=== PATIENT | female | born 1940 | race Caucasian/White ===

== ENCOUNTER 2024-10-05 06:59 | Day surgery (SDC) | payer MEDICARE, OTHER, SELFPAY ==
[2024-10-05] VITALS (14 sets, daily range): BP systolic 81–116; BP diastolic 47–83; BMI 22.1
[2024-10-05] MEDS: LOW STRENGTH ASPIRIN 324 MG PO (07:31)
[2024-10-05 08:14] LABS: Blood Urea Nitrogen 28 mg/dl (7-17); Calcium 9.7 mg/dl (8.4-10.2); Carbon Dioxide 30 mmol/L (22-30); Chloride 99 mmol/L (98-107); Estimated Creatinine Clearance 35 ml/min; Glucose 110 mg/dl (70-99); Potassium 4.2 mmol/L (3.5-5.1); Sodium 138 mmol/L (135-145); eGFR > 60.00
[2024-10-05 08:27] LABS: Hemoglobin 14.8 g/dL (12.0-16.0); Mean Corp Hgb Conc. 34.4 g/dL (33.0-37.0); Mean Corpuscular Hgb 30.5 pg (27.0-31.0); Mean Corpuscular Volume 88.5 fL (81.0-99.0); Mean Platelet Volume 10.7 fL (7.4-10.4); Platelet Count 170 10^3/uL (130-400); Red Blood Cell Count 4.86 10^6/uL (4.20-5.40); Red Cell Dist. Width 14.3 % (11.5-14.5); White Blood Cell Count 5.5 10^3/uL (4.8-10.8)
--- NOTE | 2024-10-05 10:43 | ITS.CL.CATH ---
Tool Design Checker - Catheterization
Cardiac Catheterization
Procedure Report:
LEFT HEART CATHETERIZATION
Date of Procedure: October 05, 2024
Procedures performed:
1: Coronary angiography
2: Left ventriculography
Primary Care Physician: Dr. Dayana Dotson
Primary Laboratory Scientist: Dr. Quinten Pepper
INDICATION: The patient is an 84-year-old woman with a past medical history significant for possible TIA in 2018 and known significant mitral regurgitation that has been followed and stable since 2008. She recently developed exertional dyspnea and
shortness of breath and was found on echocardiography on September 12 to be in new atrial fibrillation. Since adding Bumex 1 mg daily she has felt better with less exertional dyspnea. In light of her new symptoms and known severe mitral regurgitation
she is referred for cardiac catheterization in preparation for possible mitral valve repair.
ACCESS: The patient was prepped and draped in usual sterile fashion. A 5 Greek sheath was placed in the right radial artery using the Seldinger over the wire technique.
HEMODYNAMIC FINDINGS (mmHg):
LV(s/d,EDP): 115/12, 17
Ao(s/d,m): 115/67, 90
ANGIOGRAPHIC FINDINGS:
Single-plane Left Ventriculography in WOODS Projection: The left ventricular size size appears top normal subjectively. LV systolic function is preserved and visually estimated at 65%. 4+ mitral gravitation. Severe left atrial dilation.
Coronary Angiography:
Dominance: Right
Left Main: Normal
Left Anterior Descending: The left anterior descending artery is a large-caliber vessel that gives rise to 2 major diagonal branches. These vessels are widely patent with no focal disease and normal flow.
Left Circumflex: The left circumflex is a medium caliber nondominant system that gives rise to 1 major obtuse marginal branch which appears angiographically normal with normal flow.
Right Coronary: The right coronary artery is a large-caliber dominant vessel that gives rise to a medium caliber posterior descending artery and large branching posterior left ventricular branch system that perfuses the lateral wall. These vessels
are widely patent with no focal disease and normal flow.
Fluoroscopy Time (min): 2.5
Radiation Dose (mGy): 470
DAP (Gy.cm2): 905
Closure device: None. A TR band was applied for hemostasis at the right wrist.
Complications: None.
ASSESSMENT:
1: Normal coronary arteries.
2: Severe mitral regurgitation with preserved LV systolic function.
CONCLUSIONS and RECOMMENDATIONS:
1: Proceed with mitral valve repair evaluation as scheduled. The patient is having CT surgery consultation with Dr. Darrion Osborne next .
2: Resume medical therapy including Raphaelis neil.
Le Elliott M.D.
Copy to: Dr. Dayana Dotson
[2024-10-05] MEDS: NSS 1000 IV (10:48)
[2024-10-05] MEDS: LOPRESSOR 50 MG PO (11:05)
== END 2024-10-05 13:30 | disposition home or self-care (01) ==
LOC: CATH 06:59
PROVIDERS: ATTENDING PHYSICIAN Internal Medicine Interventional Cardiology; FAMILY PHYSICIAN Family Medicine; OTHER PHYSICIAN Internal Medicine Cardiovascular Disease
DX: I34.0 Nonrheumatic mitral (valve) insufficiency (principal); R06.09 Other forms of dyspnea; R06.02 Shortness of breath; I48.91 Unspecified atrial fibrillation; Z79.01 Long term (current) use of anticoagulants
CPT/HCPCS: 80048; 85027; 93458; C1769; C1894; Q9967

== ENCOUNTER 2024-10-20 07:05 | Day surgery (SDC) | payer MEDICARE, OTHER, SELFPAY ==
[2024-10-20 07:52] VITALS: BMI 21.8
== END 2024-10-20 11:31 | disposition home or self-care (01) ==
LOC: CATH 07:05
PROVIDERS: ATTENDING PHYSICIAN Internal Medicine Cardiovascular Disease; FAMILY PHYSICIAN Family Medicine; OTHER PHYSICIAN Internal Medicine Cardiovascular Disease
DX: I48.92 Unspecified atrial flutter (principal); I48.91 Unspecified atrial fibrillation; E78.00 Pure hypercholesterolemia, unspecified; I08.1 Rheumatic disorders of both mitral and tricuspid valves; Z86.73 Personal history of transient ischemic attack (TIA), and cerebral infarction without residual deficits; Z79.01 Long term (current) use of anticoagulants; I70.0 Atherosclerosis of aorta; I08.8 Other rheumatic multiple valve diseases
CPT/HCPCS: 93312; 93320; 93325

== ENCOUNTER 2024-11-08 04:54 | Inpatient (IN) | payer MEDICARE, OTHER, SELFPAY ==
[2024-10-20 11:58] VITALS: BMI 21.3
[2024-10-20 13:09] LABS: INR 1.31; PT 16.8 Sec (11.4-14.6)
[2024-10-20 13:10] LABS: Urine Albumin 1+ (Neg - Trace); Urine Bilirubin Negative (Negative); Urine Character Slightly Cloudy (Clear); Urine Color Yellow; Urine Glucose Negative (Negative); Urine Ketone Negative (Negative); Urine Leukocyte Negative (Negative); Urine Nitrite Negative (Negative); Urine Occult Blood 1+ (Negative); Urine Urobilinogen Negative (Neg - 1+)
[2024-10-20 13:10] LABS: APTT 34.2 Sec (23.4-35.0)
[2024-10-20 13:17] LABS: % Basophils 0.8 % (0-2); % Eosinophils 0.5 % (0-6); % Immature Granulocytes 0.2 % (0-0.5); % Lymphocytes 18.1 % (20.5-51.1); % Monocytes 8.4 % (1.7-9.3); Absolute Basophils 0.1 10^3/uL (0-0.2); Absolute Lymphocytes 1.1 10^3/uL (1.2-3.4); Absolute Monocytes 0.5 10^3/uL (0.1-0.6); Absolute Neutrophils 4.4 10^3/uL (1.4-6.5); Hematocrit 42.3 % (37.0-47.0); Hemoglobin 14.5 g/dL (12.0-16.0); Mean Corp Hgb Conc. 34.3 g/dL (33.0-37.0); Mean Corpuscular Hgb 30.4 pg (27.0-31.0); Mean Corpuscular Volume 88.7 fL (81.0-99.0); Mean Platelet Volume 10.8 fL (7.4-10.4); Nucleated Red Blood Cells % 0 %; Platelet Count 153 10^3/uL (130-400); Red Blood Cell Count 4.77 10^6/uL (4.20-5.40); Red Cell Dist. Width 13.7 % (11.5-14.5); White Blood Cell Count 6.1 10^3/uL (4.8-10.8)
[2024-10-20 13:49] LABS: ALT (SGPT) 32 U/L (0-35); AST (SGOT) 34 U/L (14-36); Albumin 4.6 g/dl (3.5-5.0); Alkaline Phosphatase 71 U/L (38-126); Blood Urea Nitrogen 26 mg/dl (7-17); Calcium 9.6 mg/dl (8.4-10.2); Carbon Dioxide 28 mmol/L (22-30); Chloride 102 mmol/L (98-107); Direct Bilirubin 0.2 mg/dl (0.0-0.4); Estimated Creatinine Clearance 35 ml/min; Glucose 96 mg/dl (70-99); Sodium 140 mmol/L (135-145); Total Bilirubin 1.3 mg/dl (0.2-1.3); Total Protein 6.6 g/dl (6.3-8.2); eGFR > 60.00
--- NOTE | 2024-10-20 13:53 | CM ---
CM following for DC planning needs.
Met w/ patient + son, Simon during PATs for planned MVR.
Pt. resides alone in a private, 1 STH w/ 2 TOBY. Pt. is recently (since 05/2024). She is functionally indep. w/ ADLs, mobility without the use of any assisted device. Son resides closeby and will assist PRN.
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
Pt. has RX plan and uses [facility] in [place].
We reviewed pre and post op routines.
Soap, shower instructions and Cardiac Surgery booklet provided.
We reviewed post op restrictions to include lifting, driving, flying.
We discussed post op MD appointments, Cardiac Rehab and visit from CT Transitional Care RN.
Plan is for CT Surgery, 10/25.
Anticipated DC plan is for home w/ CT Transitional Care RN.
CM to follow.
[2024-10-20 14:30] LABS: Urine Amorphous Seen; Urine Squamous Cell 0-2 /LPF (Few)
[2024-10-20 14:33] LABS: Urine Red Blood Cell 0-2 /HPF (0-2); Urine White Cell 0-2 /HPF (0-5)
[2024-10-20 15:14] LABS: Glycohemoglobin (HgbA1c) 5.4 % (4.0-5.6)
[2024-11-08] VITALS (15 sets, daily range): BP systolic 90–146; BP diastolic 41–108; BMI 21.4
[2024-11-08] MEDS: MAGNESIUM OXIDE 500 MG PO (05:36)
[2024-11-08] MEDS: LOPRESSOR 25 MG PO (05:36)
[2024-11-08] MEDS: PROTONIX 40 MG PO (05:36)
[2024-11-08] MEDS: BACTROBAN 2% OINTMENT 1 APPLIC NASAL ×2 (05:37→22:39)
--- NOTE | 2024-11-08 06:10 | W.CVOR.SURPR ---
CVOR Surgeon Immed Pre Op
-
I have examined this patient prior to performance of the scheduled procedure.
The patient's condition is unchanged from the time of the dictated/written History and
Physical and the patient is able to undergo the scheduled procedure.
Mv repair
TV repair
MAZE NENA E
[2024-11-08 07:11] LABS: ACT+ - POC 123 Seconds (82-134)
[2024-11-08 07:33] LABS: Urine Albumin 2+ (Neg - Trace); Urine Bilirubin Negative (Negative); Urine Character Clear (Clear); Urine Color Yellow; Urine Glucose Negative (Negative); Urine Ketone Negative (Negative); Urine Leukocyte Negative (Negative); Urine Nitrite Negative (Negative); Urine Occult Blood Negative (Negative); Urine Urobilinogen Negative (Neg - 1+)
[2024-11-08 08:25] LABS: ACT+ - POC 969 Seconds (82-134)
[2024-11-08 08:52] LABS: B.E. - POC -1.8 mmol/L; Glucose - POC 97 mg/dl (70-99); HCO3 - POC 23 mmol/L (21-28); Hematocrit - POC 32 % PCV (37-47); Hemodilution- POC No; Hemoglobin Calculated - POC 10.7; Ionized Calcium - POC 1.14 mmol/L (1.15-1.33); Lactate - POC < 0.30 mmol/L (0.36-0.75); PCO2 - POC 40 mmHg (35-48); PO2 - POC 469 mmHg (83-108); Potassium - POC 3.9 mmol/L (3.5-5.1); Sodium - POC 142 mmol/L (136-145); Specimen Type - POC Arterial; pH - POC 7.38 (7.35-7.45)
--- NOTE | 2024-11-08 08:55 | CM ---
Reviewed chart. Mrs. Antunez is in the operating room today. Prior to admission she resides alone in a one story home with two steps to enter. Prior to admission she was independent with ambulation and adls. Prior to admission she does not have
any DME in the home. She has a prescription plan nad uses [facility]. She has a son who resides nearby and is supportive. Medical work-up in progress. The discharge plan is to return home with a home visit by the Transitional Care Nurse
when medically stable.
[2024-11-08 08:57] LABS: Urine Amorphous Seen
[2024-11-08 08:58] LABS: Urine Squamous Cell 0-2 /LPF (Few); Urine Urothelial Cell 0-2 /LPF (FEW)
[2024-11-08 08:59] LABS: Urine Bacteria Moderate (Negative); Urine Red Blood Cell 0-2 /HPF (0-2); Urine White Cell 0-2 /HPF (0-5)
[2024-11-08 09:41] LABS: ACT+ - POC 723 Seconds (82-134)
[2024-11-08 09:43] LABS: B.E. - POC 2.4 mmol/L; Glucose - POC 122 mg/dl (70-99); HCO3 - POC 23 mmol/L (21-28); Hematocrit - POC 30 % PCV (37-47); Hemodilution- POC Yes; Hemoglobin Calculated - POC 10.4; Ionized Calcium - POC 0.89 mmol/L (1.15-1.33); Lactate - POC < 0.30 mmol/L (0.36-0.75); PCO2 - POC 24 mmHg (35-48); PO2 - POC 486 mmHg (83-108); Potassium - POC 5.1 mmol/L (3.5-5.1); Sodium - POC 139 mmol/L (136-145); Specimen Type - POC Arterial
[2024-11-08 09:45] LABS: ACT+ - POC > 1003 Seconds (82-134)
[2024-11-08 10:10] LABS: ACT+ - POC 555 Seconds (82-134)
[2024-11-08 10:56] LABS: B.E. - POC 2.8 mmol/L; Glucose - POC 131 mg/dl (70-99); HCO3 - POC 26 mmol/L (21-28); Hematocrit - POC 25 % PCV (37-47); Hemodilution- POC Yes; Hemoglobin Calculated - POC 8.5; Ionized Calcium - POC 1.03 mmol/L (1.15-1.33); Lactate - POC 0.34 mmol/L (0.36-0.75); O2 Saturation %Calculated-POC 99.9 % (94-98); PCO2 - POC 35 mmHg (35-48); PO2 - POC 282 mmHg (83-108); Potassium - POC 4.6 mmol/L (3.5-5.1); Sodium - POC 144 mmol/L (136-145); Specimen Type - POC Arterial; pH - POC 7.49 (7.35-7.45)
[2024-11-08 10:59] LABS: ACT+ - POC 120 Seconds (82-134)
[2024-11-08 11:17] LABS: B.E. - POC 0.4 mmol/L; Glucose - POC 128 mg/dl (70-99); HCO3 - POC 24 mmol/L (21-28); Hematocrit - POC 27 % PCV (37-47); Hemodilution- POC Yes; Hemoglobin Calculated - POC 9.3; Ionized Calcium - POC 1.26 mmol/L (1.15-1.33); Lactate - POC 0.62 mmol/L (0.36-0.75); PCO2 - POC 35 mmHg (35-48); PO2 - POC 522 mmHg (83-108); Potassium - POC 4.3 mmol/L (3.5-5.1); Sodium - POC 144 mmol/L (136-145); Specimen Type - POC Arterial; pH - POC 7.45 (7.35-7.45)
[2024-11-08 12:17] LABS: B.E. - POC -3.2 mmol/L; Glucose - POC 151 mg/dl (70-99); HCO3 - POC 22 mmol/L (21-28); Hematocrit - POC 31 % PCV (37-47); Hemodilution- POC Yes; Hemoglobin Calculated - POC 10.5; Ionized Calcium - POC 1.18 mmol/L (1.15-1.33); Lactate - POC 1.94 mmol/L (0.36-0.75); PCO2 - POC 37 mmHg (35-48); PO2 - POC 547 mmHg (83-108); Potassium - POC 3.7 mmol/L (3.5-5.1); Sodium - POC 145 mmol/L (136-145); Specimen Type - POC Arterial; pH - POC 7.38 (7.35-7.45)
[2024-11-08 12:52] LABS: Glucose - Point of Care 183 mg/dl (70-99)
[2024-11-08 13:04] LABS: B.E. - POC -1.4 mmol/L; Blood Urea Nitrogen - POC 17 mg/dl (3-120); Chloride - POC 112 mmol/L (96-111); Creatinine - POC 0.71 mg/dl (0.3-1.0); Glucose - POC 185 mg/dl (70-99); HCO3 - POC 23 mmol/L (21-28); Hematocrit - POC 30 % PCV (37-47); Hemodilution- POC Yes; Hemoglobin Calculated - POC 10.3; Ionized Calcium - POC 1.14 mmol/L (1.15-1.33); Lactate - POC 3.11 mmol/L (0.36-0.75); O2 Saturation %Calculated-POC 99.2 % (94-98); PCO2 - POC 35 mmHg (35-48); PO2 - POC 136 mmHg (83-108); Potassium - POC 3.2 mmol/L (3.5-5.1); Sodium - POC 147 mmol/L (136-145); Specimen Type - POC Arterial; pH - POC 7.42 (7.35-7.45)
[2024-11-08] MEDS: TYLENOL PO ×2 (13:06→22:12)
[2024-11-08] MEDS: NEURONTIN PO ×3 (13:06→22:12)
[2024-11-08] MEDS: VITAMIN C PO (13:06)
[2024-11-08] MEDS: ANCEF 10 IV ×2 (13:06)
[2024-11-08] MEDS: NSS 500 IV (13:06)
[2024-11-08] MEDS: PITRESSIN 100 IV (13:07)
[2024-11-08] MEDS: LR 250 ML IV (13:10)
--- NOTE | 2024-11-08 13:12 | W.PN.CT.SURG ---
CT Surgery Operative Note
-
CARDIAC SURGERY OPERATIVE REPORT
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
Postoperative Diagnosis: Same, acute mild RV and LV systolic and diastolic heart failure
Procedure(s) Performed:
1. Standard sternotomy with aortic and bicaval cannulation
2. Open surgical left atrial maze and right atrial maze [combination of RF and cryoablation]
3. Left atrial appendage exclusion [45 mm clip]
4. Radical mitral valve repair [triangular resection of P2 flail segment with primary repair, cleft closure between P2 and P3 and P1 and P2, 34 mm band annuloplasty]
5. Tricuspid valve repair [30 mm band annuloplasty]
6. Placement of temporary atrial and ventricular pacing wires
7. Transesophageal echocardiography
Date of Surgery: 11/08/2024
Comorbidities:
1. Degenerative mitral valve disease with severe insufficiency, type II pathology with some component of type I pathology
2. Functional tricuspid valve insufficiency
3. PVCs
4. TIA
5. Atrial fibrillation
6. Osteoporosis
7. Supraventricular tachycardia
8. CHF, significant volume overload
Attending Surgeon: Salbador Osborne MD, MS
Assistants: Ed Diallo PA-C (present and necessary to library assistant, retraction, suction, exposure, suture management, and wound closure under my direction)
Anesthesiology: Matthew Hernandez MD and Jorgito Petersen CRNA
Scrub and Circulating RNs: Abi Cisse RN, Octavia Bajwa RN
Rn Dermatology: Jacqueline Palacios CCP
Anesthesia: GETA
EBL: per perfusion records
Products: 1 prbcs (for hemodilution)
CPB Time: 122 minutes
Aortic Cross Clamp Time: 97 minutes
Indication(s) for Procedures: This is an 84-year-old female with severe mitral valve sufficiency with concomitant moderate to moderately severe tricuspid insufficiency that is functional in nature. She has been experiencing more shortness of breath
and fatigue in comparison to a year ago she feels worse. Really she describes more symptoms in the last month really around the time that she developed atrial fibrillation. She was offered surgical repair of both her valves as well as treatment of
her atrial fibrillation in the form of the maze and left atrial appendage exclusion..
Mitral Valve Description: Thickening of both the anterior and posterior leaflets, flail segment of the P2 scallop with multiple torn cords, asymmetrical dilation at the P2 P3 to commissure area, large cleft between P1 and P2 and P2 and P3.
Tricuspid Valve Description: Functional, dilated annulus, normal-appearing leaflets.
Findings: Left ventricular ejection fraction preoperatively was 55% with no significant regional wall motion abnormalities. She does have a history of cardiomyopathy with mildly dilated right and left ventricles. Her left atrium and right atrium
are also dilated. Following surgery EF did reduce to +45% and she had some septal inferior wall hypokinesis with dyskinesia. The lateral wall was moving appropriately. Her right ventricle did appear to be mild to mild to moderately depressed
after valve repair. Her mitral valve was repaired using a combination of resection and band annuloplasty. There was an obvious flail segment of P2 with multiple torn cords this was resected in a triangular fashion and reapproximated primarily. I
then close collapse along the P1 P2 and P2 P3 segment by 34 mm band annuloplasty was secured to place using a total of 12 nonpledgeted 2 Ethibond sutures from trigone to trigone with core knots. Dynamic inflation of the ventricle demonstrated
appropriate coaptation. The tricuspid valve was functionally dilated and a total of 9 nonpledgeted 2 Ethibond sutures were placed on the anterior septal commissure to the midportion of the septal leaflet. This secured a 30 mm band annuloplasty
into place. At the conclusion of the case off cardiopulmonary bypass there was no residual mitral valve insufficiency and no residual tricuspid valve insufficiency. The mean gradient across the mitral valve was 2 mmHg and the mean gradient across
tricuspid valve was 1 mmHg. She did have significant PACs conclusion of the case and required defibrillation x 2 likely secondary to air entrainment down the coronary. Follow-up transesophageal echocardiogram demonstrated that there was still
residual air coming out of her pulmonary veins and sitting in her left atrium. There was difficulty with floating the [place] after the case and so a cardiac index was not obtained. However PA pressures were appropriately in the 30s. She did require
1 unit of PRBCs for hemodilution. She left the OR on 6 of epi, 5 with dobutamine, 8 on Levophed
Ablation Lines:
1. Box lesion to posterior LA wall
2. NENA lesion + NENA Exclusion + Division of Ligament of Ilya
3. Coronary sinus lesion
4. Posterior mitral annular line toward P2/P3
5. Tricuspid annular line
6. RAA line
7. SVC and IVC lines
Specimen(s): none.
Prosthesis:
1. 45mm NENA Clip, [id number]
2. 34 mm Tian physio flex annuloplasty band, serial #[id number]
3. 30 mm Medtronic triad tricuspid annuloplasty band, serial number [id number]
4. EVARREST hemostatic agent upon the right atrium as it was extremely thin walled.
5. Multiple 5-0 Prolene suture
Description of Procedure: The patient was taken to the operating room. Their identity and procedure to be performed were verified and they were positioned supine on the operating table. Induction via general anesthesia with endotracheal intubation
was performed and central venous access and arterial monitoring were inserted. A preoperative transesophageal echocardiogram was performed to assess cardiac function and valvular function. The patient was then prepped and draped from chin to feet in
a sterile fashion. A preoperative time-out was performed with all members of the team present. A midline chest incision was performed along with median sternotomy. The innominate vein was isolated. Full heparinization was given (a total of 30,000
units). We created a pericardial well. The aortic cannulation site was chosen where it was soft, pliable, and free of calcium. Cannulation was performed with an arterial cannula in the ascending aorta, angled metal tip cannular in the superior vena
cava and straight bendable cannula in the inferior vena cava. The arterial cannula line had an appropriate bounce and correlating pressures. Next, a root vent/antegrade cannula was inserted into the ascending aorta. The ACT was confirmed to be over
400 and retrograde autologous priming was performed before commencing cardiopulmonary bypass. At this point the SVC was away from the right pulmonary artery and the oblique sinus was developed. The encompass clamp was then passed
underneath the SVC and IVC across the dorsal oblique sinuses, wrist. 3 successful pairs ablation were then performed with RF ablation. The pulmonary artery was away from the aorta to facilitate a clamp site. Sondergaard�s groove was
developed after creating the oblique sinus. The aortic cross-clamp was placed after decreasing the flow on the bypass and mean arterial pressure. A total of 1.2L initial dose of antegrade Del-Nido cardioplegia solution was given and planned for
re-dosing every 75 minutes as necessary. There was rapid electro-mechanical arrest of the heart at 250 cc of cardioplegia. The left ventricle was observed for distention on echocardiogram and manual palpation. Cold slush was placed into a lap on the
RV and we systemically cooled to 34 degrees centigrade. Once the heart was fully arrested was rotated medially and the left atrial appendage was clipped with a 45 mm device flush the base after dividing the ligament of Ilya.
Carbon dioxide was used to flood the field. Next, the mitral valve was accessed via the left atrium followed by valve analysis. Additional cryo lines were then performed at the coronary sinus, mitral annulus, and left atrial appendage with 2
minutes of freezing time each. The mitral valve was repaired as described above. The left atrium was then reapproximated with 3-0 Prolene after de-airing.
While the heart was still arrested, I opened the right atrium longitudinally. I then performed a cryo lesion set across the tricuspid valve annulus and used RF ablation for the right atrial appendage, SVC and IVC lines. The cathy terminalis was
also cut sharply. Annular sutures were placed starting at the mid-portion of the septal leaflet avoiding the AV node and working counter-clockwise toward the anteroseptal leaflet commisure. The tricuspid valve was repaired as described above and
the swan was manually replaced into the right ventricle. The patient was placed into a steep Trendelenburg position and de-airing maneuvers were then performed. At this point flows in the pump were lowered and the cross-clamp was removed with the
root vent turned on. The RA suture line was closed in two layers with 5-0 prolene in a running fashion while the heart was reperfusing and bleeding.
De-airing maneuvers were performed and temporary atrial and ventricular pacing wires were placed at the SVC/RA junction and base of the right ventricle, respectively. Transesophageal echocardiography revealed no evidence of systolic anterior motion
and ventricular function was normal. Once de-airing was satisfactory the left ventricular and root vents were removed. After verifying acceptable parameters, we initiated weaning from cardiopulmonary bypass. Once we were off cardiopulmonary bypass,
the venous cannulas was clamped and removed sequentially. A test dose of protamine was administered and the patient was monitored for any adverse reaction before resuming protamine. Once half of the protamine dose was delivered, pump suckers were
turned off and the systolic blood pressure was lowered for aortic decannulation. The aortic cannula was removed and purse strings were tied down. All cannulation sites were oversewn with a 4-0 prolene. The left atrial suture line was inspected and
hemostasis was confirmed. Mediastinal hemostasis was obtained. Two #24 Kevin drains were placed within the pericardium. The sternum was approximated with 4 #7 single and 3 #8 double stainless steel wires. Fascia was approximated with #1 vicryl
suture. The subcutaneous, dermis and epidermis were closed in layers in a running fashion. The skin wound was cleansed and dressed.
All instrument, sponge, and needle counts were confirmed to be correct x 2 at the end of the operation. While the draping, the patient did progress into ventricular fibrillation x 2 requiring defibrillation. Reassessment of the heart under SARAI
demonstrated there was residual air emanating from the pulmonary veins and sitting in the left atrium. The patient was placed into a steep Trendelenburg position with the right side up. The [place] was then refloated under echo guidance. Inotropic
support was initiated. The patient was transferred to the cardiac intensive care unit in critical but stable condition.
I, Dr. Salbador Osborne, was present, scrubbed for, and performed all critical elements of this procedure.
Salbador Osborne MD, MS
Cardiothoracic Surgeon
[facility]
This dictation was created using the Creator Up dictation system. Please excuse any grammatical, typographical, or 'sound alike' errors
--- NOTE | 2024-11-08 13:15 | PTCARENOTE ---
pt received from CVOR @~1230, sedated on Precedex gtt, RASS -5. core temp 93.4F, bear hugger applied. 100% AV paced on the monitor, DDI 90/16/16. PAP 30s/10s. CVP ~12, CI 1.83. Dobutamine gtt running as ordered. SBP 100-130s, Levophed gtt running as
ordered. Epinephrine gtt running as ordered. Vasopressin gtt initiated as ordered. pt mechanically ventilated, ETT #7.5, 22cm @lip. SIMV 14, TV 450, PEEP 8, FIO2 40%. POX 100%. CTx2, no air leak or crepitus noted. Zee in place, tea colored/bloody
urine. BRUSH PAINTER aware. surgical sites intact. RIJ cordis/swan maintained. R Radial Teressa flushed, zeroed, and calibrated. L femoral Teressa flushed, zeroed, and calibrated. PIV. insulin gtt running as ordered. pt in reverse Trendelenburg and tilted to R
side per Dr. Osborne, labs drawn as ordered. see worklist for VS, I&O, and assessment.
[2024-11-08 13:26] LABS: Glucose - Point of Care 183 mg/dl (70-99)
[2024-11-08 13:27] LABS: Hematocrit 31.3 % (37.0-47.0); Hemoglobin 10.9 g/dL (12.0-16.0); Platelet Count 100 10^3/uL (130-400)
[2024-11-08 13:28] LABS: B.E. -3.7 mmol/L; HCO3 20.6 mmol/L (21-28); Ionized Calcium 1.13 mMOL/L (1.15-1.33); O2 Saturation % 97.4 % (94-98); PCO2 34 mmHg (32-35); PO2 160 mmHg (83-108); Potassium 3.5 mMOL/L (3.5-5.1); Sodium 139 mMOL/L (136-145); pH 7.39 (7.35-7.45)
[2024-11-08 13:30] LABS: Mixed Venous O2 Saturation 81.5 %
[2024-11-08] MEDS: KCL 50 IV ×5 (13:36→23:32)
--- NOTE | 2024-11-08 13:45 | CON.CAR ---
Addendum entered and electronically signed by David Keating MD 11/08/24 17:02:
I saw and examined the patient.
The Pro Shop Attendant's note was reviewed and I agree with the note.
Comment: Briefly, 84-year-old woman past medical history of heart failure with preserved ejection fraction in the setting of severe mitral and tricuspid regurgitation as well as atrial fibrillation who underwent mitral valve repair/tricuspid valve
repair/left atrial appendage clip/maze earlier today.
At the time my evaluation in the CVICU she was requiring multiple inotropes and pressors (dobutamine, norepi, epi, vasopressin)
Urgent bedside echo performed which showed severe right ventricular systolic dysfunction, preserved LV function and no pericardial effusion
Plan for placement of Impella RP for mechanical support of the right ventricle
Telemetry showing sinus rhythm with frequent PACs, agree with continuing amiodarone to maintain sinus rhythm
Discussed with CT surgery team and interventional cardiology at bedside
Original Note:
Consultation
Consultation Request
Date/Time Consultation Requested: 11/08/2024
Date/Time Consultation Performed: 11/08/2024
Requesting Provider: Dr. Osborne
Performing Provider: Monet Levi PA-C for Dr. Keating
Reason for Consultation: s/p MV repair, TV repair, left atrial appendage clip and Maze
Medical History
-
History of Present Illness:
Patient is a 84-year-old female with severe symptomatic mitral valve regurgitation, moderate to severe tricuspid regurgitation, heart failure with preserved ejection fraction, paroxysmal atrial fibrillation on chronic anticoagulation with Eliquis,
history of TIA and migraine headache. Patient developed symptomatic mixed valvular disease and worsening heart failure symptoms requiring diuretic therapy. She underwent cardiac catheterization September 2024 which demonstrated no significant coronary
artery disease. She now presents for elective valve repair of mitral and tricuspid valves as well as maze and left atrial appendage clipping. Cardiology being asked to see patient postoperatively.
PMH:
Severe Mitral valve regurgitation
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
PVCs
H/o TIA
Paroxysmal Atrial fibrillation
Osteoporosis
Supraventricular tachycardia
Heart failure with preserved ejection fraction
Past Medical History
Past Medical History: Other (see HPI)
Past Surgical History: Orthopedic (Right knee arthroscopy 2019), Tonsilectomy and Other (Cataract extraction)
Social History
Tobacco: Non-Smoker
Alcohol: None
Drug: None
Personal:
Living: Alone
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
Family History
Family History: Other (Father from leukemia, mother from colon cancer, sibling has lung cancer)
Allergies / Home Medications
Allergy/AdvReac Type Severity Reaction Status Date / Time
No Known Allergies Allergy Verified 10/20/24 07:52
�Medication �Instructions �Recorded �Confirmed �Type
Lactobacillus acidophilus 10 10,000 mmu cells PO DAILY 10/05/24 11/08/24 History
billion cell capsule (Probiotic) Supplement
Magnesium Maleate 100 mg PO BID Supplement 10/05/24 11/08/24 History
[place] 3 [place] Oil 1 tab PO DAILY Supplement 10/05/24 11/08/24 History
apixaban 5 mg tablet (Eliquis) 5 mg PO BID Blood Clot 10/05/24 11/08/24 History
Prevention/Tx
ascorbic acid (vitamin C) 500 mg 500 mg PO DAILY Supplement 10/05/24 10/20/24 History
tablet (Vitamin C)
bumetanide 1 mg tablet 0.5 mg PO DAILY Fluid 10/05/24 11/08/24 History
Retention/Swelling
cholecalciferol (vitamin D3) 25 25 mcg PO DAILY Supplement 10/05/24 10/20/24 History
mcg (1,000 unit) capsule (Vitamin
D3)
coQ10 (ubiquinol) 100 mg capsule 100 mg PO DAILY Supplement 10/05/24 11/08/24 History
metoprolol tartrate 50 mg tablet 50 mg PO BID Blood Pressure 10/05/24 11/08/24 History
multivitamin with minerals-folic 1 tab PO DAILY Supplement 10/05/24 10/20/24 History
acid 0.4 mg tablet
zinc 50 mg tablet 50 mg PO DAILY Supplement 10/05/24 11/08/24 History
sumatriptan succinate 25 mg tablet 25 mg PO ONCE migraine 10/17/24 11/08/24 History
calcium 500 mg tablet 1,000 mg PO BID Supplement 10/20/24 11/08/24 History
Review of Systems
-
Unable to obtain full review of systems at this time due to: Patient Intubation
Physical Exam
Vital Signs
Temp Pulse Resp BP Pulse Ox
93.4 F L 73 14 90/62 99
11/08/24 13:00 11/08/24 13:00 11/08/24 13:00 11/08/24 11:46 11/08/24 13:11
GEN: Intubated and sedated
HEENT: supple, anicteric, mmm
LUNGS: CTA, no wheezes/rales on ventilator
CV: Reg, S1/S2, no murmur, rub or gallop
ABD: soft, BS+, NT/ND
EXT: No edema, clubbing or cyanosis
NEURO: Unable to assess as patient intubated and sedated
SKIN: No rash, warm, dry, pink
Lab Results
Pending
Impression / Plan
-
PCP: Dayana Dotson
Floor Installation Mechanic: Quinten Pepper
Impression:
Severe Mitral valve regurgitation
s/p mitral valve repair with 34 mm band annuloplasty band 11/08/2024, Dr. Osborne
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
s/p tricuspid repair with 30 mm band annuloplasty band
Paroxysmal atrial fibrillation
s/p left right and left atrial maze (combination of cryo and RF ablation) 11/08/2024, Dr. Osborne
Left atrial appendage clip 45 mm device 11/08/2024, Dr. Osborne
PVCs
H/o TIA
Paroxysmal Atrial fibrillation
Osteoporosis
Supraventricular tachycardia
Heart failure with preserved ejection fraction
Cardiac catheterization 10/05/2024: LM: Patent. LAD: Patent. Left circumflex: Patent. RCA: Patent. HEMODYNAMIC FINDINGS (mmHg): LV(s/d,EDP): 115/12, 17; Ao(s/d,m): 115/67, 90. LVG EF 65%, +4 MR
Preop SARAI 11/08/2024: Severe MR with prolapse of P2 with flail segment. Mild to moderate TR. By atrial enlargement. Post operative SARAI status post MV repair with annuloplasty band no paravalvular leak and leaflets functioning appropriately. Mean
gradient 2. Status post TR repair with 30 mm annuloplasty band with residual trace TR, mean gradient 1 mmHg. EF 45%. Status post left atrial appendage exclusion clip well-seated no flow seen into the left atrial appendage. Significant amount of
residual gas/air in left atrium. Moderate to severe RV systolic dysfunction.
Echo 09/12/2024: EF 50 to 55%. No regional wall motion abnormalities. Mild concentric LVH. Normal RV size and function. Severely dilated left atrium with volume index 57.0 mL/m2. Severe mitral regurgitation with moderate mitral annular
calcification. Moderate tricuspid regurgitation. RVSP 33.3 mmHg.
Plan:
-S/p mitral valve repair with 34 mm band, s/p TR repair with 30 mm band, left atrial appendage exclusion 45 mm device and left and right atrial maze (combination of cryo and RF ablation) on 11/08/2024
-Postprocedure SARAI EF 45% s/p MV repair no regurgitation mean gradient 2 mmhg, s/p TR repair with trace TR, mean gradient 1 mmHg. Status post left atrial appendage exclusion clip well-seated no flow seen into the left atrial appendage.
-IntraOp patient had micro air emboli with episode of V-fib requiring resuscitation. Postop SARAI showed significant amount of residual air/gas in left atrium and moderate to severe RV ventricular systolic dysfunction.
-Patient seen and evaluated immediately postoperatively. Remains intubated and sedated.
-Critically ill requiring multiple pressors
-Emergent echo performed urgently upon return to unit. Concern for ongoing RV wall dysfunction and plan for emergent Impella placement in chemical processing laborer.
-Postop EKG shows atrial fibrillation with competing junctional pacemaker at 74 bpm
-Postop chest no evidence of pneumothorax
-Preop hemoglobin 14.5, postop hemoglobin 10.9
-Will continue to follow along closely
Plan discussed with CTS, interventional cardiology, nursing. Critical care time spent 40 minutes
[facility] 11/08/2024:
Patient is a 84-year-old female with severe symptomatic mitral valve regurgitation, moderate to severe tricuspid regurgitation, heart failure with preserved ejection fraction, paroxysmal atrial fibrillation on chronic anticoagulation with Eliquis,
history of TIA and migraine headache. Patient developed symptomatic mixed valvular disease and worsening heart failure symptoms requiring diuretic therapy. She underwent cardiac catheterization September 2024 which demonstrated no significant coronary
artery disease. She now presents for elective valve repair of mitral and tricuspid valves as well as maze and left atrial appendage clipping. Cardiology being asked to see patient postoperatively.
Data Reviewed
-
EKG: Report Reviewed by me, Discussed with Physician and Discussed with Nurse
Radiology: Report Reviewed by me, Discussed with Physician and Discussed with Nurse
Medical Tests (Nuc Med, Echo etc): Report Reviewed by me, Discussed with Physician and Discussed with Nurse
Labs: Labs Reviewed by me, Discussed with Physician and Discussed with Nurse
Old Records: Reviewed
[2024-11-08] MEDS: ALBUMIN 5% 250 IV ×2 (13:49→22:31)
[2024-11-08 13:50] LABS: APTT 30.8 Sec (23.4-35.0); INR 1.48; PT 18.5 Sec (11.4-14.6)
[2024-11-08] MEDS: PACERONE PO (13:55)
[2024-11-08 14:03] LABS: ALT (SGPT) 32 U/L (0-35); AST (SGOT) 194 U/L (14-36); Albumin 2.7 g/dl (3.5-5.0); Alkaline Phosphatase 40 U/L (38-126); Blood Urea Nitrogen 19 mg/dl (7-17); Direct Bilirubin 0.6 mg/dl (0.0-0.4); Estimated Creatinine Clearance 38 ml/min; Glucose 215 mg/dl (70-99); Magnesium 2.6 mg/dl (1.6-2.3); Total Bilirubin 2.1 mg/dl (0.2-1.3); Total Protein 4.5 g/dl (6.3-8.2)
[2024-11-08 14:14] LABS: Blood Urea Nitrogen - POC 14 mg/dl (3-120); Chloride - POC 117 mmol/L (96-111); Creatinine - POC 0.55 mg/dl (0.3-1.0); Glucose - POC 192 mg/dl (70-99); HCO3 - POC 17 mmol/L (21-28); Hematocrit - POC 27 % PCV (37-47); Hemodilution- POC Yes; Hemoglobin Calculated - POC 9.1; Ionized Calcium - POC 1.05 mmol/L (1.15-1.33); Lactate - POC 4.19 mmol/L (0.36-0.75); O2 Saturation %Calculated-POC 99.4 % (94-98); PCO2 - POC 26 mmHg (35-48); PO2 - POC 151 mmHg (83-108); Potassium - POC 2.9 mmol/L (3.5-5.1); Sodium - POC 146 mmol/L (136-145); Specimen Type - POC Arterial; pH - POC 7.43 (7.35-7.45)
[2024-11-08 14:21] LABS: Glucose - Point of Care 191 mg/dl (70-99)
[2024-11-08] MEDS: CALCIUM GLUCONATE 100 IV ×2 (14:21→22:36)
--- NOTE | 2024-11-08 14:25 | PTCARENOTE ---
Albumin 5% 250ml given as ordered. lytes repleted. EKG and CXR completed.
[2024-11-08 14:45] LABS: B.E. -6.4 mmol/L; HCO3 17.7 mmol/L (21-28); O2 Saturation % 97.5 % (94-98); PCO2 30 mmHg (32-35); PO2 150 mmHg (83-108); Sodium 139 mMOL/L (136-145); pH 7.38 (7.35-7.45)
[2024-11-08] MEDS: CALCIUM CHLORIDE 10% SYRINGE 1000 MG IV (14:45)
[2024-11-08 14:46] LABS: B.E. - POC 2.9 mmol/L; Glucose - POC 136 mg/dl (70-99); HCO3 - POC 26 mmol/L (21-28); Hematocrit - POC 28 % PCV (37-47); Hemodilution- POC Yes; Hemoglobin Calculated - POC 9.6; Ionized Calcium - POC 1.01 mmol/L (1.15-1.33); Lactate - POC < 0.30 mmol/L (0.36-0.75); PCO2 - POC 34 mmHg (35-48); PO2 - POC 344 mmHg (83-108); Potassium - POC 4.6 mmol/L (3.5-5.1); Sodium - POC 143 mmol/L (136-145); Specimen Type - POC Arterial; pH - POC 7.49 (7.35-7.45)
[2024-11-08 14:48] LABS: Mixed Venous O2 Saturation 75.3 %
--- NOTE | 2024-11-08 14:50 | PTCARENOTE ---
1 unit PRBC given through blood warmer, 1g Calcium given. 100meq Bicarb given as ordered. ECHO completed w/ BOSS MINER at bedside. ABG and MVo2 sent.
[2024-11-08] MEDS: SODIUM BICARBONATE 100 MEQ IV (14:51)
[2024-11-08 15:18] LABS: Glucose - Point of Care 140 mg/dl (70-99)
[2024-11-08] MEDS: VERSED 1 MG IV (15:18)
--- NOTE | 2024-11-08 15:40 | W.PN.UPDATE ---
Update Note
Progress Note Update
Minimal progress with drips, clamped down with SVR >2000, cardiac index of 1.7. Ordered echo at bedside, RV moderately depressed, LV looks more hyperdynamic and underfilled. Lactate slowly rising accounting for increased B.E. Concerning for
progressive RV Failure. Discussed with Son, discussed with IC, plan for RP impella. Consented son for placement of RP impella, risks and benefits discussed, included but not limited to bleeding, perforation, hemolysis, infection, etc. Witnessed by
Ed Diallo PA-C.
--- NOTE | 2024-11-08 15:45 | W.PN.IRAD.PR ---
Procedure Note
-
Placement of Left IJ under Ultrasound Guidance.
Procedure Date: 11/08/24
Physician: Salbador Osborne MD
Consented: SonSimon
Details: I scrubbed per usual and gowned myself in a sterile manner. The field was prepped and drapped in a sterile fashion. 3 minutes was allowed for the Chlorhexidine to dry. The US was draped. Sterile jelly was placed over the left IJ and the IJ
was visualized as was the L common carotid. 3cc of lidocaine was infiltrated to the skin while watching the US. Next, the IJ was accessed confirming a target sign and then threading a flexible catheter over the needle into the IJ. Dark blood was
visualized coming back from the catheter. Next, the wire was threaded without resistance into the catheter. A longitudinal view of the IJ confirmed placement of intra-venous. The skin was nicked. The catheter was removed leaving the wire. The
dilator was inserted over the wire which was able to pulled and pushed without resistance. The cordis was advanced over the wire. A long catheter tubing was connected to the cordis, confirming this was not an arterial placement. The lines were
de-aired and flushed. A biopatch was placed after securing the cordis. A Cap was placed over the cordis and the whole area was covered with gauze and tegaderm.
Complications: none
Salbador Osborne MD
Cardiac Surgeon
[facility]
--- NOTE | 2024-11-08 16:08 | PTCARENOTE ---
Dr. Osborne at bedside. pt given versed 1mg IVP pre procedure, LIJ cordis placed by Dr. Osborne. pt report given to [facility] RN Angelica, pt transported by [facility] RNs to [facility] @~1530.
[2024-11-08 16:10] LABS: Glucose - Point of Care 154 mg/dl (70-99)
[2024-11-08 16:46] LABS: ACT-LR - POC 302 Seconds (116-155)
[2024-11-08 17:45] LABS: B.E. - POC -3.6 mmol/L; Blood Urea Nitrogen - POC 18 mg/dl (3-120); Chloride - POC 115 mmol/L (96-111); Creatinine - POC 0.63 mg/dl (0.3-1.0); Glucose - POC 154 mg/dl (70-99); HCO3 - POC 21 mmol/L (21-28); Hematocrit - POC 36 % PCV (37-47); Hemodilution- POC Yes; Hemoglobin Calculated - POC 12.2; Ionized Calcium - POC 1.42 mmol/L (1.15-1.33); O2 Saturation %Calculated-POC 99.5 % (94-98); PCO2 - POC 34 mmHg (35-48); PO2 - POC 161 mmHg (83-108); Potassium - POC 3.7 mmol/L (3.5-5.1); Sodium - POC 148 mmol/L (136-145); Specimen Type - POC Arterial
[2024-11-08 17:47] LABS: Glucose - Point of Care 137 mg/dl (70-99)
[2024-11-08 17:48] LABS: B.E. -6.8 mmol/L; HCO3 17.3 mmol/L (21-28); O2 Saturation % 96.8 % (94-98); PCO2 30 mmHg (32-35); PO2 171 mmHg (83-108); pH 7.37 (7.35-7.45)
[2024-11-08 17:52] LABS: Hematocrit 36.5 % (37.0-47.0); Hemoglobin 13.4 g/dL (12.0-16.0); Mean Corp Hgb Conc. 36.7 g/dL (33.0-37.0); Mean Corpuscular Hgb 31.9 pg (27.0-31.0); Mean Corpuscular Volume 86.9 fL (81.0-99.0); Mean Platelet Volume 10.1 fL (7.4-10.4); Platelet Count 70 10^3/uL (130-400); Red Cell Dist. Width 13.8 % (11.5-14.5); White Blood Cell Count 10.4 10^3/uL (4.8-10.8)
[2024-11-08 18:07] LABS: Lactic Acid 7.5 mmol/L (0.7-2.0)
[2024-11-08 18:13] LABS: AST (SGOT) 225 U/L (14-36); Albumin 3.3 g/dl (3.5-5.0); Alkaline Phosphatase 33 U/L (38-126); Blood Urea Nitrogen 19 mg/dl (7-17); Carbon Dioxide 20 mmol/L (22-30); Chloride 116 mmol/L (98-107); Estimated Creatinine Clearance 38 ml/min; Glucose 151 mg/dl (70-99); Magnesium 2.5 mg/dl (1.6-2.3); Potassium 3.9 mmol/L (3.5-5.1); Sodium 144 mmol/L (135-145); Total Bilirubin 3.1 mg/dl (0.2-1.3); eGFR > 60.00
[2024-11-08 18:14] LABS: LDH 617 U/L (120-246)
[2024-11-08 18:18] LABS: INR 1.54
[2024-11-08 18:18] LABS: Mixed Venous O2 Saturation 70.6 %
[2024-11-08 18:22] LABS: ALT (SGPT) 42 U/L (0-35)
[2024-11-08 18:24] LABS: Fibrinogen 181 MG/DL (199-459)
[2024-11-08 18:27] LABS: D-Dimer 0.67 ug/mlFEU (0.00-0.50)
--- NOTE | 2024-11-08 18:30 | PTCARENOTE ---
pt received from CCL, RIJ RP Flex Impella in place. P-4. CXR completed. upon arrival to unit, EPI gtt was noted to be turned off, remains on vaso, levo, Precedex, dobutamine and insulin gtts. labs drawn. GALDINO cordis in place, GALDINO brown placed by ADMINISTRATIVE ASSISTANT FRONT DESK
Abi. 1 amp bicarb given. ASA to be held per ADMINISTRATIVE ASSISTANT FRONT DESK. salome mckay applied for core temp 93.2F.
[2024-11-08] MEDS: ANCEF 5 IV (18:38)
[2024-11-08] MEDS: SODIUM BICARBONATE 50 MEQ IV (18:41)
[2024-11-08 19:26] LABS: Glucose - Point of Care 114 mg/dl (70-99)
--- NOTE | 2024-11-08 19:30 | PTCARENOTE ---
assumed care of patient @ 1900. recieved pt laying in bed, intubated and sedated post CVOR, responds to verbal commands, moves all extremities, pupils equal round and reactive. anxious/fidgety on waking. Junctional vs afib on tele monitor HRs
60s-120s. BP labile. Titrating pressors to keep maps >70. CVP ~ 15. RP impella present through right IJ with good PA placement signals. PAPs on impella 30s/20s, Impella secured with 3 points of contact. good pulses, no edema noted. 7.5mm tube 22 @
lip on SIMV see worklist for vent settings. B/l breath sounds clear, diminished satting 100 percent. 2 mediastinal chest tubes to wall suction with serosang drainage, no air leak, tidaling or crepitus noted. BS hypoactve. boogie present draining
clear tea colored urine. Sternal inscision with glue CDI ASSISTANT WOMEN'S SOCCER COACH. L IJ cordis with SLIC, R radial A line, L femoral A line. all central lines zeroed, flushed. see worklist for drips and titrations.
[2024-11-08 19:46] LABS: ACT-LR - POC 268 Seconds (116-155)
--- NOTE | 2024-11-08 19:59 | ITS.CL.PN ---
[facility] - Procedure Note
Procedure
Procedure Note:
CARDIAC CATHETERIZATION REPORT
Date of Procedure: 11/08/2024
Referring: Dr. Salbador Osborne MD
Indication: Post cardiotomy RV failure
PROCEDURE: RP Impella placement
ACCESS: 11F right internal jugular vein (closure: left in place, mattress suture to secure sheath)
RP Impella Placement
Via an existing right internal jugular vein Paoli-Bayron catheter, an 0.025 wire was was placed in the distal right PA and exchanged via a 6 Malagasy Paoli-Bayron for an Amplatz extra-stiff wire. The existing sheath was removed and the access site reprepped
with prep sticks. After serial dilation the RP Impella introducer sheath was placed. Via the 6 Malagasy Paoli the Amplatz wire was exchanged for the Impella 0.027 wire in the distal right pulmonary artery. Over the wire, the Impella was placed and the
wire removed. Therapy was initiated. The introducer sheath was removed and purse string suture used to secure the inline [address]
RADIATION: dose 32 mGy; DAP 4.2 Gy*cm2; fluoroscopy time 10.7 min
CONCLUSION: Successful placement of an Impella RP flex via the right internal jugular vein
Signed: Errol Camejo MD, PhD
--- NOTE | 2024-11-08 21:00 | PTCARENOTE ---
CPAP trial initiated. Pt awake and following commands. CTPA notified of UO of 5. BP stable by A line and cuff.
[2024-11-08 21:07] LABS: Mixed Venous O2 Saturation 58.2 %
[2024-11-08 21:11] LABS: Hematocrit 35.7 % (37.0-47.0); Platelet Count 64 10^3/uL (130-400)
[2024-11-08 21:15] LABS: ACT-LR - POC 205 Seconds (116-155)
[2024-11-08 21:20] LABS: INR 1.42; LDH 709 U/L (120-246); Lactic Acid 3.7 mmol/L (0.7-2.0); PT 17.9 Sec (11.4-14.6)
[2024-11-08 21:21] LABS: Fibrinogen 191 MG/DL (199-459)
[2024-11-08 21:23] LABS: APTT 141.9 Sec (23.4-35.0)
[2024-11-08 21:49] LABS: HCO3 16.4 mmol/L (21-28); Ionized Calcium 1.06 mMOL/L (1.15-1.33); O2 Saturation % 97.6 % (94-98); PCO2 23 mmHg (32-35); PO2 151 mmHg (83-108); Potassium 3.3 mMOL/L (3.5-5.1); pH 7.46 (7.35-7.45)
[2024-11-08 22:01] LABS: Glucose - Point of Care 65 mg/dl (70-99)
[2024-11-08 22:03] LABS: ACT-LR - POC 213 Seconds (116-155)
[2024-11-08] MEDS: DEXTROSE 50% SYRINGE 12.5 GRAMS IV (22:03)
[2024-11-08] MEDS: OSCAL CAL 500 PO (22:11)
[2024-11-08] MEDS: SENOKOT-S PO (22:12)
[2024-11-08 22:26] LABS: Glucose - Point of Care 253 mg/dl (70-99)
[2024-11-08 22:35] LABS: O2 Saturation % 99.8 % (94-98); PCO2 42 mmHg (32-35); PO2 192 mmHg (83-108)
--- NOTE | 2024-11-08 23:00 | RESPNOTE ---
PT was extubated at this time and placed on a 6L n/c and tolerated well. I/S performed with a total of 1,000 x 4, vent was pulled and cleaned.
[2024-11-08 23:06] LABS: Glucose - Point of Care 144 mg/dl (70-99)
[2024-11-08 23:14] LABS: ACT-LR - POC 184 Seconds (116-155)
--- NOTE | 2024-11-08 23:18 | PTCARENOTE ---
cpap 2149 - ctpa says gas good- extubated 2300 to 6L NC. able to state name and
[2024-11-08] MEDS: ZOFRAN 4 MG IV (23:36)
[2024-11-09] VITALS (26 sets, daily range): BP systolic 96–150; BP diastolic 44–128; BMI 23.2
[2024-11-09] MEDS: OFIRMEV 100 IV (00:12)
[2024-11-09 00:19] LABS: Glucose - Point of Care 131 mg/dl (70-99)
[2024-11-09 00:28] LABS: Lactic Acid 2.6 mmol/L (0.7-2.0)
[2024-11-09 00:37] LABS: LDH 557 U/L (120-246)
[2024-11-09] MEDS: HEPARIN 25000 UNITS/250 ML IV (00:41)
--- NOTE | 2024-11-09 00:46 | PTCARENOTE ---
heparin started at 500 units/hr
[2024-11-09 01:06] LABS: Glucose - Point of Care 100 mg/dl (70-99)
[2024-11-09 02:07] LABS: Glucose - Point of Care 110 mg/dl (70-99)
[2024-11-09] MEDS: ANCEF 5 IV ×2 (03:00→10:07)
[2024-11-09 03:08] LABS: Glucose - Point of Care 121 mg/dl (70-99)
[2024-11-09] MEDS: PACERONE PO (03:12)
[2024-11-09] MEDS: ALBUMIN 5% 250 IV (03:39)
[2024-11-09] MEDS: ROXICODONE 2.5 MG PO ×2 (04:13→16:59)
--- NOTE | 2024-11-09 05:00 | PTCARENOTE ---
labs drawn and sent, EKG done. Pt tolerating sips of water. Impella function good. BP more stable now maps between 70-80. 2.5 of doron given for pain. pt resting comfortably with call florence within reach .
[2024-11-09 05:02] LABS: Glucose - Point of Care 107 mg/dl (70-99)
[2024-11-09 05:09] LABS: HCO3 25.1 mmol/L (21-28); Ionized Calcium 1.32 mMOL/L (1.15-1.33); O2 Saturation % 97.5 % (94-98); PCO2 37 mmHg (32-35); PO2 159 mmHg (83-108); Potassium 5.1 mMOL/L (3.5-5.1); pH 7.44 (7.35-7.45)
[2024-11-09 05:10] LABS: O2 Therapy 6L
[2024-11-09 05:13] LABS: Mixed Venous O2 Saturation 69.9 %
[2024-11-09 05:25] LABS: Hematocrit 28.8 % (37.0-47.0); Hemoglobin 10.5 g/dL (12.0-16.0); Mean Corp Hgb Conc. 36.5 g/dL (33.0-37.0); Mean Corpuscular Hgb 31.5 pg (27.0-31.0); Mean Corpuscular Volume 86.5 fL (81.0-99.0); Mean Platelet Volume 9.8 fL (7.4-10.4); Platelet Count 56 10^3/uL (130-400); Red Blood Cell Count 3.33 10^6/uL (4.20-5.40); White Blood Cell Count 13.3 10^3/uL (4.8-10.8)
[2024-11-09 05:29] LABS: Fibrinogen 202 MG/DL (199-459)
[2024-11-09 05:31] LABS: D-Dimer 0.98 ug/mlFEU (0.00-0.50)
[2024-11-09 05:37] LABS: Lactic Acid 1.8 mmol/L (0.7-2.0)
[2024-11-09 06:19] LABS: LDH 476 U/L (120-246)
[2024-11-09 06:29] LABS: ALT (SGPT) 23 U/L (0-35); AST (SGOT) 117 U/L (14-36); Albumin 2.9 g/dl (3.5-5.0); Alkaline Phosphatase 27 U/L (38-126); Blood Urea Nitrogen 19 mg/dl (7-17); Calcium 8.7 mg/dl (8.4-10.2); Carbon Dioxide 23 mmol/L (22-30); Chloride 119 mmol/L (98-107); Estimated Creatinine Clearance 43 ml/min; Glucose 99 mg/dl (70-99); Magnesium 2.1 mg/dl (1.6-2.3); Potassium 4.6 mmol/L (3.5-5.1); Sodium 146 mmol/L (135-145); Total Bilirubin 3.3 mg/dl (0.2-1.3); Total Protein 4.3 g/dl (6.3-8.2); eGFR > 60.00
--- NOTE | 2024-11-09 06:38 | W.PN.CT ---
Today's Communication / Plan
-
-pod #1
-extubated uneventfully @ 11 pm. No significant issues overnight. Neuro and hemodynamically stable
-Impella @ P4 overnight
-mVO2 69.9. Drips: Dobut 5, Heparin decreased to 400 units/hr at 5:40 am (ptt was 121), Levo 0.5 on and off, Insulin
-CT output: 2 meds: 200/380
-gave 1 unit platelets this am for platelets 56K (no overt bleeding, some hemolysis). Tbili elevated 3.3, LDH 476
-holding BB while on Dobut
-Cr stable 0.7 - follow
-follow platelets and H&H
-encourage IS
Assessment / Plan
-
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
maze [combination of RF and cryoablation]; Left atrial appendage exclusion [45 mm clip] on 11/08/[address] Osborne, pod #1
- s/p Successful placement of an Impella RP flex via the right internal jugular vein on 11/08/[address] Camejo
- Intraop SARAI: LVEF preop was 55% with no significant regional wma. She does have a history of cardiomyopathy with mildly dilated right and left ventricles. Her left atrium and right atrium are also dilated. Following surgery EF did reduce to
+45% and she had some septal inferior wall hypokinesis with dyskinesia. The lateral wall was moving appropriately. Her right ventricle did appear to be mild to mild to moderately depressed after valve repair. At the conclusion of the case off
cardiopulmonary bypass there was no residual mitral valve insufficiency and no residual tricuspid valve insufficiency. The mean gradient across the mitral valve was 2 mmHg and the mean gradient across tricuspid valve was 1 mmHg. She did have
significant PACs conclusion of the case and required defibrillation x 2 likely secondary to air entrainment down the coronary. Follow-up transesophageal echocardiogram demonstrated that there was still residual air coming out of her pulmonary veins
and sitting in her left atrium.
- Degenerative mitral valve disease with severe insufficiency, type II pathology with some component of type I pathology
- Functional tricuspid valve insufficiency
- PVCs
- TIA
- Atrial fibrillation
- Osteoporosis
- Supraventricular tachycardia
- CHF, significant volume overload
- Acute postop blood loss anemia - s/p 1 pRBC on 11/08
- Acute postop thrombocytopenia - s/p 1 unit platelet on 11/09
- Acute postop hypovolemia with subsequent hypervolemia
- Acute postop atelectasis
Discussed patient care with: Nursing and Care Team
Subjective
-
Date of Service: November 09, 2024
Objective Data
-
Lab Results
11/09/24 04:59
11/09/24 04:59
PT 17.9 Sec (11.4-14.6) H 11/08/24 20:59
INR 1.42 11/08/24 20:59
APTT 121.0 Sec (23.4-35.0) H 11/09/24 04:59
Vital Signs
Vital Signs
Temp Pulse Resp BP Pulse Ox
98.3 F 93 21 99/71 98
11/09/24 06:00 11/09/24 06:10 11/09/24 06:10 11/09/24 06:00 11/09/24 06:10
CT Intake/Output/Weight
11/08/24 11/08/24 11/09/24
06:59 18:59 06:59
Intake Total 1254.3 / 1824.1 569.8 / 1824.1
Output Total 360 / 895 535 / 895
Balance 894.3 / 929.1 34.8 / 929.1
SaO2: 98
Physical Exam
-
General: Awake and AOx3
Cardiovascular: Irregular rate & rhythm, No Murmurs and Rub
Respiratory: Decreased Breath Sounds
Sternum: Stable
Incision: Clean, Dry and Intact
Extremities: No Edema
Abdomen: soft, nontender, nondistended, + decreased bowel sounds
Data Reviewed
-
Lab Results: Results Reviewed
Medications: Active Meds Reviewed
Chest X-Ray: Report Reviewed and Image Reviewed
ECG: Report Reviewed and Image Reviewed
--- NOTE | 2024-11-09 06:50 | CON.INTV ---
Consultation
Consultation Request
Date/Time Consultation Requested: 11/08/2024
Date/Time Consultation Performed: 11/09/2024
Requesting Provider: Salbador Osborne
Performing Provider: Mark Peralta
Reason for Consultation: Post MV and RV repair
Medical History
-
Chief Complaint: Shortness of breath
History of Present Illness:
Patient is a very pleasant 84-year-old female with known history of severe mitral regurgitation and tricuspid regurgitation with resultant heart failure with preserved ejection fraction and worsening dyspnea. She had a coronary angiogram performed
in September 2024 which was negative for any significant coronary artery disease. Patient subsequently was seen by CT surgery and was admitted for an elective mitral valve and tricuspid valve repair. She had the above procedure performed on 11/08/2024
along with right and left atrial maze procedure. At the separation from heart-lung machine, paradoxical septal wall motion was noted with brief episode of V-fib necessitating resuscitation suspected due to micro air emboli. SARAI showed significant
amount of residual air/gas in the left atrium along with moderate to severe right ventricular systolic dysfunction. Patient subsequently was brought to CVICU. She developed rising lactate level and cardiogenic shock and a 2D echo cardiogram showed
significantly worse RV function. Patient was taken to [facility] and had RP Impella placed for right ventricular support. Subsequently lactate has improved. Patient has been successfully extubated since and is doing well. Air Conditioning Unit Assembler consultation
was requested for further input.
PMH:
Severe Mitral valve regurgitation
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
PVCs
H/o TIA
Paroxysmal Atrial fibrillation
Osteoporosis
Supraventricular tachycardia
Heart failure with preserved ejection fraction
Past Medical History
Past Medical History: Other (see HPI)
Past Surgical History: Orthopedic (Right knee arthroscopy 2019), Tonsilectomy and Other (Cataract extraction)
Social History
Tobacco: Non-Smoker
Alcohol: None
Drug: None
Personal:
Living: Alone
Employment: Retired ([employer])
Family History
Family History: Other (Father from leukemia, mother from colon cancer, sibling has lung cancer)
Allergies / Home Medications
Allergies / Home Medications
Allergies
Allergy/AdvReac Type Severity Reaction Status Date / Time
No Known Allergies Allergy Verified 10/20/24 07:52
Home Medications
�Medication �Instructions �Recorded �Confirmed �Last Taken �Type
Lactobacillus acidophilus 10 10,000 mmu cells PO DAILY 10/05/24 11/08/24 10/31/24 History
billion cell capsule (Probiotic) Supplement 08
Magnesium Maleate 100 mg PO BID Supplement 10/05/24 11/08/24 11/07/24 08:00 History
[place] 3 [employer] Oil 1 tab PO DAILY Supplement 10/05/24 11/08/24 10/31/24 History
0800
apixaban 5 mg tablet (Eliquis) 5 mg PO BID Blood Clot 10/05/24 11/08/24 11/04/24 20:00 History
Prevention/Tx
ascorbic acid (vitamin C) 500 mg 500 mg PO DAILY Supplement 10/05/24 10/20/24 10/31/24 08:00 History
tablet (Vitamin C)
bumetanide 1 mg tablet 0.5 mg PO DAILY Fluid 10/05/24 11/08/24 11/06/24 08:30 History
Retention/Swelling
cholecalciferol (vitamin D3) 25 25 mcg PO DAILY Supplement 10/05/24 10/20/24 10/31/24 17:00 History
mcg (1,000 unit) capsule (Vitamin
D3)
coQ10 (ubiquinol) 100 mg capsule 100 mg PO DAILY Supplement 10/05/24 11/08/24 10/31/24 History
0800
metoprolol tartrate 50 mg tablet 50 mg PO BID Blood Pressure 10/05/24 11/08/24 11/07/24 17:00 History
multivitamin with minerals-folic 1 tab PO DAILY Supplement 10/05/24 10/20/24 10/31/24 08:00 History
acid 0.4 mg tablet
zinc 50 mg tablet 50 mg PO DAILY Supplement 10/05/24 11/08/24 10/31/24 17:00 History
sumatriptan succinate 25 mg tablet 25 mg PO ONCE migraine 10/17/24 11/08/24 10/09/24 History
calcium 500 mg tablet 1,000 mg PO BID Supplement 10/20/24 11/08/24 10/31/24 08:00 History
Review of Systems
-
Hematologic/Lymphatic: Other (All 14 systems reviewed and negative except as stated above in the history of present illness.)
Vitals / Labs / Diagnostic Testing
Vital Signs
Temp Pulse Resp BP Pulse Ox
98.3 F 93 21 99/71 98
11/09/24 06:00 11/09/24 06:10 11/09/24 06:10 11/09/24 06:00 11/09/24 06:39
Lab Data
11/09/24 04:59
11/09/24 04:59
Laboratory Results
11/08/24 11/08/24 11/08/24
12:50 14:39 17:37
PT 18.5 H 19.0 H
INR 1.48 1.54
APTT 30.8
pH 7.39 7.38 7.37
pCO2 34 30 L 30 L
pO2 160 H 150 H 171 H
HCO3 20.6 L 17.7 L 17.3 L
O2 Delivery Level
11/08/24 11/08/24 11/08/24
20:59 21:41 22:28
PT 17.9 H
INR 1.42
APTT 141.9 H
pH 7.46 H 7.40
pCO2 23 L 42 H
pO2 151 H 192 H
HCO3 16.4 L 26.0
O2 Delivery Level
11/09/24 11/09/24
00:00 04:59
PT
INR
APTT 49.0 H 121.0 H
pH 7.44
pCO2 37 H
pO2 159 H
HCO3 25.1
O2 Delivery Level 6l
Diagnostic Testing:
Physical Exam
-
HEENT: Normocephalic
Cardiovascular: S1/S2
Respiratory: Clear and Non-Labored Respirations
GI: Soft and Non Distended
Neurology: Awake, Alert and Oriented
Skin: Warm
General: Comfortable
Assessment
-
S/p left and right atrial maze procedure, left atrial appendage exclusion, radical mitral valve repair, tricuspid valve repair POD #1
11/08/2024, Acute RV dysfunction, S/p RP Impella (pRVAD), Day #1
Titrate off pressors per protocol, Impella @ 2L, Dobutamine @5
ECHO reviewed, 11/08, severely reduced RV systolic function. Normal LVEF
Management of chest tubes per primary service
Extubated, currently on O2 at 2L, saturating 99%. Work of breathing normal
ABG(s) reviewed 7.44, 37, 159
CXR with no obvious opacities/infiltrates
No prior history of pulmonary disease
Can add nebulizers if needed
Aspiration precautions
Encouraged incentive spirometry, OOB/ambulation/early mobility
Advance diet as tolerated following extubation
GI prophylaxis: Pantoprazole
Monitor critical I/O's
Zee/chest tube output
Hb down to 19.5, Platelet count 56K from 100K yesterday. Fibrinogen normal @202.
LDH 709 > 557 > 476 most recently
Trend CBC for now
has been on Heparin infusion with Impella in place
Insulin protocol initiated and ongoing
Transition to SQ/off as indicated per team
#1. Severe symptomatic Mitral valve regurgitation, moderate to severe TR. s/p MV and TV repair (11/08/2024)
#2. RV dysfunction and cardiogenic shock. s/p RP Impella placed (11/08/2024), Dobutamine
#3. HFpEF, due to MR and TR. CXR without pulmonary edema today
#4. Paroxysmal A Fib. on Heparin currently.
#5. H/o TIA. On Heparin
#6. Thrombocytopenia. Fibrinogen normal, D-dimer elevated. LDH has been trending down. Has been on heparin with RP Impella in place. Defer management to cardiology service.
Critical Care time 65 mins -- The patient is admitted for acute critical illness for the treatment of vital organ failure and/or prevention of further life-threatening conditions. Total care includes time spent in review of history, physical exam,
medications, hemodynamic/ventilator parameters, laboratory data, imaging and discussion with house staff, pharmacy, respiratory therapy, nitroglycerin supervisor, and nursing.
Data:
ECHO 10/2024: Normal left ventricular size, wall thickness and systolic function. No regional
wall motion abnormalities are seen. LV ejection fraction is 50-55% by visual
assessment.
Severely reduced right ventricular systolic function. Right ventricle is top
normal in size.
Mitral valve repair with peak/mean gradients across the mitral valve of 6/3
mmHg, respectively. No mitral regurgitation is seen.
Tricuspid valve repair with a mean gradient of 1 mmHg. Trace tricuspid
regurgitation.
Normal pericardium without effusion.
Compared to transesophageal echo dated 10/20/2024: mitral and tricuspid valves
have been repaired; right ventricular systolic function is severely reduced and
was previously normal.
CT Chest/Abd/Pelvis: 10/2024: 1. No aortic aneurysm or dissection.
2. Mild coronary artery calcifications. Minimal atherosclerotic calcifications.
3. Trace right pleural effusion.
Cardiac Cath 09/2024: 1: Normal coronary arteries.
2: Severe mitral regurgitation with preserved LV systolic function.
[2024-11-09 07:19] LABS: Glucose - Point of Care 100 mg/dl (70-99)
--- NOTE | 2024-11-09 07:30 | PTCARENOTE ---
Assumed care of patient from director case management RN. AAO x 3 , tearful and anxious but appropriate. Afib with junctional rhythm on monitor. Lt femoral arterial and Rt radial Arterial lines transducing. RT RP Impella at P4. AV wires intact and insulated
at present. 2 L NC 99%. Chest tubes x 2 to - 20 cm suction. No air leak or crepitus noted. Abdomen soft and non tender. Zee draining clear lino urine. Surgical sites well approximated. Pulses palpable. Plan for day discussed.
[2024-11-09] MEDS: BUMEX 0.5 MG IV (08:25)
[2024-11-09] MEDS: LIDOCAINE 4% PATCH 1 PATCH TOPICAL (08:26)
[2024-11-09] MEDS: OSCAL CAL 500 PO (08:26)
[2024-11-09] MEDS: TYLENOL 1000 MG PO ×3 (08:26→21:58)
[2024-11-09] MEDS: SENOKOT-S 1 TABLET PO ×2 (08:26→20:17)
[2024-11-09] MEDS: LOW STRENGTH ASPIRIN PO (08:26)
[2024-11-09] MEDS: MAGNESIUM OXIDE PO (08:26)
[2024-11-09] MEDS: PROTONIX 40 MG PO (08:26)
[2024-11-09] MEDS: NEURONTIN 100 MG PO ×3 (08:26→21:59)
[2024-11-09] MEDS: VITAMIN D3 (cholecalciferol) PO (08:27)
[2024-11-09] MEDS: LOPRESSOR PO (08:27)
[2024-11-09] MEDS: THERAGRAN PO (08:27)
[2024-11-09] MEDS: VITAMIN C PO (08:27)
[2024-11-09] MEDS: ZINC PO (08:27)
[2024-11-09] MEDS: BACTROBAN 2% OINTMENT 1 APPLIC NASAL ×2 (08:27→21:04)
[2024-11-09 09:13] LABS: Glucose - Point of Care 90 mg/dl (70-99)
--- NOTE | 2024-11-09 10:13 | W.PN.ANS.POP ---
Anesthesia Post Operative
- Anesthesia Post Op Note
Vital Signs Stable-See Nursing Note: Yes
Airway Patent: Yes
Adequate Pain Control: Yes
Change in Mental Status: No
Current Postoperative Nausea & Vomiting: No
Anesthesia Complications: No
General Anesthetic Recall: No
Unplanned Admission: No
Post Op Hydration Adequate: Yes
[2024-11-09 11:03] LABS: Glucose - Point of Care 103 mg/dl (70-99)
[2024-11-09 12:32] LABS: APTT 56.7 Sec (23.4-35.0)
[2024-11-09 12:33] LABS: Lactic Acid 1.1 mmol/L (0.7-2.0)
[2024-11-09] MEDS: NSS IV (12:42)
[2024-11-09 12:51] LABS: LDH 476 U/L (120-246)
--- NOTE | 2024-11-09 14:00 | PTCARENOTE ---
Assist x 2 oob to chair. Tolerated w/o dumping from chest tubes . Remains Afib /junctional. 2 L NC. VSS Assessment otherwise unchanged from prior.
--- NOTE | 2024-11-09 14:27 | W.PN.CARDCBS ---
Addendum entered and electronically signed by Lucie Aden MD 11/09/24 15:42:
I saw and examined the patient.
The Medicare Sales Executive's note was reviewed and I agree with the note.
Comment: Patient currently sitting in the chair and family is at the bedside. She is feels fatigued. Her pain is controlled. She is status post mitral valve repair for severe mitral regurgitation and status post tricuspid valve repair. In
addition she is status post left and right atrial maze with left atrial appendage clip, 11/08/2024. There was concern for micro air emboli with episode of VF requiring resuscitation. Postop transesophageal echo revealed moderate to severe RV
dysfunction with depressed cardiac index. Given changes and worsening clinical status patient underwent RP Impella via right IJ 11/08/2024. Currently on dobutamine. Making good urine.
- Continue to wean Impella as tolerates
- Agree with slow diuresis in the setting of right ventricular dysfunction with caution not to overdiurese. Receiving dobutamine for support.
- Follow labs
- EKG reviewed by me with atrial fibrillation. Known PAF. Currently receiving heparin. Eventual oral anticoagulation.
- Telemetry reviewed.
Discussed with nursing. Discussed with family at the bedside.
Original Note:
Today's Communication / Plan
-
RP Impella running at P4
Afib on tele
Impression / Plan
-
PCP: Dayana Dotson
[facility] Associate: Quinten Pepper
Impression:
Severe Mitral valve regurgitation
s/p mitral valve repair with 34 mm band annuloplasty band 11/08/2024
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
s/p tricuspid repair with 30 mm band annuloplasty band
Paroxysmal atrial fibrillation
s/p left right and left atrial maze (combination of cryo and RF ablation) 11/08/2024
Left atrial appendage clip 45 mm device 11/08/2024, Dr. Osborne
PVCs
h/o TIA
Paroxysmal Atrial fibrillation
Osteoporosis
Supraventricular tachycardia
Heart failure with preserved ejection fraction
Hypernatremia
Cardiac catheterization 10/05/2024: LM: Patent. LAD: Patent. Left circumflex: Patent. RCA: Patent. HEMODYNAMIC FINDINGS (mmHg): LV(s/d,EDP): 115/12, 17; Ao(s/d,m): 115/67, 90. LVG EF 65%, +4 MR
Echo 09/12/2024: EF 50 to 55%. No regional wall motion abnormalities. Mild concentric LVH. Normal RV size and function. Severely dilated left atrium with volume index 57.0 mL/m2. Severe mitral regurgitation with moderate mitral annular
calcification. Moderate tricuspid regurgitation. RVSP 33.3 mmHg.
Intra-op SARAI 11/08/2024: Severe MR with prolapse of P2 with flail segment. Mild to moderate TR. By atrial enlargement. Post operative SARAI status post MV repair with annuloplasty band no paravalvular leak and leaflets functioning appropriately.
Mean gradient 2. Status post TR repair with 30 mm annuloplasty band with residual trace TR, mean gradient 1 mmHg. EF 45%. Status post left atrial appendage exclusion clip well-seated no flow seen into the left atrial appendage. Significant amount
of residual gas/air in left atrium. Moderate to severe RV systolic dysfunction.
Echo 11/08/24: EF 50-55%, RV top normal size, s/p MV repair with peak/mean gradients across the mitral valve of 6/3 mmHg, respectively, no MR, s/p TV repair with a mean gradient of 1 mmHg, trace TR, normal pericardium without effusion.
Plan:
-CTS team notes reviewed for the last 24 hours. Micro air emboli with episode of VF requiring resuscitation, postop SARAI showed significant amount of residual air/gas in left atrium and moderate to severe RV ventricular systolic dysfunction, CI 1.7
and SVR greater than 2000, echo as noted above, rising lactate level and so patient had RP Impella via RIJ placed 11/08/24. Patient given albumin x2 bags and Plt x1.
-RP Impella remains at P4
-Extubated, awake and tearful at times
-ECG reviewed by me is Afib on 11/09/24. Patient with known paroxysmal Afib and had left and right atrial maze (combination of cryo and RF ablation) on 11/08/24
-Outpatient dose of Eliquis has been held since prior to admission. Patient had NENA exclusion 45 mm device 11/08/24
HPI 11/08/2024:
Patient is a 84-year-old female with severe symptomatic mitral valve regurgitation, moderate to severe tricuspid regurgitation, heart failure with preserved ejection fraction, paroxysmal atrial fibrillation on chronic anticoagulation with Eliquis,
history of TIA and migraine headache. Patient developed symptomatic mixed valvular disease and worsening heart failure symptoms requiring diuretic therapy. She underwent cardiac catheterization September 2024 which demonstrated no significant coronary
artery disease. She now presents for elective valve repair of mitral and tricuspid valves as well as maze and left atrial appendage clipping. Cardiology being asked to see patient postoperatively.
Progress Note - Seo Associate
Subjective
Date of Service: November 09, 2024
She is tired, she feels like she is losing track of time
Objective
Labs:
11/09/24 04:59
11/09/24 04:59
Labs
Hgb 10.5 g/dL (12.0-16.0) L 11/09/24 04:59
Hct 28.8 % (37.0-47.0) L 11/09/24 04:59
Plt Count 56 10^3/uL (130-400) L 11/09/24 04:59
PT 17.9 Sec (11.4-14.6) H 11/08/24 20:59
INR 1.42 11/08/24 20:59
APTT 56.7 Sec (23.4-35.0) H 11/09/24 12:10
Sodium 146 mmol/L (135-145) H 11/09/24 04:59
Potassium 4.6 mmol/L (3.5-5.1) 11/09/24 04:59
BUN 19 mg/dl (7-17) H 11/09/24 04:59
Creatinine 0.7 mg/dL (0.6-1.0) 11/09/24 04:59
Glucose 99 mg/dl (70-99) 11/09/24 04:59
Vital Signs and I&O:
Vital Signs
Temp Pulse Resp BP Pulse Ox
98.9 F 111 20 101/49 99
11/09/24 13:57 11/09/24 13:57 11/09/24 13:57 11/09/24 13:00 11/09/24 13:57
Vital Signs
Temp Pulse Resp BP Pulse Ox
98.9 F 111 20 101/49 99
11/09/24 13:57 11/09/24 13:57 11/09/24 13:57 11/09/24 13:00 11/09/24 13:57
Intake & Output
11/07/24 11/08/24 11/09/24 11/10/24
06:59 06:59 06:59 06:59
Intake Total 1824.1 / 1862.6 1109.3 / 1109.3
Output Total 895 / 925 1145 / 1145
Balance 929.1 / 937.6 -35.7 / -35.7
Physical Exam
Physical Exam
GEN: NAD. AAOx3
HEENT: RP Impella via RIJ. EOMI, MMM
LUNGS: RA. No audible wheeze
CV: Afib on tele.
ABD: ND
EXT: No edema B/L
NEURO: Gross non-focal
SKIN: No rash
--- NOTE | 2024-11-09 14:52 | CM ---
Reviewed chart. Met with Mrs. Antunez to review discharge plans. She states she is feeling okay. She states prior to admission she resides alone on a one story home with two steps to enter. She states prior to admission she was independent with
ambulation and adls. She states she does not have any DME in the home. She states she has a prescription plan and uses [email or web address]. Will need to see her current functional level to see if she will have any skilled care needs. Medical
work-up in progress. The discharge plan is to return home with a home visit by the Transitional Care Nurse when medically stable.
[2024-11-09] MEDS: FERRLECIT 110 MG IV (14:59)
[2024-11-09] MEDS: DOBUTREX 500 MG 250 IV (14:59)
[2024-11-09] MEDS: FLEXBUMIN 50 IV (18:41)
[2024-11-09 19:51] LABS: Hematocrit 25.8 % (37.0-47.0); Hemoglobin 9.3 g/dL (12.0-16.0); Mean Corpuscular Hgb 31.6 pg (27.0-31.0); Mean Corpuscular Volume 87.8 fL (81.0-99.0); Mean Platelet Volume 11.4 fL (7.4-10.4); Platelet Count 61 10^3/uL (130-400); Red Blood Cell Count 2.94 10^6/uL (4.20-5.40); Red Cell Dist. Width 14.6 % (11.5-14.5); White Blood Cell Count 18.4 10^3/uL (4.8-10.8)
[2024-11-09 19:52] LABS: Lactic Acid 3.5 mmol/L (0.7-2.0)
[2024-11-09 20:04] LABS: Carbon Dioxide 25 mmol/L (22-30); Estimated Creatinine Clearance 38 ml/min; eGFR > 60.00
[2024-11-09 20:07] LABS: APTT 183.4 Sec (23.4-35.0)
[2024-11-09 20:07] LABS: Mixed Venous O2 Saturation 62.3 %
[2024-11-09 20:12] LABS: LDH 417 U/L (120-246)
[2024-11-09 20:16] LABS: Blood Urea Nitrogen 18 mg/dl (7-17); Calcium 8.3 mg/dl (8.4-10.2); Chloride 110 mmol/L (98-107); Glucose 219 mg/dl (70-99); Potassium 3.7 mmol/L (3.5-5.1); Sodium 138 mmol/L (135-145)
[2024-11-09] MEDS: OSCAL CAL 500 1000 MG PO (20:17)
[2024-11-09] MEDS: MAGNESIUM OXIDE 500 MG PO (20:17)
[2024-11-09] MEDS: LEVOPHED 250 IV (20:18)
[2024-11-09] MEDS: LR 1000 IV (21:56)
--- NOTE | 2024-11-09 22:55 | PTCARENOTE ---
Assumed care of patient at 1900. Patient alert and oriented, follows commands. Pulses present. 2 L NC, stomach soft non tender, Moves all extremities. Patient on Dobutamine @ 4,0 Heparin at 4.0, Levophed started @1.0 LR @100/HR. Afib with
junctional rythm on monitor. Right RP Impella @ P4, Right Radial Art line, Left Cordis, AV wires intact, CT X 2 on -20cc suction, no leak, no creptis, Zee has clear urine output. Pain controlled.
[2024-11-10] VITALS (31 sets, daily range): BP systolic 95–135; BP diastolic 40–84; PULSE 129; O2SAT 100; BMI 24.5
[2024-11-10] MEDS: KCL 100 IV (00:18)
[2024-11-10 00:38] LABS: Lactic Acid 1.6 mmol/L (0.7-2.0)
[2024-11-10 00:39] LABS: APTT 93.6 Sec (23.4-35.0)
[2024-11-10 00:43] LABS: LDH 453 U/L (120-246)
[2024-11-10] MEDS: CORDARONE 103 MG IV (00:44)
--- NOTE | 2024-11-10 01:06 | PTCARENOTE ---
patient resting, K+ replaced 40meq, Aminodrone bolus given, LR start @ 100/hr. boogie putting clear lino urine.
[2024-11-10] MEDS: FLEXBUMIN 50 IV ×2 (02:35→10:54)
[2024-11-10 03:15] LABS: Mixed Venous O2 Saturation 64.9 %
[2024-11-10 03:26] LABS: Glucose - Point of Care 171 mg/dl (70-99)
[2024-11-10 03:34] LABS: Lactic Acid 1.6 mmol/L (0.7-2.0)
--- NOTE | 2024-11-10 03:36 | W.PN.CT ---
Today's Communication / Plan
-
-pod #2
-no significant issues overnight
-remains in a-fib with RVR 120s-130s- gave Amio bolus for better rate control. Holding BB while on Dobut
-Impella @ P4
-mvO2 64.9. Drips: Dobut 4, Levo 1, Heparin 425 u/hr, 1L LR @ 100/hr
-CT output: 2 meds 125/405 in 12/24 hrs
-PTT 78.9 this am - increased Heparin from 400 to 425 u/hr
-got 1 unit platelets on 11/09 for plat 56K - platelets today 59K. No overt signs of bleeding
-was started on 25% Albumin x3 on 11/09
-diuresed gently on 11/09 (UO 1015).
-Low UO overnight 10-25 cc/hr- follow
-Cr stable 0.8 - follow
-follow platelets and H&H
-encourage IS, OOB
Assessment / Plan
-
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
maze [combination of RF and cryoablation]; Left atrial appendage exclusion [45 mm clip] on 11/08/[address] Osborne, pod #2
- s/p Successful placement of an Impella RP flex via the right internal jugular vein on 11/08/[address] Camejo
- Intraop SARAI: LVEF preop was 55% with no significant regional wma. She does have a history of cardiomyopathy with mildly dilated right and left ventricles. Her left atrium and right atrium are also dilated. Following surgery EF did reduce to
+45% and she had some septal inferior wall hypokinesis with dyskinesia. The lateral wall was moving appropriately. Her right ventricle did appear to be mild to mild to moderately depressed after valve repair. At the conclusion of the case off
cardiopulmonary bypass there was no residual mitral valve insufficiency and no residual tricuspid valve insufficiency. The mean gradient across the mitral valve was 2 mmHg and the mean gradient across tricuspid valve was 1 mmHg. She did have
significant PACs conclusion of the case and required defibrillation x 2 likely secondary to air entrainment down the coronary. Follow-up transesophageal echocardiogram demonstrated that there was still residual air coming out of her pulmonary veins
and sitting in her left atrium.
- Degenerative mitral valve disease with severe insufficiency, type II pathology with some component of type I pathology
- Functional tricuspid valve insufficiency
- PVCs
- TIA
- Atrial fibrillation
- Osteoporosis
- Supraventricular tachycardia
- CHF, significant volume overload
- Acute postop blood loss anemia - s/p 1 pRBC on 11/08
- Acute postop thrombocytopenia - s/p 1 unit platelet on 11/09
- Acute postop hypovolemia with subsequent hypervolemia
- Acute postop atelectasis
Discussed patient care with: Nursing and Care Team
Subjective
-
Date of Service: November 10, 2024
Objective Data
-
PT 17.9 Sec (11.4-14.6) H 11/08/24 20:59
INR 1.42 11/08/24 20:59
APTT 93.6 Sec (23.4-35.0) H 11/10/24 00:08
Vital Signs
Vital Signs
Temp Pulse Resp BP Pulse Ox
98.5 F 119 16 118/65 100
11/10/24 02:00 11/10/24 02:05 11/10/24 02:05 11/10/24 02:00 11/10/24 02:05
CT Intake/Output/Weight
11/09/24 11/09/24 11/10/24
06:59 18:59 06:59
Intake Total 569.8 / 1862.6 1419.3 / 2509.0 1089.7 / 2509.0
Output Total 535 / 925 1295 / 1570 275 / 1570
Balance 34.8 / 937.6 124.3 / 939.0 814.7 / 939.0
SaO2: 100
Physical Exam
-
General: Awake and AOx3
Cardiovascular: Irregular rate & rhythm, No Murmurs and Rub
Respiratory: Decreased Breath Sounds
Sternum: Stable
Incision: Clean, Dry and Intact
Extremities: No Edema
Abdomen: soft, nontender, nondistended, +decreased bowel sounds
Data Reviewed
-
Lab Results: Results Reviewed
Medications: Active Meds Reviewed
Chest X-Ray: Report Reviewed and Image Reviewed
ECG: Report Reviewed and Image Reviewed
[2024-11-10 03:43] LABS: Fibrinogen 283 MG/DL (199-459)
[2024-11-10 03:44] LABS: APTT 78.9 Sec (23.4-35.0)
[2024-11-10 03:45] LABS: D-Dimer 0.28 ug/mlFEU (0.00-0.50)
[2024-11-10 03:49] LABS: Hemoglobin 9.1 g/dL (12.0-16.0); Mean Corpuscular Hgb 31.2 pg (27.0-31.0); Mean Platelet Volume 11.4 fL (7.4-10.4); Platelet Count 59 10^3/uL (130-400); Red Blood Cell Count 2.92 10^6/uL (4.20-5.40); Red Cell Dist. Width 14.7 % (11.5-14.5); White Blood Cell Count 18.4 10^3/uL (4.8-10.8)
[2024-11-10 03:52] LABS: ALT (SGPT) 17 U/L (0-35); AST (SGOT) 72 U/L (14-36); Albumin 3.1 g/dl (3.5-5.0); Alkaline Phosphatase 37 U/L (38-126); Blood Urea Nitrogen 20 mg/dl (7-17); Calcium 8.6 mg/dl (8.4-10.2); Carbon Dioxide 28 mmol/L (22-30); Chloride 109 mmol/L (98-107); Estimated Creatinine Clearance 38 ml/min; Glucose 159 mg/dl (70-99); LDH 445 U/L (120-246); Sodium 137 mmol/L (135-145); Total Bilirubin 2.5 mg/dl (0.2-1.3); Total Protein 4.7 g/dl (6.3-8.2); eGFR > 60.00
--- NOTE | 2024-11-10 04:09 | PTCARENOTE ---
Patient bathed CHG bath, CT Dressing changed, labs drawn, Heparin rate change to 425, VSS,
[2024-11-10] MEDS: NEURONTIN 100 MG PO ×4 (04:40→22:23)
[2024-11-10] MEDS: TYLENOL 1000 MG PO ×3 (06:02→22:24)
--- NOTE | 2024-11-10 08:00 | PTCARENOTE ---
Addendum entered by Monalisa Guerrero RN 11/10/24 11:50:
A&V wires insulated.
Original Note:
pt received from previous RN, oriented, drowsy. follows commands, SALCEDO. A-fib on the monitor, irregular apical pulse. HR 110-130s. SBP 130-140s. Dobutamine gtt running as ordered. CVP ~10. palpable pulses, trace generalized edema. RIJ RP Flex Impella
in place, P-4. pt on 2LNC, 97-100% POX. lungs diminished. IS 500ml. CTx2, no air leak or crepitus noted. pt abdomen s/n, denies n/v. poor appetite. +BS, +flatus. Zee in place, MANAGER PRIMARY CARE aware of UO. sternal incision AIR COMMODORE, approximated. chest tube site
intact. LIJ cordis maintained. PIV. heparin gtt running as ordered. R radial Teressa flushed, zeroed, and calibrated. see worklist for VS, I&O, and assessment.
--- NOTE | 2024-11-10 08:19 | W.PN.INTV ---
Today's Communication / Plan
Recommendations
- Monitor platelet count closely
- Defer management of A-fib with RVR to cardiology/CT surgery service
- Wean dobutamine as tolerated
Assessment
-
Patient is a very pleasant 84-year-old female with known history of severe mitral regurgitation and tricuspid regurgitation with resultant heart failure with preserved ejection fraction and worsening dyspnea. She had a coronary angiogram performed
in September 2024 which was negative for any significant coronary artery disease. Patient subsequently was seen by CT surgery and was admitted for an elective mitral valve and tricuspid valve repair. She had the above procedure performed on 11/08/2024
along with right and left atrial maze procedure. At the separation from heart-lung machine, paradoxical septal wall motion was noted with brief episode of V-fib necessitating resuscitation suspected due to micro air emboli. SARAI showed significant
amount of residual air/gas in the left atrium along with moderate to severe right ventricular systolic dysfunction. Patient subsequently was brought to CVICU. She developed rising lactate level and cardiogenic shock and a 2D echo cardiogram showed
significantly worse RV function. Patient was taken to [facility] and had RP Impella placed for right ventricular support. Subsequently lactate has improved. Patient has been successfully extubated since and is doing well. Scratcher Tender consultation
was requested for further input.
S/p left and right atrial maze procedure, left atrial appendage exclusion, radical mitral valve repair, tricuspid valve repair POD #2
11/08/2024, Post-op, Acute RV dysfunction, S/p RP Impella (pRVAD), Day #2
Titrate off pressors per protocol, Impella @ 2L, Dobutamine @4, Heparin infusion
MAP 77, CVP 11. Noted to be in A fib with RVR 136/min
ECHO reviewed, 11/08, severely reduced RV systolic function. Normal LVEF
Management of chest tubes per primary service
Extubated, currently on O2 at 2L, saturating 99%. Work of breathing normal
CXR with no obvious opacities/infiltrates, ?trace pleural effusions.
No prior history of pulmonary disease
Can add nebulizers if needed
Aspiration precautions
Encouraged incentive spirometry, OOB/ambulation/early mobility
Advance diet as tolerated following extubation
GI prophylaxis: Pantoprazole
Monitor critical I/O's
Zee/chest tube output
Hb down to 9.1, Platelet count 59K from 56K yesterday. Fibrinogen normal @283
LDH 709 > 557 > 476 > 445
Trend CBC for now
has been on Heparin infusion with Impella in place
Insulin protocol initiated and ongoing
Transition to SQ/off as indicated per team
#1. Severe symptomatic Mitral valve regurgitation, moderate to severe TR. s/p MV and TV repair (11/08/2024)
#2. Post-op Acute RV dysfunction and cardiogenic shock. s/p RP Impella placed (11/08/2024), Dobutamine
#3. HFpEF, due to MR and TR. CXR without pulmonary edema today. s/p Albumin IV.
#4. Paroxysmal A Fib with RVR. on Heparin currently. s/p Amiodarone push overnight. Metoprolol and oral Amiodarone have been on hold.
#5. H/o TIA. On Heparin
#6. Thrombocytopenia. Fibrinogen normal, D-dimer elevated. LDH has been trending down. Has been on heparin with RP Impella in place. Defer management to cardiology service. s/p platelet transfusion 11/09
Critical Care time 48 mins -- The patient is admitted for acute critical illness for the treatment of vital organ failure and/or prevention of further life-threatening conditions. Total care includes time spent in review of history, physical exam,
medications, hemodynamic/ventilator parameters, laboratory data, imaging and discussion with house staff, pharmacy, respiratory therapy, optical coating technician, and nursing.
Data:
ECHO 10/2024: Normal left ventricular size, wall thickness and systolic function. No regional
wall motion abnormalities are seen. LV ejection fraction is 50-55% by visual
assessment.
Severely reduced right ventricular systolic function. Right ventricle is top
normal in size.
Mitral valve repair with peak/mean gradients across the mitral valve of 6/3
mmHg, respectively. No mitral regurgitation is seen.
Tricuspid valve repair with a mean gradient of 1 mmHg. Trace tricuspid
regurgitation.
Normal pericardium without effusion.
Compared to transesophageal echo dated 10/20/2024: mitral and tricuspid valves
have been repaired; right ventricular systolic function is severely reduced and
was previously normal.
CT Chest/Abd/Pelvis: 10/2024: 1. No aortic aneurysm or dissection.
2. Mild coronary artery calcifications. Minimal atherosclerotic calcifications.
3. Trace right pleural effusion.
Cardiac Cath 09/2024: 1: Normal coronary arteries.
2: Severe mitral regurgitation with preserved LV systolic function.
Subjective Dataa
Subjective Data
Date of Service:
Date of Service: November 10, 2024
Subjective:
Patient appears more comfortable. Not in any acute distress.
Review of Systems
Genitourinary: Other (No new symptoms reported.)
Objective Data
Data Reviewed
Vital Signs / I&O / Oxygen:
Vital Signs
Temp Pulse Resp BP Pulse Ox
99.0 F 125 22 132/76 97
11/10/24 06:56 11/10/24 07:25 11/10/24 07:25 11/10/24 07:00 11/10/24 07:25
Intake and Output
11/09/24 11/10/24 11/11/24
06:59 06:59 06:59
Intake Total 1824.1 / 1862.6 3216.3 / 3216.3
Output Total 895 / 925 1705 / 1705
Balance 929.1 / 937.6 1511.3 / 1511.3
SaO2 [SIMV] 100
SaO2 97
Nasal Cannula flow liters per 2
minute
Physical Exam
General: Comfortable
HEENT: Normocephalic
Cardiovascular: S1-S2
Respiratory: Clear and Non-Labored Respirations
GI: Soft
Skin: Warm
Labs/Micro/Reports
Lab Data
11/10/24 03:05
11/10/24 03:05
Laboratory Results
11/09/24 11/09/24 11/10/24
12:10 19:30 00:08
APTT 56.7 H 183.4 H* 93.6 H
11/10/24
03:05
APTT 78.9 H
Microbiology
11/08/24 07:15 Urine Urine Culture - Final
NO GROWTH
[2024-11-10] MEDS: SODIUM BICARBONATE 1025 MEQ INF CATH (08:22)
[2024-11-10] MEDS: CORDARONE 518 MG IV (08:27)
[2024-11-10] MEDS: SENOKOT-S 1 TABLET PO ×2 (09:22→20:14)
[2024-11-10] MEDS: ZINC 50 MG PO (09:22)
[2024-11-10] MEDS: LIDOCAINE 4% PATCH 1 PATCH TOPICAL (09:23)
[2024-11-10] MEDS: MAGNESIUM OXIDE 500 MG PO ×2 (09:23→19:56)
[2024-11-10] MEDS: PROTONIX 40 MG PO (09:23)
[2024-11-10] MEDS: VITAMIN D3 (cholecalciferol) 25 MCG PO (09:23)
[2024-11-10] MEDS: THERAGRAN 1 TABLET PO (09:23)
[2024-11-10] MEDS: VITAMIN C 500 MG PO (09:23)
[2024-11-10] MEDS: BACTROBAN 2% OINTMENT 1 APPLIC NASAL ×2 (09:25→19:49)
[2024-11-10] MEDS: OSCAL CAL 500 1000 MG PO ×2 (09:29→19:56)
[2024-11-10] MEDS: NSS 500 IV (09:29)
[2024-11-10] MEDS: LR IV ×2 (10:30→18:42)
--- NOTE | 2024-11-10 11:00 | PTCARENOTE ---
Amiodarone gtt started as ordered. Ensure ordered for patient. pt OOB to chair w/ 2 person assist, tolerated. CAMPAIGN DEVELOPER aware of SBP and MAP w/ decreased Dobutamine, LR IVF restarted per CAMPAIGN DEVELOPER. labs sent.
[2024-11-10 11:15] LABS: Mixed Venous O2 Saturation 65.3 %
[2024-11-10 11:29] LABS: Lactic Acid 2.3 mmol/L (0.7-2.0)
[2024-11-10 11:33] LABS: APTT 75.6 Sec (23.4-35.0)
[2024-11-10 11:49] LABS: LDH 408 U/L (120-246)
[2024-11-10 12:08] LABS: ACT-LR - POC 163 Seconds (116-155)
--- NOTE | 2024-11-10 12:16 | W.PN.CARDCBS ---
Addendum entered and electronically signed by Gomez Kramer DO 11/10/24 17:39:
I saw and examined the patient.
The Special Delivery Mail Carrier's note was reviewed and I agree with the note.
Comment:
Plan:
Cont post op care
Possible Impella removal next 24 hrs
Wean IV Dobutamine as able
IV amiodarone for rate control for afib, off beta daniella while on Dobutamine.
Discussed with nursing.
Original Note:
Today's Communication / Plan
-
Continue post op care
For possible Impella removal in AM
Impression / Plan
-
PCP: Dayana Dotson
Public Health Administrator: Quinten Pepper
Impression:
Severe Mitral valve regurgitation
s/p mitral valve repair with 34 mm band annuloplasty band 11/08/2024
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
s/p tricuspid repair with 30 mm band annuloplasty band 11/08/2024
Paroxysmal atrial fibrillation
s/p right and left atrial maze (combination of cryo and RF ablation) 11/08/2024
Left atrial appendage clip 45 mm device 11/08/2024, Dr. Osborne
PVCs
h/o TIA
Paroxysmal Atrial fibrillation
Osteoporosis
Supraventricular tachycardia
Heart failure with preserved ejection fraction
Hypernatremia
Cardiac catheterization 10/05/2024: LM: Patent. LAD: Patent. Left circumflex: Patent. RCA: Patent. HEMODYNAMIC FINDINGS (mmHg): LV(s/d,EDP): 115/12, 17; Ao(s/d,m): 115/67, 90. LVG EF 65%, +4 MR
Echo 09/12/2024: EF 50 to 55%. No regional wall motion abnormalities. Mild concentric LVH. Normal RV size and function. Severely dilated left atrium with volume index 57.0 mL/m2. Severe mitral regurgitation with moderate mitral annular
calcification. Moderate tricuspid regurgitation. RVSP 33.3 mmHg.
Intra-op SARAI 11/08/2024: Severe MR with prolapse of P2 with flail segment. Mild to moderate TR. By atrial enlargement. Post operative SARAI status post MV repair with annuloplasty band no paravalvular leak and leaflets functioning appropriately.
Mean gradient 2. Status post TR repair with 30 mm annuloplasty band with residual trace TR, mean gradient 1 mmHg. EF 45%. Status post left atrial appendage exclusion clip well-seated no flow seen into the left atrial appendage. Significant amount
of residual gas/air in left atrium. Moderate to severe RV systolic dysfunction.
Echo 11/08/2024: EF 50-55%, RV top normal size, s/p MV repair with peak/mean gradients across the mitral valve of 6/3 mmHg, respectively, no MR, s/p TV repair with a mean gradient of 1 mmHg, trace TR, normal pericardium without effusion.
Plan:
-Underwent mitral valve repair, tricuspid valve repair, left and right atrial maze, and NENA clip 11/08/2024 w/ Dr. Osborne
-Intra-op there was concern for micro air emboli w/ episode of VF requiring resuscitation. Post-op SARAI showed significant amount of residual air/gas in L atrium w/ moderate to severe RV systolic dysfunction. CI 1.7 w/ SVR <2000, with rising lactate
level, so underwent RP Impella placement via RIJ.
-Impella remains in place. Per CT surgery, tolerated down to P2 this AM, so tentatively planning on removing device at bedside in AM 11/11.
-Feeling well overnight with no issues noted.
-BP stable.
-Remains in rapid afib on review of tele. Continues on IV amiodarone. BB on hold while on dobutamine
-Eliquis on hold since admission. s/p NENA exclusion 11/08.
-Hgb stable at 9.1
HPI 11/08/2024:
Patient is a 84-year-old female with severe symptomatic mitral valve regurgitation, moderate to severe tricuspid regurgitation, heart failure with preserved ejection fraction, paroxysmal atrial fibrillation on chronic anticoagulation with Eliquis,
history of TIA and migraine headache. Patient developed symptomatic mixed valvular disease and worsening heart failure symptoms requiring diuretic therapy. She underwent cardiac catheterization September 2024 which demonstrated no significant coronary
artery disease. She now presents for elective valve repair of mitral and tricuspid valves as well as maze and left atrial appendage clipping. Cardiology being asked to see patient postoperatively.
Progress Note - Public Health Administrator
Subjective
Date of Service: November 10, 2024
No current complaints. Feeling somewhat tired, but improved compared to yesterday.
Objective
Labs:
11/10/24 03:05
11/10/24 03:05
Labs
Hgb 9.1 g/dL (12.0-16.0) L 11/10/24 03:05
Hct 26.0 % (37.0-47.0) L 11/10/24 03:05
Plt Count 59 10^3/uL (130-400) L 11/10/24 03:05
PT 17.9 Sec (11.4-14.6) H 11/08/24 20:59
INR 1.42 11/08/24 20:59
APTT 75.6 Sec (23.4-35.0) H 11/10/24 11:03
Sodium 137 mmol/L (135-145) 11/10/24 03:05
Potassium 5.0 mmol/L (3.5-5.1) D 11/10/24 03:05
BUN 20 mg/dl (7-17) H 11/10/24 03:05
Creatinine 0.8 mg/dL (0.6-1.0) 11/10/24 03:05
Glucose 159 mg/dl (70-99) H 11/10/24 03:05
Vital Signs and I&O:
Vital Signs
Temp Pulse Resp BP Pulse Ox
99.4 F 111 17 113/54 98
11/10/24 12:00 11/10/24 12:10 11/10/24 12:10 11/10/24 12:00 11/10/24 12:10
Vital Signs
Temp Pulse Resp BP Pulse Ox
99.4 F 111 17 113/54 98
11/10/24 12:00 11/10/24 12:10 11/10/24 12:10 11/10/24 12:00 11/10/24 12:10
Intake & Output
11/08/24 11/09/24 11/10/24 11/11/24
06:59 06:59 06:59 06:59
Intake Total 1824.1 / 1862.6 3216.3 / 3216.3 482.0 / 482.0
Output Total 895 / 925 1705 / 1705 200 / 200
Balance 929.1 / 937.6 1511.3 / 1511.3 282.0 / 282.0
Physical Exam
Physical Exam
GEN: No distress, awake, alert, oriented x3
HEENT: supple, anicteric, mmm, RP Impella via RIJ
LUNGS: CTA b/l, no wheezes/rales
CV: irregularly irregular, S1/S2, no murmur
EXT: No clubbing, cyanosis, or edema
NEURO: Gross non-focal
SKIN: Warm, dry, no rash
[2024-11-10 12:23] LABS: B.E. - POC 0.8 mmol/L; Blood Urea Nitrogen - POC 18 mg/dl (3-120); Chloride - POC 101 mmol/L (96-111); Glucose - POC 169 mg/dl (70-99); HCO3 - POC 24 mmol/L (21-28); Hematocrit - POC 24 % PCV (37-47); Hemodilution- POC No; Hemoglobin Calculated - POC 8.1; Ionized Calcium - POC 1.17 mmol/L (1.15-1.33); Lactate - POC 2.27 mmol/L (0.36-0.75); O2 Saturation %Calculated-POC 95.7 % (94-98); PCO2 - POC 33 mmHg (35-48); PO2 - POC 73 mmHg (83-108); Potassium - POC 3.9 mmol/L (3.5-5.1); Sodium - POC 139 mmol/L (136-145); Specimen Type - POC Arterial; pH - POC 7.48 (7.35-7.45)
[2024-11-10] MEDS: CALCIUM GLUCONATE 100 IV (13:24)
[2024-11-10] MEDS: FERRLECIT 110 MG IV (14:32)
--- NOTE | 2024-11-10 15:00 | PTCARENOTE ---
SECURITY TECHNICIAN aware of lab results, heparin gtt adjusted per SECURITY TECHNICIAN orders. 1 unit PRBC given as ordered, 2g Calcium gluconate given.
--- NOTE | 2024-11-10 15:38 | CM ---
Reviewed chart. Met with Mrs. Antunez and her [id number] to review discharge plans. She states she is feeling tired. Prior to admission she reside alone in a one story home with one step to enter. Prior to admission she was independent with
ambulation and adls. She does not have any DME in the home. She has a prescription plan and uses [facility]. Will need to see her current functional level to see if he will have any skilled care needs. Medical work-up in progress. The
discharge plan is to return home with a home visit by the Transitional Care Nurse when medically stable.
[2024-11-10 17:19] LABS: Lactic Acid 2.8 mmol/L (0.7-2.0)
[2024-11-10 17:22] LABS: LDH 386 U/L (120-246)
[2024-11-10] MEDS: DOBUTREX 500 MG 250 IV (17:29)
[2024-11-10 17:31] LABS: APTT > 200 Sec (23.4-35.0)
[2024-11-10] MEDS: HEPARIN 25000 UNITS/250 ML IV (17:37)
[2024-11-10 17:49] LABS: Mixed Venous O2 Saturation 66.6 %
--- NOTE | 2024-11-10 17:50 | PTCARENOTE ---
Addendum entered by Monalisa Guerrero RN 11/10/24 18:40:
LEAD TECHNOLOGIST IN CYTOGENETICS aware of PTT, Heparin gtt put on hold @1820 as ordered. CBC, CMP, and ABG sent.
Original Note:
pt placed back to bed x2 person assist. labs drawn, LEAD TECHNOLOGIST IN CYTOGENETICS aware of results. MVO2 and repeat PTT drawn.
[2024-11-10 18:12] LABS: APTT > 200 Sec (23.4-35.0)
[2024-11-10 18:31] LABS: B.E. -1.2 mmol/L; HCO3 22.2 mmol/L (21-28); O2 Saturation % 99.2 % (94-98); PCO2 32 mmHg (32-35); PO2 96 mmHg (83-108); pH 7.45 (7.35-7.45)
[2024-11-10] MEDS: ALBUMIN 5% 250 IV (18:34)
[2024-11-10 18:36] LABS: % Basophils 0.1 % (0-2); % Immature Granulocytes 0.8 % (0-0.5); % Lymphocytes 3.1 % (20.5-51.1); % Monocytes 8.6 % (1.7-9.3); % Neutrophils 87.4 % (42.2-75.2); Absolute Immature Granulocytes 0.1 10^3/uL (0-0.05); Absolute Lymphocytes 0.6 10^3/uL (1.2-3.4); Absolute Monocytes 1.6 10^3/uL (0.1-0.6); Absolute Neutrophils 15.8 10^3/uL (1.4-6.5); Hematocrit 30.4 % (37.0-47.0); Hemoglobin 10.7 g/dL (12.0-16.0); Mean Corp Hgb Conc. 35.2 g/dL (33.0-37.0); Mean Corpuscular Volume 88.1 fL (81.0-99.0); Mean Platelet Volume 10.8 fL (7.4-10.4); Nucleated Red Blood Cells % 0 %; Platelet Count 56 10^3/uL (130-400); Red Blood Cell Count 3.45 10^6/uL (4.20-5.40); Red Cell Dist. Width 14.9 % (11.5-14.5); White Blood Cell Count 18.1 10^3/uL (4.8-10.8)
[2024-11-10 19:22] LABS: ALT (SGPT) 18 U/L (0-35); AST (SGOT) 55 U/L (14-36); Albumin 3.7 g/dl (3.5-5.0); Alkaline Phosphatase 43 U/L (38-126); Blood Urea Nitrogen 20 mg/dl (7-17); Calcium 9.5 mg/dl (8.4-10.2); Carbon Dioxide 23 mmol/L (22-30); Chloride 104 mmol/L (98-107); Estimated Creatinine Clearance 33 ml/min; Glucose 157 mg/dl (70-99); Potassium 4.4 mmol/L (3.5-5.1); Sodium 133 mmol/L (135-145); Total Bilirubin 2.3 mg/dl (0.2-1.3); Total Protein 5.3 g/dl (6.3-8.2); eGFR > 60.00
[2024-11-10] MEDS: ROXICODONE 2.5 MG PO (19:57)
--- NOTE | 2024-11-10 20:00 | PTCARENOTE ---
Assumed care of patient at 1900, patient alert and oriented. Chest tube dressing had sangious drainage from site, provider aware, dressing changed, no active drainage noted.
[2024-11-10 20:04] LABS: Lactic Acid 2.4 mmol/L (0.7-2.0)
[2024-11-10 20:05] LABS: APTT 79.6 Sec (23.4-35.0)
[2024-11-11] VITALS (46 sets, daily range): BP systolic 92–142; BP diastolic 51–95; BMI 25.1
--- NOTE | 2024-11-11 | PTCARENOTE ---
Albumin 5 % given, Dobutamine at 3, aminodrone @ .5 Patient PTT resulted 86.0 Heparin remains at 400units/hr will repeat APPT in 3 hours. Chest tubes have minial output . Patient denies pains and is resting.
[2024-11-11 00:36] LABS: Lactic Acid 0.9 mmol/L (0.7-2.0)
[2024-11-11 00:46] LABS: LDH 376 U/L (120-246)
[2024-11-11 03:04] LABS: Mixed Venous O2 Saturation 97.4 %
[2024-11-11 03:13] LABS: Hematocrit 27.3 % (37.0-47.0); Hemoglobin 9.8 g/dL (12.0-16.0); Mean Corp Hgb Conc. 35.9 g/dL (33.0-37.0); Mean Corpuscular Hgb 31.7 pg (27.0-31.0); Mean Corpuscular Volume 88.3 fL (81.0-99.0); Platelet Count 51 10^3/uL (130-400); Red Blood Cell Count 3.09 10^6/uL (4.20-5.40); Red Cell Dist. Width 15.1 % (11.5-14.5); White Blood Cell Count 15.1 10^3/uL (4.8-10.8)
[2024-11-11 03:17] LABS: Lactic Acid 0.8 mmol/L (0.7-2.0)
[2024-11-11 03:26] LABS: Fibrinogen 303 MG/DL (199-459)
[2024-11-11 03:58] LABS: ALT (SGPT) 19 U/L (0-35); AST (SGOT) 48 U/L (14-36); Albumin 3.5 g/dl (3.5-5.0); Alkaline Phosphatase 46 U/L (38-126); Blood Urea Nitrogen 19 mg/dl (7-17); Carbon Dioxide 27 mmol/L (22-30); Chloride 105 mmol/L (98-107); Estimated Creatinine Clearance 43 ml/min; Glucose 125 mg/dl (70-99); LDH 390 U/L (120-246); Potassium 4.2 mmol/L (3.5-5.1); Sodium 133 mmol/L (135-145); Total Bilirubin 2.6 mg/dl (0.2-1.3); eGFR > 60.00
--- NOTE | 2024-11-11 04:00 | PTCARENOTE ---
Patient bathed and dressing changed on Chest tube and wires insulated, denies pain at rest. replaced surgical bra. Reenforced three point fixation for impella with tape on bottom left. Urine output slightly improved over night.
[2024-11-11 04:21] LABS: Mixed Venous O2 Saturation 74.2 %
[2024-11-11 04:31] LABS: APTT 91.6 Sec (23.4-35.0)
[2024-11-11] MEDS: TYLENOL 1000 MG PO ×3 (06:02→23:16)
--- NOTE | 2024-11-11 08:00 | PTCARENOTE ---
pt received from previous RN, oriented, drowsy. follows commands, SALCEDO. A-fib on the monitor, irregular apical pulse. A&V wires insulated. HR 90-110s. Amiodarone gtt running as ordered. SBP 90-130s. Dobutamine gtt running as ordered. CVP ~14.
palpable pulses, trace/+1 generalized edema. RIJ RP Flex Impella in place, P-4. pt on RA, 95-96% POX. lungs diminished. IS 750ml. CTx2, no air leak or crepitus noted. pt abdomen s/n, denies n/v. NPO. +BS, +flatus. Zee in place, ORTHO TECH aware of UO.
sternal incision BAND MAKER, approximated. chest tube site intact. LIJ cordis maintained. PIV. heparin gtt placed on hold per Dr. Osborne. Sangeeta Gannon flushed, zeroed, and calibrated. see worklist for VS, I&O, and assessment.
--- NOTE | 2024-11-11 08:05 | W.PN.CT ---
Today's Communication / Plan
-
-pod #3
-no significant issues overnight
-remains in a-fib with RVR 120s-130s
-Impella @ P4. Alphonso 2.5
-lactic acid improved this am-0.8
-mvO2 74.2. Drips: Amio 0.5, Heparin 400 u/hr. PTT 91.6 this am
-CT output: 2 meds 115/270 in 12/24 hrs
-platelets are low but stable - 51K
-plans are to explant Impella today @~ 10:45 am. Will infuse platelets @ 10am
-Cr stable 0.7 - follow
-follow platelets and H&H
-encourage IS, OOB
Assessment / Plan
-
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
maze [combination of RF and cryoablation]; Left atrial appendage exclusion [45 mm clip] on 11/08/[address] Osborne, pod #3
- s/p Successful placement of an Impella RP flex via the right internal jugular vein on 11/08/[address] Camejo
- Intraop SARAI: LVEF preop was 55% with no significant regional wma. She does have a history of cardiomyopathy with mildly dilated right and left ventricles. Her left atrium and right atrium are also dilated. Following surgery EF did reduce to
+45% and she had some septal inferior wall hypokinesis with dyskinesia. The lateral wall was moving appropriately. Her right ventricle did appear to be mild to mild to moderately depressed after valve repair. At the conclusion of the case off
cardiopulmonary bypass there was no residual mitral valve insufficiency and no residual tricuspid valve insufficiency. The mean gradient across the mitral valve was 2 mmHg and the mean gradient across tricuspid valve was 1 mmHg. She did have
significant PACs conclusion of the case and required defibrillation x 2 likely secondary to air entrainment down the coronary. Follow-up transesophageal echocardiogram demonstrated that there was still residual air coming out of her pulmonary veins
and sitting in her left atrium.
- Degenerative mitral valve disease with severe insufficiency, type II pathology with some component of type I pathology
- Functional tricuspid valve insufficiency
- PVCs
- TIA
- Atrial fibrillation
- Osteoporosis
- Supraventricular tachycardia
- CHF, significant volume overload
- Acute postop blood loss anemia - s/p 1 pRBC on 11/08
- Acute postop thrombocytopenia - s/p 1 unit platelet on 11/09
- Acute postop hypovolemia with subsequent hypervolemia
- Acute postop atelectasis
Discussed patient care with: Nursing and Care Team
Subjective
-
Date of Service: November 11, 2024
Objective Data
-
Lab Results
11/11/24 02:53
11/11/24 02:53
PT 17.9 Sec (11.4-14.6) H 11/08/24 20:59
INR 1.42 11/08/24 20:59
APTT 91.6 Sec (23.4-35.0) H 11/11/24 04:13
Vital Signs
Vital Signs
Temp Pulse Resp BP Pulse Ox
99.2 F 99 19 133/55 95
11/11/24 07:00 11/11/24 07:40 11/11/24 07:40 11/11/24 07:00 11/11/24 07:40
CT Intake/Output/Weight
11/10/24 11/11/24 11/11/24
18:59 06:59 18:59
Intake Total 1866.4 / 2700.5 788.9 / 2700.5 45.2 / 45.2
Output Total 345 / 845 455 / 845 45 / 45
Balance 1521.4 / 1855.5 333.9 / 1855.5 0.2 / 0.2
SaO2: 95
Physical Exam
-
General: Awake and AOx3
Cardiovascular: Irregular rate & rhythm, No Murmurs and Rub
Respiratory: Decreased Breath Sounds
Sternum: Stable
Incision: Clean, Dry and Intact
Extremities: Edema +1
Abdomen: soft, nontender, nondistended
Data Reviewed
-
Lab Results: Results Reviewed
Medications: Active Meds Reviewed
Chest X-Ray: Report Reviewed and Image Reviewed
ECG: Report Reviewed and Image Reviewed
[2024-11-11] MEDS: ZINC PO (08:38)
[2024-11-11] MEDS: NSS IV (08:38)
[2024-11-11] MEDS: VITAMIN D3 (cholecalciferol) PO (08:38)
[2024-11-11] MEDS: THERAGRAN PO (08:38)
[2024-11-11] MEDS: VITAMIN C PO (08:38)
[2024-11-11] MEDS: OSCAL CAL 500 PO (08:38)
--- NOTE | 2024-11-11 10:38 | PTCARENOTE ---
ECHO completed, Impella placed to P-2 during ECHO by LAUNDRY MARKER SUPERVISOR. increased back to P-4 after ECHO completed. 1pk PLTs transfused as ordered.
[2024-11-11 10:57] LABS: ACT-LR - POC 134 Seconds (116-155)
[2024-11-11] MEDS: CALCIUM CHLORIDE 10% SYRINGE 1000 MG IV (11:30)
[2024-11-11] MEDS: BACTROBAN 2% OINTMENT 1 APPLIC NASAL ×2 (11:42→20:54)
--- NOTE | 2024-11-11 11:58 | W.PN.CT.SURG ---
CT Surgery Operative Note
-
Pre-op Diagnosis: RV Failure
Post-op Diagnosis: Same
Procedure: Removal of RP Impella at beside CPT 57150
Date: 11/11/24
Primary Surgeon: Salbador Osborne MD
Assisting Surgeons: Lianne Kirk
Specimen: None
Cultures: None
Complications / Blood Loss: None
Findings:
I dropped her flows to P2 and there was no significant drop in hemodynamics, PAPs remained stable, and Alphonso was still above 1.5. The previous purse string was cut after prepping the area and catheter widely. I placed a new prolene pursuestring with
a butress using a boogie catheter. The device was shut off and pulled out. We allowed some bleed back and the prolene was tied down. We cleanse the area again and placed a sterile dressing.
--- NOTE | 2024-11-11 12:20 | W.PN.CARDCBS ---
Today's Communication / Plan
-
Continue supportive care
Impella to be removed by CT surgery today
Impression / Plan
-
PCP: Dayana Dotson
Pickling Operator: Quinten Pepper
Impression:
Severe Mitral valve regurgitation
s/p mitral valve repair with 34 mm band annuloplasty band 11/08/2024
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
s/p tricuspid repair with 30 mm band annuloplasty band 11/08/2024
Paroxysmal atrial fibrillation
s/p right and left atrial maze (combination of cryo and RF ablation) 11/08/2024
Left atrial appendage clip 45 mm device 11/08/2024, Dr. Osborne
PVCs
h/o TIA
Paroxysmal Atrial fibrillation
Osteoporosis
Supraventricular tachycardia
Heart failure with preserved ejection fraction
Hypernatremia
Cardiac catheterization 10/05/2024: LM: Patent. LAD: Patent. Left circumflex: Patent. RCA: Patent. HEMODYNAMIC FINDINGS (mmHg): LV(s/d,EDP): 115/12, 17; Ao(s/d,m): 115/67, 90. LVG EF 65%, +4 MR
Echo 09/12/2024: EF 50 to 55%. No regional wall motion abnormalities. Mild concentric LVH. Normal RV size and function. Severely dilated left atrium with volume index 57.0 mL/m2. Severe mitral regurgitation with moderate mitral annular
calcification. Moderate tricuspid regurgitation. RVSP 33.3 mmHg.
Intra-op SARAI 11/08/2024: Severe MR with prolapse of P2 with flail segment. Mild to moderate TR. By atrial enlargement. Post operative SARAI status post MV repair with annuloplasty band no paravalvular leak and leaflets functioning appropriately.
Mean gradient 2. Status post TR repair with 30 mm annuloplasty band with residual trace TR, mean gradient 1 mmHg. EF 45%. Status post left atrial appendage exclusion clip well-seated no flow seen into the left atrial appendage. Significant amount
of residual gas/air in left atrium. Moderate to severe RV systolic dysfunction.
Echo 11/08/2024: EF 50-55%, RV top normal size, s/p MV repair with peak/mean gradients across the mitral valve of 6/3 mmHg, respectively, no MR, s/p TV repair with a mean gradient of 1 mmHg, trace TR, normal pericardium without effusion.
Plan:
s/p mitral valve repair, tricuspid valve repair, left and right atrial maze, and NENA clip 11/08/2024 w/ Dr. Osborne
-Intra-op there was concern for micro air emboli w/ episode of VF requiring resuscitation. Post-op SARAI showed significant amount of residual air/gas in L atrium w/ moderate to severe RV systolic dysfunction. CI 1.7 w/ SVR <2000, with rising lactate
level, so underwent RP Impella placement via RIJ.
-Impella remains in place. Per CT surgery, tolerated down to P2 this AM;CT surgery to remove device today
-Feeling well overnight with no issues noted.
-BP stable.
-Remains in rapid afib on review of tele. Continues on IV amiodarone. BB on hold while on dobutamine
-Eliquis on hold since admission. s/p NENA exclusion 11/08.
HPI 11/08/2024:
Patient is a 84-year-old female with severe symptomatic mitral valve regurgitation, moderate to severe tricuspid regurgitation, heart failure with preserved ejection fraction, paroxysmal atrial fibrillation on chronic anticoagulation with Eliquis,
history of TIA and migraine headache. Patient developed symptomatic mixed valvular disease and worsening heart failure symptoms requiring diuretic therapy. She underwent cardiac catheterization September 2024 which demonstrated no significant coronary
artery disease. She now presents for elective valve repair of mitral and tricuspid valves as well as maze and left atrial appendage clipping. Cardiology being asked to see patient postoperatively.
Progress Note - Pickling Operator
Subjective
Date of Service: November 11, 2024
Seen and examined. Overnight stable without new events. Plan for Impella removal later today
Objective
Labs:
Labs
Hgb 9.8 g/dL (12.0-16.0) L 11/11/24 02:53
Hct 27.3 % (37.0-47.0) L 11/11/24 02:53
Plt Count 51 10^3/uL (130-400) L 11/11/24 02:53
PT 17.9 Sec (11.4-14.6) H 11/08/24 20:59
INR 1.42 11/08/24 20:59
APTT 91.6 Sec (23.4-35.0) H 11/11/24 04:13
Sodium 133 mmol/L (135-145) L 11/11/24 02:53
Potassium 4.2 mmol/L (3.5-5.1) 11/11/24 02:53
BUN 19 mg/dl (7-17) H 11/11/24 02:53
Creatinine 0.7 mg/dL (0.6-1.0) 11/11/24 02:53
Glucose 125 mg/dl (70-99) H 11/11/24 02:53
Vital Signs and I&O:
Vital Signs
Temp Pulse Resp BP Pulse Ox
99.3 F 133 23 121/69 95
11/11/24 12:00 11/11/24 12:01 11/11/24 12:01 11/11/24 12:01 11/11/24 12:01
Vital Signs
Temp Pulse Resp BP Pulse Ox
99.3 F 133 23 121/69 95
11/11/24 12:00 11/11/24 12:01 11/11/24 12:01 11/11/24 12:01 11/11/24 12:01
Intake & Output
11/09/24 11/10/24 11/11/24 11/12/24
06:59 06:59 06:59 06:59
Intake Total 1824.1 / 1862.6 3261.7 / 3261.7 2655.3 / 2700.5 503.5 / 503.5
Output Total 895 / 925 1705 / 1705 800 / 845 130 / 130
Balance 929.1 / 937.6 1556.7 / 1556.7 1855.3 / 1855.5 373.5 / 373.5
Physical Exam
Physical Exam
GEN: No distress, awake, alert, oriented x3
HEENT: supple, anicteric, mmm, RP Impella via RIJ
LUNGS: CTA b/l, no wheezes/rales
CV: irregularly irregular, S1/S2, no murmur
EXT: No edema
NEURO: Gross non-focal
--- NOTE | 2024-11-11 12:30 | PTCARENOTE ---
ACT 134, GLASS SETTER aware. Dr Osborne at bedside. RIJ RP Flex Impella removed, dressing in place. Amiodarone gtt completed. Dobutamine gtt titrated per Dr. Osborne, 1g Calcium IVP given. ECHO completed. lab work sent as ordered. Teressa bee, GLASS SETTER aware.
[2024-11-11 12:31] LABS: Hematocrit 29.3 % (37.0-47.0); Hemoglobin 10.3 g/dL (12.0-16.0); Mean Corp Hgb Conc. 35.2 g/dL (33.0-37.0); Mean Corpuscular Volume 88.3 fL (81.0-99.0); Mean Platelet Volume 10.5 fL (7.4-10.4); Platelet Count 70 10^3/uL (130-400); Red Blood Cell Count 3.32 10^6/uL (4.20-5.40); Red Cell Dist. Width 15.4 % (11.5-14.5); White Blood Cell Count 15.8 10^3/uL (4.8-10.8)
[2024-11-11 12:40] LABS: Lactic Acid 0.9 mmol/L (0.7-2.0)
[2024-11-11] MEDS: NEURONTIN PO (12:43)
[2024-11-11] MEDS: MAGNESIUM OXIDE 500 MG PO ×2 (12:53→20:55)
[2024-11-11] MEDS: SENOKOT-S 1 TABLET PO ×2 (12:53→20:55)
[2024-11-11] MEDS: LIDOCAINE 4% PATCH TOPICAL (12:53)
[2024-11-11 12:54] LABS: ALT (SGPT) 19 U/L (0-35); AST (SGOT) 40 U/L (14-36); Albumin 3.3 g/dl (3.5-5.0); Alkaline Phosphatase 48 U/L (38-126); Blood Urea Nitrogen 18 mg/dl (7-17); Calcium 9.9 mg/dl (8.4-10.2); Carbon Dioxide 28 mmol/L (22-30); Chloride 105 mmol/L (98-107); Estimated Creatinine Clearance 50 ml/min; Glucose 114 mg/dl (70-99); LDH 378 U/L (120-246); Potassium 4.4 mmol/L (3.5-5.1); Sodium 131 mmol/L (135-145); Total Bilirubin 2.4 mg/dl (0.2-1.3); eGFR > 60.00
[2024-11-11] MEDS: PROTONIX 40 MG PO (12:54)
[2024-11-11 14:30] LABS: Lactic Acid 1.6 mmol/L (0.7-2.0)
[2024-11-11] MEDS: FERRLECIT 110 MG IV (14:42)
[2024-11-11 14:45] LABS: Hematocrit 29.4 % (37.0-47.0); Hemoglobin 10.3 g/dL (12.0-16.0); Mean Corpuscular Hgb 31.1 pg (27.0-31.0); Mean Corpuscular Volume 88.8 fL (81.0-99.0); Mean Platelet Volume 10.2 fL (7.4-10.4); Platelet Count 73 10^3/uL (130-400); Red Blood Cell Count 3.31 10^6/uL (4.20-5.40); Red Cell Dist. Width 15.2 % (11.5-14.5); White Blood Cell Count 13.9 10^3/uL (4.8-10.8)
[2024-11-11 14:48] LABS: ALT (SGPT) 20 U/L (0-35); AST (SGOT) 38 U/L (14-36); Albumin 3.3 g/dl (3.5-5.0); Alkaline Phosphatase 47 U/L (38-126); Blood Urea Nitrogen 17 mg/dl (7-17); Calcium 9.5 mg/dl (8.4-10.2); Carbon Dioxide 24 mmol/L (22-30); Chloride 104 mmol/L (98-107); Estimated Creatinine Clearance 43 ml/min; Glucose 159 mg/dl (70-99); LDH 362 U/L (120-246); Potassium 4.2 mmol/L (3.5-5.1); Sodium 131 mmol/L (135-145); Total Bilirubin 2.5 mg/dl (0.2-1.3); eGFR > 60.00
--- NOTE | 2024-11-11 15:00 | PTCARENOTE ---
R radial Teressa dampened, FIELD SALES EXECUTIVE aware. R radial Teressa d'cd as ordered, manual pressure held. dressing c/d/i. Med CTx2 dc'd as ordered, dressing intact. pt washed w/ CHG wipes, gown changed. FIELD SALES EXECUTIVE aware of 1400 lab results.
--- NOTE | 2024-11-11 15:44 | W.PN.INTV ---
Today's Communication / Plan
Recommendations
- Incentive spirometry
- Wean dobutamine as tolerated
Assessment
-
Patient is a very pleasant 84-year-old female with known history of severe mitral regurgitation and tricuspid regurgitation with resultant heart failure with preserved ejection fraction and worsening dyspnea. She had a coronary angiogram performed
in September 2024 which was negative for any significant coronary artery disease. Patient subsequently was seen by CT surgery and was admitted for an elective mitral valve and tricuspid valve repair. She had the above procedure performed on 11/08/2024
along with right and left atrial maze procedure. At the separation from heart-lung machine, paradoxical septal wall motion was noted with brief episode of V-fib necessitating resuscitation suspected due to micro air emboli. SARAI showed significant
amount of residual air/gas in the left atrium along with moderate to severe right ventricular systolic dysfunction. Patient subsequently was brought to CVICU. She developed rising lactate level and cardiogenic shock and a 2D echo cardiogram showed
significantly worse RV function. Patient was taken to Break Off Worker and had RP Impella placed for right ventricular support. Subsequently lactate has improved. Patient has been successfully extubated since and is doing well. Truck Service Manager consultation
was requested for further input.
S/p left and right atrial maze procedure, left atrial appendage exclusion, radical mitral valve repair, tricuspid valve repair POD #3
11/08/2024, Post-op, Acute RV dysfunction, S/p RP Impella (pRVAD), removed 11/11
Titrate off pressors per protocol, Impella removed, Dobutamine @5, off heparin now
Blood pressure 120/54 1. Noted to be in A fib with RVR 137/min
ECHO reviewed, 11/08, severely reduced RV systolic function. Normal LVEF
Chest tube removed, 11/11
Extubated, currently on O2 at 2L, saturating 99%. Work of breathing normal
CXR with no obvious opacities/infiltrates, ?trace pleural effusions.
No prior history of pulmonary disease
Can add nebulizers if needed
Aspiration precautions
Encouraged incentive spirometry, OOB/ambulation/early mobility
Advance diet as tolerated following extubation
GI prophylaxis: Pantoprazole
Monitor critical I/O's
Zee/chest tube output
Hemoglobin 10.3, platelet at 73K,
LDH 709 > 557 > 476 > 44.
Trend CBC for now
#1. Severe symptomatic Mitral valve regurgitation, moderate to severe TR. s/p MV and TV repair (11/08/2024)
#2. Post-op Acute RV dysfunction and cardiogenic shock. s/p RP Impella placed (11/08/2024), Dobutamine, Impella removed 11/11
#3. HFpEF, due to MR and TR. CXR without pulmonary edema today. s/p Albumin IV.
#4. Paroxysmal A Fib with RVR. Off Heparin now. PO Amiodarone and p.o. metoprolol both have been on hold
#5. H/o TIA. On aspirin
#6. Thrombocytopenia. Fibrinogen normal, D-dimer elevated. Platelet count improving
Critical Care time 42 mins -- The patient is admitted for acute critical illness for the treatment of vital organ failure and/or prevention of further life-threatening conditions. Total care includes time spent in review of history, physical exam,
medications, hemodynamic/ventilator parameters, laboratory data, imaging and discussion with house staff, pharmacy, respiratory therapy, vehicle controls engineer, and nursing.
Data:
ECHO 10/2024: Normal left ventricular size, wall thickness and systolic function. No regional
wall motion abnormalities are seen. LV ejection fraction is 50-55% by visual
assessment.
Severely reduced right ventricular systolic function. Right ventricle is top
normal in size.
Mitral valve repair with peak/mean gradients across the mitral valve of 6/3
mmHg, respectively. No mitral regurgitation is seen.
Tricuspid valve repair with a mean gradient of 1 mmHg. Trace tricuspid
regurgitation.
Normal pericardium without effusion.
Compared to transesophageal echo dated 10/20/2024: mitral and tricuspid valves
have been repaired; right ventricular systolic function is severely reduced and
was previously normal.
CT Chest/Abd/Pelvis: 10/2024: 1. No aortic aneurysm or dissection.
2. Mild coronary artery calcifications. Minimal atherosclerotic calcifications.
3. Trace right pleural effusion.
Cardiac Cath 09/2024: 1: Normal coronary arteries.
2: Severe mitral regurgitation with preserved LV systolic function.
Subjective Dataa
Subjective Data
Date of Service:
Date of Service: November 11, 2024
Subjective:
Patient comfortably sitting in bed in no acute distress.
Review of Systems
Cardiopulmonary: Edema
Genitourinary: Other (No other new symptoms reported.)
Objective Data
Data Reviewed
Vital Signs / I&O / Oxygen:
Vital Signs
Temp Pulse Resp BP Pulse Ox
99.8 F 137 23 120/54 96
11/11/24 15:00 11/11/24 15:20 11/11/24 15:20 11/11/24 15:00 11/11/24 15:20
Intake and Output
11/10/24 11/11/24 11/12/24
06:59 06:59 06:59
Intake Total 3261.7 / 3261.7 2655.3 / 2700.5 668.5 / 668.5
Output Total 1705 / 1705 800 / 845 250 / 250
Balance 1556.7 / 1556.7 1855.3 / 1855.5 418.5 / 418.5
SaO2 [SIMV] 100
SaO2 96
Nasal Cannula flow liters per 0
minute
Physical Exam
General: Comfortable
HEENT: Normocephalic
Cardiovascular: S1-S2 and Peripheral Edema
Respiratory: Clear and Non-Labored Respirations
GI: Soft
Skin: Warm
Labs/Micro/Reports
Laboratory Results
11/10/24 11/10/24 11/10/24
16:59 17:43 18:26
APTT > 200 H* > 200 H*
pH 7.45
pCO2 32
pO2 96
HCO3 22.2
O2 Delivery Level
11/10/24 11/10/24 11/11/24
19:46 23:48 04:13
APTT 79.6 H 86.0 H 91.6 H
pH
pCO2
pO2
HCO3
O2 Delivery Level
Microbiology
11/08/24 07:15 Urine Urine Culture - Final
NO GROWTH
[2024-11-11] MEDS: PACERONE 200 MG PO ×2 (16:09→23:15)
[2024-11-11] MEDS: NEURONTIN 100 MG PO ×2 (16:09→23:15)
[2024-11-11 16:24] LABS: Mixed Venous O2 Saturation 65.6 %
[2024-11-11 16:30] LABS: White Blood Cell Count 14.1 10^3/uL (4.8-10.8)
[2024-11-11 16:31] LABS: Hematocrit 28.8 % (37.0-47.0); Hemoglobin 10.1 g/dL (12.0-16.0); Mean Corp Hgb Conc. 35.1 g/dL (33.0-37.0); Mean Corpuscular Hgb 31.4 pg (27.0-31.0); Mean Corpuscular Volume 89.4 fL (81.0-99.0); Mean Platelet Volume 10.5 fL (7.4-10.4); Platelet Count 76 10^3/uL (130-400); Red Blood Cell Count 3.22 10^6/uL (4.20-5.40); Red Cell Dist. Width 15.3 % (11.5-14.5)
[2024-11-11 16:34] LABS: Lactic Acid 1.8 mmol/L (0.7-2.0)
[2024-11-11 16:35] LABS: ALT (SGPT) 20 U/L (0-35); AST (SGOT) 37 U/L (14-36); Albumin 3.3 g/dl (3.5-5.0); Alkaline Phosphatase 54 U/L (38-126); Blood Urea Nitrogen 17 mg/dl (7-17); Calcium 9.4 mg/dl (8.4-10.2); Carbon Dioxide 26 mmol/L (22-30); Chloride 102 mmol/L (98-107); Estimated Creatinine Clearance 43 ml/min; Glucose 125 mg/dl (70-99); LDH 352 U/L (120-246); Potassium 4.5 mmol/L (3.5-5.1); Sodium 130 mmol/L (135-145); Total Bilirubin 2.5 mg/dl (0.2-1.3); Total Protein 5.1 g/dl (6.3-8.2); eGFR > 60.00
--- NOTE | 2024-11-11 17:06 | CM ---
Reviewed chart. She has her Impella removed today. Prior to admission She resides alone in alone in a one story home with one step to enter. Prior to admission she was independent with ambulation and adls. She does not have DME in the home. She
has a prescription plan and uses [facility]. Will need to see her current functional level to see if she will have any skilled care needs. Medical work-up in progress. The discharge plan is to return home with a home visit by the
Transitional Care Nurse verses some level of inpatient rehab when medically stable.
[2024-11-11 17:36] LABS: B.E. - POC 2.4 mmol/L; Blood Urea Nitrogen - POC 17 mg/dl (3-120); Chloride - POC 95 mmol/L (96-111); Creatinine - POC 0.74 mg/dl (0.3-1.0); Glucose - POC 134 mg/dl (70-99); HCO3 - POC 27 mmol/L (21-28); Hematocrit - POC 29 % PCV (37-47); Hemodilution- POC No; Hemoglobin Calculated - POC 9.9; Ionized Calcium - POC 1.33 mmol/L (1.15-1.33); Lactate - POC 1.57 mmol/L (0.36-0.75); O2 Saturation %Calculated-POC 61.5 % (94-98); PCO2 - POC 38 mmHg (35-48); PO2 - POC 30 mmHg (83-108); Potassium - POC 4.3 mmol/L (3.5-5.1); Sodium - POC 134 mmol/L (136-145); Specimen Type - POC Venous; pH - POC 7.45 (7.35-7.45)
[2024-11-11 17:53] LABS: Hematocrit 28.8 % (37.0-47.0); Hemoglobin 10.1 g/dL (12.0-16.0); Mean Corp Hgb Conc. 35.1 g/dL (33.0-37.0); Mean Corpuscular Hgb 31.4 pg (27.0-31.0); Mean Corpuscular Volume 89.4 fL (81.0-99.0); Mean Platelet Volume 10.8 fL (7.4-10.4); Platelet Count 76 10^3/uL (130-400); Red Blood Cell Count 3.22 10^6/uL (4.20-5.40); Red Cell Dist. Width 15.4 % (11.5-14.5); White Blood Cell Count 13.2 10^3/uL (4.8-10.8)
[2024-11-11 17:55] LABS: INR 1.12; PT 14.7 Sec (11.4-14.6)
[2024-11-11 17:56] LABS: APTT 48.2 Sec (23.4-35.0)
[2024-11-11 18:05] LABS: Lactic Acid 1.6 mmol/L (0.7-2.0)
[2024-11-11 18:08] LABS: ALT (SGPT) 22 U/L (0-35); AST (SGOT) 39 U/L (14-36); Albumin 3.4 g/dl (3.5-5.0); Alkaline Phosphatase 57 U/L (38-126); Blood Urea Nitrogen 18 mg/dl (7-17); Calcium 9.4 mg/dl (8.4-10.2); Carbon Dioxide 26 mmol/L (22-30); Chloride 102 mmol/L (98-107); Estimated Creatinine Clearance 43 ml/min; Glucose 138 mg/dl (70-99); Potassium 4.4 mmol/L (3.5-5.1); Sodium 130 mmol/L (135-145); Total Bilirubin 2.4 mg/dl (0.2-1.3); eGFR > 60.00
--- NOTE | 2024-11-11 18:29 | PTCARENOTE ---
BUILD MANAGER aware of lab results. pt OOB to chair for dinner x2 person assist. family at bedside.
--- NOTE | 2024-11-11 20:00 | PTCARENOTE ---
Report received from RHIANNON Sheldon. Pt assessed. VS recorded. See Flowsheet. Pt up in chair. Assisted back to bed with 2 RNs. Pt alert, awake, oriented x 4. Speech clear. Generalized weakness yet equal strength x 4. Pt on room air. Sats on room air
95-96%. +CRUZ with going back to bed. BBS present. Rales to L posterior base. Decreased bibasilarly. CDB and IS encouraged. IS peak 500 mls. Surgibra intact. Pt in AF, rate 110-130's. Normotensive. Ed, PA made aware. To given Amiodarone bolus IV to
be ordered. Audible heart tones. +2 pitting edema generalized. AV wires insulated to chest. For pulse and wound assessments, see flowsheets. Belly soft, nontender. Normoactive bs x 4. Passing flatus. Poor appetite. Zee intact, lino, clear urine.
Hourly outputs recorded. Ongoing plan of care. Family at bedside.
[2024-11-11] MEDS: OSCAL CAL 500 1000 MG PO (20:55)
[2024-11-11 22:09] LABS: Mixed Venous O2 Saturation 70.5 %
[2024-11-11] MEDS: CORDARONE 103 MG IV (22:09)
[2024-11-11 22:14] LABS: Hematocrit 28.9 % (37.0-47.0); Hemoglobin 10.1 g/dL (12.0-16.0); Mean Corp Hgb Conc. 34.9 g/dL (33.0-37.0); Mean Corpuscular Volume 88.7 fL (81.0-99.0); Mean Platelet Volume 10.6 fL (7.4-10.4); Platelet Count 76 10^3/uL (130-400); Red Blood Cell Count 3.26 10^6/uL (4.20-5.40); Red Cell Dist. Width 15.1 % (11.5-14.5); White Blood Cell Count 12.8 10^3/uL (4.8-10.8)
[2024-11-11 22:22] LABS: Lactic Acid 1.6 mmol/L (0.7-2.0)
[2024-11-11 22:28] LABS: ALT (SGPT) 21 U/L (0-35); AST (SGOT) 36 U/L (14-36); Albumin 3.3 g/dl (3.5-5.0); Alkaline Phosphatase 58 U/L (38-126); Blood Urea Nitrogen 17 mg/dl (7-17); Calcium 9.4 mg/dl (8.4-10.2); Carbon Dioxide 26 mmol/L (22-30); Chloride 102 mmol/L (98-107); Estimated Creatinine Clearance 38 ml/min; Glucose 123 mg/dl (70-99); Potassium 4.5 mmol/L (3.5-5.1); Sodium 128 mmol/L (135-145); Total Bilirubin 2.1 mg/dl (0.2-1.3); eGFR > 60.00
[2024-11-11 22:33] LABS: INR 1.06; PT 14.2 Sec (11.4-14.6)
[2024-11-11 22:34] LABS: APTT 39.9 Sec (23.4-35.0)
[2024-11-11] MEDS: ZOFRAN 4 MG IV (23:22)
--- NOTE | 2024-11-11 23:30 | PTCARENOTE ---
Labs drawn and sent. Amiodarone 150 mg IV bolus given at 2208. Pt remains in AF. Rate 100-110's. Pt with nausea/small amount of emesis. Zofran given at 2321. Mouth care done. Zee care done. Ongoing plan of care. Dobut remains at 5 mcg/kg/min.
[2024-11-12] VITALS (38 sets, daily range): BP systolic 90–139; BP diastolic 50–126; PULSE 112; O2SAT 96; BMI 25.7; BMI 25.8
--- NOTE | 2024-11-12 00:30 | PTCARENOTE ---
UO down to 10 mls/hr. PA notified.
[2024-11-12] MEDS: ROXICODONE 2.5 MG PO (01:49)
--- NOTE | 2024-11-12 02:30 | PTCARENOTE ---
Pt c/o L upper back pain while lying on L side. Pt repositioned to supine position. Roxicodone 2.5 mg po given for 5/10 pain to L upper back. VS done. Pt remains in AF. Rate 110-120's. Sats 94-95% on room air. Normotensive. Dobutamine remains at 5
mcg/kg/min. Labs drawn and sent. UO 10-15 mls/hr.
[2024-11-12 02:50] LABS: Mixed Venous O2 Saturation 71.2 %
[2024-11-12 02:57] LABS: Hematocrit 28.1 % (37.0-47.0); Hemoglobin 9.8 g/dL (12.0-16.0); Mean Corp Hgb Conc. 34.9 g/dL (33.0-37.0); Mean Corpuscular Hgb 31.5 pg (27.0-31.0); Mean Corpuscular Volume 90.4 fL (81.0-99.0); Mean Platelet Volume 10.9 fL (7.4-10.4); Platelet Count 72 10^3/uL (130-400); Red Blood Cell Count 3.11 10^6/uL (4.20-5.40); Red Cell Dist. Width 15.2 % (11.5-14.5); White Blood Cell Count 11.2 10^3/uL (4.8-10.8)
[2024-11-12 03:01] LABS: APTT 36.4 Sec (23.4-35.0); INR 1.06; PT 14.1 Sec (11.4-14.6)
[2024-11-12 03:03] LABS: Lactic Acid 1.2 mmol/L (0.7-2.0)
[2024-11-12 03:05] LABS: ALT (SGPT) 23 U/L (0-35); AST (SGOT) 36 U/L (14-36); Albumin 3.1 g/dl (3.5-5.0); Alkaline Phosphatase 60 U/L (38-126); Blood Urea Nitrogen 19 mg/dl (7-17); Carbon Dioxide 25 mmol/L (22-30); Chloride 103 mmol/L (98-107); Estimated Creatinine Clearance 38 ml/min; Glucose 124 mg/dl (70-99); Potassium 4.5 mmol/L (3.5-5.1); Sodium 129 mmol/L (135-145); Total Bilirubin 2.4 mg/dl (0.2-1.3); Total Protein 4.8 g/dl (6.3-8.2); eGFR > 60.00
--- NOTE | 2024-11-12 04:32 | W.PN.CT ---
Addendum entered and electronically signed by Dangelo Letser MD 11/12/24 09:47:
I saw and examined the patient.
The PA's note was reviewed and I agree with the note.
Comment:
Wean dobutamine to 4 (from 5) - hold today
Lasix 10mg IV today - creat 0.8
Labs to q8h, albumin
Hyponatremia stable (129)
OOB/IS
Original Note:
Today's Communication / Plan
-
Plan:
-No major issues overnight. Hemodynamically and neurologically intact
-no significant issues overnight
-On Dobutamine @ 5 mcg/kg/min
-MVO2 71.2%
-Impella d/c'd yesterday 11/11
-Received 1 {5pk} plts prior to Impella removal for plt of 51, Plts 72 today, ASA is on hold. Eventual resumption of Eliquis
-Has been in A-fib with RVR 103-120's postop
-Wean Dobutamine today, should help with tachycardia/a-fib
-Postop hyponatremia is improving, 129 today, up from 128 yesterday
-Encourage use of IS
-OOB into chair/Ambulate
Assessment / Plan
-
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
maze [combination of RF and cryoablation]; Left atrial appendage exclusion [45 mm clip] on 11/08/[address] Osborne, pod #4
- s/p Successful placement of an Impella RP flex via the right internal jugular vein on 11/08/[address] Camejo
- Intraop SARAI: LVEF preop was 55% with no significant regional wma. She does have a history of cardiomyopathy with mildly dilated right and left ventricles. Her left atrium and right atrium are also dilated. Following surgery EF did reduce to
+45% and she had some septal inferior wall hypokinesis with dyskinesia. The lateral wall was moving appropriately. Her right ventricle did appear to be mild to mild to moderately depressed after valve repair. At the conclusion of the case off
cardiopulmonary bypass there was no residual mitral valve insufficiency and no residual tricuspid valve insufficiency. The mean gradient across the mitral valve was 2 mmHg and the mean gradient across tricuspid valve was 1 mmHg. She did have
significant PACs conclusion of the case and required defibrillation x 2 likely secondary to air entrainment down the coronary. Follow-up transesophageal echocardiogram demonstrated that there was still residual air coming out of her pulmonary veins
and sitting in her left atrium.
- Degenerative mitral valve disease with severe insufficiency, type II pathology with some component of type I pathology
- Functional tricuspid valve insufficiency
- PVCs
- TIA
- Atrial fibrillation
- Osteoporosis
- Supraventricular tachycardia
- CHF, significant volume overload
- Acute postop blood loss anemia - s/p 1 pRBC on 11/08
- Acute postop thrombocytopenia - s/p 1 unit platelet on 11/09
- Acute postop hypovolemia with subsequent hypervolemia
- Acute postop atelectasis
Discussed patient care with: Cardiology, Nursing, Respiratory Therapy, Pharmacy and Care Team
Subjective
-
Date of Service: November 12, 2024
Pt c/o mild incisional pain, otherwise feels well
Objective Data
-
Lab Results
11/12/24 02:31
11/12/24 02:31
PT 14.1 Sec (11.4-14.6) 11/12/24 02:31
INR 1.06 11/12/24 02:31
APTT 36.4 Sec (23.4-35.0) H 11/12/24 02:31
Vital Signs
Vital Signs
Temp Pulse Resp BP Pulse Ox
98.3 F 128 16 115/59 94
11/11/24 23:00 11/12/24 03:00 11/12/24 03:00 11/12/24 03:00 11/12/24 03:00
CT Intake/Output/Weight
11/11/24 11/11/24 11/12/24
06:59 18:59 06:59
Intake Total 788.9 / 2700.5 751.0 / 1126.0 375.0 / 1126.0
Output Total 455 / 845 305 / 465 160 / 465
Balance 333.9 / 1855.5 446.0 / 661.0 215.0 / 661.0
SaO2: 94 (RA)
Physical Exam
-
General: Awake, Oriented and AOx3
Cardiovascular: Irregular rate & rhythm, No Murmurs, No Rub and No Gallop
Respiratory: Decreased Breath Sounds (at bases, otherwise clear)
Sternum: Stable
Incision: Clean, Dry, Intact and Dressing Intact
Extremities: Edema +1
Data Reviewed
-
Lab Results: Results Reviewed
Medications: Active Meds Reviewed
Chest X-Ray: Report Reviewed and Image Reviewed
ECG: Report Reviewed and Image Reviewed
[2024-11-12] MEDS: TYLENOL 1000 MG PO ×3 (06:43→22:42)
--- NOTE | 2024-11-12 07:00 | PTCARENOTE ---
report received from previous RN at change of shift. pt resting in bed, AAOX3. pt denies pain at this time. Afib on telemetry heart rate 110s. pulses palpable. +2 generalized edema. pt on room air, sat 96%. lung sounds diminished in bases. active
bowel sounds. boogie draining clear lino urine. surgical sites CDI. right IJ cordis/slick infusing kvo, dobutamine per orders. see worklist for full nursing assessment and interventions.
[2024-11-12] MEDS: FLEXBUMIN 50 IV (08:30)
[2024-11-12] MEDS: LASIX 10 MG IV (08:31)
[2024-11-12] MEDS: PROTONIX 40 MG PO (09:32)
[2024-11-12] MEDS: BACTROBAN 2% OINTMENT 1 APPLIC NASAL (09:32)
[2024-11-12] MEDS: SENOKOT-S 1 TABLET PO ×2 (09:33→20:18)
[2024-11-12] MEDS: PACERONE 200 MG PO ×3 (09:33→22:41)
[2024-11-12] MEDS: MAGNESIUM OXIDE 500 MG PO ×2 (09:33→20:17)
[2024-11-12] MEDS: VITAMIN D3 (cholecalciferol) 25 MCG PO (09:33)
[2024-11-12] MEDS: THERAGRAN 1 TABLET PO (09:33)
[2024-11-12] MEDS: ZINC 50 MG PO (09:33)
[2024-11-12] MEDS: OSCAL CAL 500 1000 MG PO ×2 (09:33→20:17)
[2024-11-12] MEDS: VITAMIN C 500 MG PO (09:34)
[2024-11-12] MEDS: NSS 500 IV (09:34)
[2024-11-12] MEDS: NEURONTIN 100 MG PO ×3 (09:34→22:41)
--- NOTE | 2024-11-12 10:00 | PTCARENOTE ---
pt assisted OOB with 2 assist and rolling walker.
[2024-11-12] MEDS: DOBUTREX 500 MG 250 IV (10:48)
--- NOTE | 2024-11-12 12:00 | PTCARENOTE ---
vitals stable. pt resting comfortably OOB in chair. pt denies pain at this time. no changes in assessment noted.
[2024-11-12 12:21] LABS: Mixed Venous O2 Saturation 83.5 %
[2024-11-12 12:32] LABS: Hematocrit 27.6 % (37.0-47.0); Hemoglobin 9.8 g/dL (12.0-16.0); Mean Corp Hgb Conc. 35.5 g/dL (33.0-37.0); Mean Corpuscular Hgb 31.8 pg (27.0-31.0); Mean Corpuscular Volume 89.6 fL (81.0-99.0); Mean Platelet Volume 10.5 fL (7.4-10.4); Platelet Count 80 10^3/uL (130-400); Red Blood Cell Count 3.08 10^6/uL (4.20-5.40); Red Cell Dist. Width 15.1 % (11.5-14.5)
[2024-11-12 12:46] LABS: Blood Urea Nitrogen 19 mg/dl (7-17); Calcium 8.9 mg/dl (8.4-10.2); Carbon Dioxide 25 mmol/L (22-30); Chloride 102 mmol/L (98-107); Estimated Creatinine Clearance 48 ml/min; Glucose 118 mg/dl (70-99); Potassium 4.5 mmol/L (3.5-5.1); Sodium 129 mmol/L (135-145); eGFR > 60.00
--- NOTE | 2024-11-12 12:48 | W.PN.INTV ---
Today's Communication / Plan
Recommendations
- Continue to taper Midodrine as tolerated
- Increase activity as tolerated
Assessment
-
Patient is a very pleasant 84-year-old female with known history of severe mitral regurgitation and tricuspid regurgitation with resultant heart failure with preserved ejection fraction and worsening dyspnea. She had a coronary angiogram performed
in September 2024 which was negative for any significant coronary artery disease. Patient subsequently was seen by CT surgery and was admitted for an elective mitral valve and tricuspid valve repair. She had the above procedure performed on 11/08/2024
along with right and left atrial maze procedure. At the separation from heart-lung machine, paradoxical septal wall motion was noted with brief episode of V-fib necessitating resuscitation suspected due to micro air emboli. SARAI showed significant
amount of residual air/gas in the left atrium along with moderate to severe right ventricular systolic dysfunction. Patient subsequently was brought to CVICU. She developed rising lactate level and cardiogenic shock and a 2D echo cardiogram showed
significantly worse RV function. Patient was taken to Barking Machine Feeder and had RP Impella placed for right ventricular support. Subsequently lactate has improved. Patient has been successfully extubated since and is doing well. Resident Care Manager consultation
was requested for further input.
S/p left and right atrial maze procedure, left atrial appendage exclusion, radical mitral valve repair, tricuspid valve repair POD #4
11/08/2024, Post-op, Acute RV dysfunction, S/p RP Impella (pRVAD), removed 11/11
Titrate off pressors per protocol, Impella removed, Dobutamine @ 4 now, off heparin now
Blood pressure MAP 80. Noted to be in A fib with RVR 120/min
ECHO reviewed, 11/08, severely reduced RV systolic function. Normal LVEF
Chest tube removed, 11/11
Extubated, currently on RA, mid 's. Work of breathing normal
CXR with no obvious opacities/infiltrates, ?trace pleural effusions.
No prior history of pulmonary disease
Can add nebulizers if needed
Aspiration precautions
Encouraged incentive spirometry, OOB/ambulation/early mobility
Advance diet as tolerated following extubation
GI prophylaxis: Pantoprazole
Monitor critical I/O's
Zee/chest tube output
Hemoglobin 9.8, platelet at 80K.
LDH 709 > 557 > 476 > 352
Trend CBC for now
#1. Severe symptomatic Mitral valve regurgitation, moderate to severe TR. s/p MV and TV repair (11/08/2024)
#2. Post-op Acute RV dysfunction and cardiogenic shock. s/p RP Impella placed (11/08/2024), Dobutamine down to 4 now, Impella removed 11/11
#3. HFpEF, due to MR and TR. CXR without pulmonary edema today. s/p Albumin IV. Also received lasix
#4. Paroxysmal A Fib with RVR. Off Heparin now. PO Amiodarone resumed.
#5. H/o TIA. On aspirin
#6. Thrombocytopenia. Fibrinogen normal, D-dimer elevated. Platelet count improving
Critical Care time 39 mins -- The patient is admitted for acute critical illness for the treatment of vital organ failure and/or prevention of further life-threatening conditions. Total care includes time spent in review of history, physical exam,
medications, hemodynamic/ventilator parameters, laboratory data, imaging and discussion with house staff, pharmacy, respiratory therapy, systems integration analyst, and nursing.
Data:
ECHO 10/2024: Normal left ventricular size, wall thickness and systolic function. No regional
wall motion abnormalities are seen. LV ejection fraction is 50-55% by visual
assessment.
Severely reduced right ventricular systolic function. Right ventricle is top
normal in size.
Mitral valve repair with peak/mean gradients across the mitral valve of 6/3
mmHg, respectively. No mitral regurgitation is seen.
Tricuspid valve repair with a mean gradient of 1 mmHg. Trace tricuspid
regurgitation.
Normal pericardium without effusion.
Compared to transesophageal echo dated 10/20/2024: mitral and tricuspid valves
have been repaired; right ventricular systolic function is severely reduced and
was previously normal.
CT Chest/Abd/Pelvis: 10/2024: 1. No aortic aneurysm or dissection.
2. Mild coronary artery calcifications. Minimal atherosclerotic calcifications.
3. Trace right pleural effusion.
Cardiac Cath 09/2024: 1: Normal coronary arteries.
2: Severe mitral regurgitation with preserved LV systolic function.
Subjective Dataa
Subjective Data
Date of Service:
Date of Service: November 12, 2024
Subjective:
Patient comfortably sitting in chair, no acute distress
Review of Systems
Genitourinary: Other (No new symptoms reported )
Objective Data
Data Reviewed
Vital Signs / I&O / Oxygen:
Vital Signs
Temp Pulse Resp BP Pulse Ox
98.6 F 120 16 122/50 96
11/12/24 11:00 11/12/24 12:15 11/12/24 12:15 11/12/24 12:00 11/12/24 12:15
Intake and Output
11/11/24 11/12/24 11/13/24
06:59 06:59 06:59
Intake Total 2655.3 / 2700.5 1208.5 / 1236.0 209.0 / 209.0
Output Total 800 / 845 525 / 540 190 / 190
Balance 1855.3 / 1855.5 683.5 / 696.0 19.0 / 19.0
SaO2 [SIMV] 100
SaO2 96
Nasal Cannula flow liters per 0
minute
Physical Exam
General: Comfortable
HEENT: Normocephalic
Cardiovascular: S1-S2 and Peripheral Edema
Respiratory: Clear and Non-Labored Respirations
GI: Soft
Neurology: Awake and Alert
Skin: Warm
Labs/Micro/Reports
Laboratory Results
11/11/24 11/11/24 11/12/24
17:34 21:58 02:31
PT 14.7 H 14.2 14.1
INR 1.12 1.06 1.06
APTT 48.2 H 39.9 H 36.4 H
Microbiology
11/08/24 07:15 Urine Urine Culture - Final
NO GROWTH
--- NOTE | 2024-11-12 13:48 | W.PN.CARDCBS ---
Today's Communication / Plan
-
-Cont post op care
-Impella has been removed.
-Heart rate and blood pressure stable.
-Continue to wean IV dobutamine.
-Remains in atrial fibrillation. Continues with IV amiodarone for rate control. Beta-daniella on hold while on dobutamine.
-Eliquis on hold since admission. Status post NENA clip November 08.
Impression / Plan
-
.
PCP: Dayana Dotson
Wood Craftsman: Quinten Pepper
Impression:
Severe Mitral valve regurgitation
s/p mitral valve repair with 34 mm band annuloplasty band 11/08/2024
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
s/p tricuspid repair with 30 mm band annuloplasty band 11/08/2024
Paroxysmal atrial fibrillation
s/p right and left atrial maze (combination of cryo and RF ablation) 11/08/2024
Left atrial appendage clip 45 mm device 11/08/2024, Dr. Osborne
PVCs
h/o TIA
Paroxysmal Atrial fibrillation
Osteoporosis
Supraventricular tachycardia
Heart failure with preserved ejection fraction
Hypernatremia
Cardiac catheterization 10/05/2024: LM: Patent. LAD: Patent. Left circumflex: Patent. RCA: Patent. HEMODYNAMIC FINDINGS (mmHg): LV(s/d,EDP): 115/12, 17; Ao(s/d,m): 115/67, 90. LVG EF 65%, +4 MR
Echo 09/12/2024: EF 50 to 55%. No regional wall motion abnormalities. Mild concentric LVH. Normal RV size and function. Severely dilated left atrium with volume index 57.0 mL/m2. Severe mitral regurgitation with moderate mitral annular
calcification. Moderate tricuspid regurgitation. RVSP 33.3 mmHg.
Intra-op SARAI 11/08/2024: Severe MR with prolapse of P2 with flail segment. Mild to moderate TR. By atrial enlargement. Post operative SARAI status post MV repair with annuloplasty band no paravalvular leak and leaflets functioning appropriately.
Mean gradient 2. Status post TR repair with 30 mm annuloplasty band with residual trace TR, mean gradient 1 mmHg. EF 45%. Status post left atrial appendage exclusion clip well-seated no flow seen into the left atrial appendage. Significant amount
of residual gas/air in left atrium. Moderate to severe RV systolic dysfunction.
Echo 11/08/2024: EF 50-55%, RV top normal size, s/p MV repair with peak/mean gradients across the mitral valve of 6/3 mmHg, respectively, no MR, s/p TV repair with a mean gradient of 1 mmHg, trace TR, normal pericardium without effusion.
Plan:
s/p mitral valve repair, tricuspid valve repair, left and right atrial maze, and NENA clip 11/08/2024 w/ Dr. Osborne
-Intra-op there was concern for micro air emboli w/ episode of VF requiring resuscitation. Post-op SARAI showed significant amount of residual air/gas in L atrium w/ mod to severe RV systolic dysfunction. CI 1.7 w/ SVR <2000, with rising lactate
level, so underwent RP Impella placement via RIJ.
-Cont post op care
-Impella has been removed.
-Heart rate and blood pressure stable.
-Continue to wean IV dobutamine.
-Remains in atrial fibrillation. Continues with IV amiodarone for rate control. Beta-daniella on hold while on dobutamine.
-Eliquis on hold since admission. Status post NENA clip November 08.
-OOB/PT
HPI 11/08/2024: Patient is a 84-year-old female with severe symptomatic mitral valve regurgitation, moderate to severe tricuspid regurgitation, heart failure with preserved ejection fraction, paroxysmal atrial fibrillation on chronic anticoagulation
with Eliquis, history of TIA and migraine headache. Patient developed symptomatic mixed valvular disease and worsening heart failure symptoms requiring diuretic therapy. She underwent cardiac catheterization September 2024 which demonstrated no
significant coronary artery disease. She now presents for elective valve repair of mitral and tricuspid valves as well as maze and left atrial appendage clipping. Cardiology being asked to see patient postoperatively.
Progress Note - Wood Craftsman
Subjective
Date of Service: November 12, 2024
Pt seen and examined. No complaints. No chest pain or shortness of breath.
Objective
Labs:
Labs
Hgb 9.8 g/dL (12.0-16.0) L 11/12/24 12:10
Hct 27.6 % (37.0-47.0) L 11/12/24 12:10
Plt Count 80 10^3/uL (130-400) L 11/12/24 12:10
PT 14.1 Sec (11.4-14.6) 11/12/24 02:31
INR 1.06 11/12/24 02:31
APTT 36.4 Sec (23.4-35.0) H 11/12/24 02:31
Sodium 129 mmol/L (135-145) L 11/12/24 12:10
Potassium 4.5 mmol/L (3.5-5.1) 11/12/24 12:10
BUN 19 mg/dl (7-17) H 11/12/24 12:10
Creatinine 0.7 mg/dL (0.6-1.0) 11/12/24 12:10
Glucose 118 mg/dl (70-99) H 11/12/24 12:10
Vital Signs and I&O:
Vital Signs
Temp Pulse Resp BP Pulse Ox
99.3 F 114 16 111/58 96
11/12/24 13:00 11/12/24 13:00 11/12/24 13:00 11/12/24 12:30 11/12/24 13:00
Vital Signs
Temp Pulse Resp BP Pulse Ox
99.3 F 114 16 111/58 96
11/12/24 13:00 11/12/24 13:00 11/12/24 13:00 11/12/24 12:30 11/12/24 13:00
Intake & Output
11/10/24 11/11/24 11/12/24 11/13/24
06:59 06:59 06:59 06:59
Intake Total 3261.7 / 3261.7 2655.3 / 2700.5 1208.5 / 1236.0 209.0 / 209.0
Output Total 1705 / 1705 800 / 845 525 / 540 190 / 190
Balance 1556.7 / 1556.7 1855.3 / 1855.5 683.5 / 696.0 19.0 / 19.0
Physical Exam
Physical Exam
General: No acute distress, AAOX3
Neck: Negative JVD
Heart: Irregular irregular, Negative S3 positive S1/S2, Negative S4, No murmur
Lungs: CTA b/l, negative wheezes/rales/rhonchi
Abd: Positive BS, NT/ND, neg rebound/rigidity/guarding
Ext: Negative cyanosis/clubbing/edema
Neuro: nonfocal
--- NOTE | 2024-11-12 20:00 | PTCARENOTE ---
Resumed care of pt laying in bed resting comfortably. Pt AAOx3. Pt denies any complaints of pain at this time. Hr in the low 100's in Afib on the monitor. AV pacer wires insulated in place, with temp pacemaker at bedside. POX 96% on RA. Lungs dec at
bases with a light exertional wheeze. Old chest tube sites with dressing intact. + bowel, round abd. Bowel regimen in place. Zee cath in place draining lino urine for critical I/O. Palpable peripheral pulses present. +2 Generalized anasarca
present. Old Right IJ site with dressing intact. Left IJ cordis in place infusing Dobutamine @4mcg/kg/min per MD order, KVO with NSS@10ml/hr infusing. Right AC int removed due to leaking. Left forearm int capped. Sternal incision open to air with
surg glue, sternal precautions maintained. No issues to report at this time. Call florence in reach. Will continue to monitor.
[2024-11-12 20:22] LABS: Hematocrit 27.9 % (37.0-47.0); Hemoglobin 9.8 g/dL (12.0-16.0); Mean Corp Hgb Conc. 35.1 g/dL (33.0-37.0); Mean Corpuscular Hgb 31.6 pg (27.0-31.0); Mean Platelet Volume 10.2 fL (7.4-10.4); Platelet Count 80 10^3/uL (130-400); Red Cell Dist. Width 15.1 % (11.5-14.5); White Blood Cell Count 9.9 10^3/uL (4.8-10.8)
[2024-11-12 20:35] LABS: Blood Urea Nitrogen 19 mg/dl (7-17); Calcium 8.7 mg/dl (8.4-10.2); Carbon Dioxide 24 mmol/L (22-30); Chloride 102 mmol/L (98-107); Estimated Creatinine Clearance 48 ml/min; Glucose 119 mg/dl (70-99); Potassium 4.5 mmol/L (3.5-5.1); Sodium 129 mmol/L (135-145); eGFR > 60.00
[2024-11-13] VITALS (24 sets, daily range): BP systolic 98–132; BP diastolic 50–87; BMI 26.0
--- NOTE | 2024-11-13 | PTCARENOTE ---
Pt continues to rest comfortably. Pt noted to now have occasional moist productive cough. Pt remains on RA with POX 95%. Pt denies any complaints. Vital signs stable. No other changes in assessment noted at this time. Will continue to monitor.
--- NOTE | 2024-11-13 04:03 | W.PN.CT ---
Addendum entered and electronically signed by Dangelo Lester MD 11/13/24 09:16:
I saw and examined the patient.
The PA's note was reviewed and I agree with the note.
Comment:
Wean dobutmine to 3 today and HOLD
D/C wires
Start Eliquis tonight
Hyponatremia improved
Original Note:
Today's Communication / Plan
-
Plan:
-No major issues overnight. Hemodynamically and neurologically intact
-Dobutamine decreased to 4 from 5 mcg/kg/min yesterday
-MVO2 99%
-Impella d/c'd 11/11
-Received 1 {5pk} plts prior to Impella removal for plt of 51, Plts 83 today, up from 72 yesterday, ASA is on hold. Eventual resumption of Eliquis
-Has been in A-fib postop, rate coming down with decrease in Dobutamine
-Wean Dobutamine today, should help with tachycardia/a-fib
-Postop hyponatremia is improving, 131, up from 129 yesterday
-Encourage use of IS
-OOB into chair/Ambulate
Assessment / Plan
-
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
maze [combination of RF and cryoablation]; Left atrial appendage exclusion [45 mm clip] on 11/08/[address] Osborne, pod #5
- s/p Successful placement of an Impella RP flex via the right internal jugular vein on 11/08/[address] Camejo
- Intraop SARAI: LVEF preop was 55% with no significant regional wma. She does have a history of cardiomyopathy with mildly dilated right and left ventricles. Her left atrium and right atrium are also dilated. Following surgery EF did reduce to
+45% and she had some septal inferior wall hypokinesis with dyskinesia. The lateral wall was moving appropriately. Her right ventricle did appear to be mild to mild to moderately depressed after valve repair. At the conclusion of the case off
cardiopulmonary bypass there was no residual mitral valve insufficiency and no residual tricuspid valve insufficiency. The mean gradient across the mitral valve was 2 mmHg and the mean gradient across tricuspid valve was 1 mmHg. She did have
significant PACs conclusion of the case and required defibrillation x 2 likely secondary to air entrainment down the coronary. Follow-up transesophageal echocardiogram demonstrated that there was still residual air coming out of her pulmonary veins
and sitting in her left atrium.
- Degenerative mitral valve disease with severe insufficiency, type II pathology with some component of type I pathology
- Functional tricuspid valve insufficiency
- PVCs
- TIA
- Atrial fibrillation
- Osteoporosis
- Supraventricular tachycardia
- CHF, significant volume overload
- Acute postop blood loss anemia - s/p 1 pRBC on 11/08
- Acute postop thrombocytopenia - s/p 1 unit platelet on 11/09
- Acute postop hypovolemia with subsequent hypervolemia
- Acute postop atelectasis
Discussed patient care with: Cardiology, Nursing, Respiratory Therapy, Pharmacy and Care Team
Subjective
-
Date of Service: November 13, 2024
Pt c/o mild incisional pain, otherwise feels well
Objective Data
-
PT 14.1 Sec (11.4-14.6) 11/12/24 02:31
INR 1.06 11/12/24 02:31
APTT 36.4 Sec (23.4-35.0) H 11/12/24 02:31
Vital Signs
Vital Signs
Temp Pulse Resp BP Pulse Ox
98.6 F 123 16 110/57 96
11/12/24 20:16 11/13/24 02:00 11/13/24 02:00 11/13/24 02:00 11/13/24 02:00
CT Intake/Output/Weight
11/12/24 11/12/24 11/13/24
06:59 18:59 06:59
Intake Total 457.5 / 1236.0 845.0 / 1053.0 208 / 1053.0
Output Total 220 / 540 425 / 675 250 / 675
Balance 237.5 / 696.0 420.0 / 378.0 -42 / 378.0
SaO2: 96 (RA)
Physical Exam
-
General: Awake, Oriented and AOx3
Cardiovascular: Irregular rate & rhythm, No Murmurs, No Rub and No Gallop
Respiratory: Decreased Breath Sounds (at bases, otherwise clear)
Sternum: Stable
Incision: Clean, Dry, Intact and Dressing Intact
Extremities: Edema +1
Data Reviewed
-
Lab Results: Results Reviewed
Medications: Active Meds Reviewed
Chest X-Ray: Report Reviewed and Image Reviewed
ECG: Report Reviewed and Image Reviewed
--- NOTE | 2024-11-13 04:30 | PTCARENOTE ---
Pt resting comfortably. AM lab work obtained. Pt repositioned per comfort. Will allow pt to rest another hour before getting OOB to chair. Pt denies any complaints will continue to monitor.
[2024-11-13 04:57] LABS: Mixed Venous O2 Saturation 99.6 %
[2024-11-13 05:00] LABS: Ionized Calcium 1.21 mMOL/L (1.15-1.33)
[2024-11-13 05:13] LABS: Hemoglobin 9.7 g/dL (12.0-16.0); Mean Corp Hgb Conc. 34.6 g/dL (33.0-37.0); Mean Corpuscular Hgb 31.4 pg (27.0-31.0); Mean Corpuscular Volume 90.6 fL (81.0-99.0); Mean Platelet Volume 10.6 fL (7.4-10.4); Platelet Count 83 10^3/uL (130-400); Red Blood Cell Count 3.09 10^6/uL (4.20-5.40); White Blood Cell Count 7.8 10^3/uL (4.8-10.8)
[2024-11-13 05:31] LABS: Magnesium 2.2 mg/dl (1.6-2.3)
[2024-11-13 05:32] LABS: Blood Urea Nitrogen 19 mg/dl (7-17); Carbon Dioxide 27 mmol/L (22-30); Chloride 102 mmol/L (98-107); Estimated Creatinine Clearance 48 ml/min; Glucose 112 mg/dl (70-99); Potassium 4.6 mmol/L (3.5-5.1); Sodium 131 mmol/L (135-145); eGFR > 60.00
--- NOTE | 2024-11-13 05:59 | PTCARENOTE ---
PT OOB to chair. Pt tolerated well. No issues to report. Vital signs stable. Pt remains in Afib with HR 100-120's with activity. Dobutamine gtt continues to infuse @4mcg/kg/min. Call florence in reach. Will continue to monitor.
[2024-11-13] MEDS: TYLENOL 1000 MG PO ×2 (06:04→20:54)
[2024-11-13 07:23] LABS: ALT (SGPT) 28 U/L (0-35); AST (SGOT) 36 U/L (14-36); Albumin 3.4 g/dl (3.5-5.0); Alkaline Phosphatase 69 U/L (38-126); Direct Bilirubin 0.5 mg/dl (0.0-0.4); Total Bilirubin 1.9 mg/dl (0.2-1.3); Total Protein 5.1 g/dl (6.3-8.2)
[2024-11-13 08:15] LABS: Lactic Acid 0.9 mmol/L (0.7-2.0)
[2024-11-13 08:21] LABS: INR 0.96; PT 13.1 Sec (11.4-14.6)
[2024-11-13 08:22] LABS: APTT 32.1 Sec (23.4-35.0)
--- NOTE | 2024-11-13 08:30 | PTCARENOTE ---
recieved PT from night time babysitter RN. PT aaox4 w/o complaints of pain. afib on the monitor dobut @4, A&V wires insulated VSS; RA 98% on monitor; GI and wnl; all surgical incisions CDI; L IJC & IV wnl; see worklist for detailed assessment
[2024-11-13] MEDS: LASIX 10 MG IV (09:33)
[2024-11-13] MEDS: NEURONTIN 100 MG PO ×3 (09:34→20:55)
[2024-11-13] MEDS: VITAMIN D3 (cholecalciferol) 25 MCG PO (09:34)
[2024-11-13] MEDS: VITAMIN C 500 MG PO (09:34)
[2024-11-13] MEDS: OSCAL CAL 500 1000 MG PO ×2 (09:34→20:55)
[2024-11-13] MEDS: THERAGRAN 1 TABLET PO (09:34)
[2024-11-13] MEDS: MAGNESIUM OXIDE 500 MG PO ×2 (09:34→20:54)
[2024-11-13] MEDS: LOW STRENGTH ASPIRIN 81 MG PO (09:34)
[2024-11-13] MEDS: PACERONE 200 MG PO ×3 (09:34→20:55)
[2024-11-13] MEDS: SENOKOT-S 1 TABLET PO ×2 (09:34→20:54)
[2024-11-13] MEDS: ZINC 50 MG PO (09:34)
[2024-11-13] MEDS: PROTONIX 40 MG PO (09:35)
--- NOTE | 2024-11-13 10:12 | W.PN.CARDCBS ---
Today's Communication / Plan
-
-Cont to wean off IV Dobutamine
-Heart rate and blood pressure stable. wires d/c'd
-Remains in atrial fibrillation. Continues with IV amiodarone for rate control. Beta-daniella on hold while on dobutamine.
-Eliquis on hold since admission and being resumed PM November 13.
Impression / Plan
-
.
PCP: Dayana Dotson
Screedman/Laborer: Quinten Pepper
Impression:
Severe Mitral valve regurgitation
s/p mitral valve repair with 34 mm band annuloplasty band 11/08/2024
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
s/p tricuspid repair with 30 mm band annuloplasty band 11/08/2024
Paroxysmal atrial fibrillation
s/p right and left atrial maze (combination of cryo and RF ablation) 11/08/2024
Left atrial appendage clip 45 mm device 11/08/2024, Dr. Osborne
PVCs
h/o TIA
Paroxysmal Atrial fibrillation
Osteoporosis
Supraventricular tachycardia
Heart failure with preserved ejection fraction
Hypernatremia
Cardiac catheterization 10/05/2024: LM: Patent. LAD: Patent. Left circumflex: Patent. RCA: Patent. HEMODYNAMIC FINDINGS (mmHg): LV(s/d,EDP): 115/12, 17; Ao(s/d,m): 115/67, 90. LVG EF 65%, +4 MR
Echo 09/12/2024: EF 50 to 55%. No regional wall motion abnormalities. Mild concentric LVH. Normal RV size and function. Severely dilated left atrium with volume index 57.0 mL/m2. Severe mitral regurgitation with moderate mitral annular
calcification. Moderate tricuspid regurgitation. RVSP 33.3 mmHg.
Intra-op SARAI 11/08/2024: Severe MR with prolapse of P2 with flail segment. Mild to moderate TR. By atrial enlargement. Post operative SARAI status post MV repair with annuloplasty band no paravalvular leak and leaflets functioning appropriately.
Mean gradient 2. Status post TR repair with 30 mm annuloplasty band with residual trace TR, mean gradient 1 mmHg. EF 45%. Status post left atrial appendage exclusion clip well-seated no flow seen into the left atrial appendage. Significant amount
of residual gas/air in left atrium. Moderate to severe RV systolic dysfunction.
Echo 11/08/2024: EF 50-55%, RV top normal size, s/p MV repair with peak/mean gradients across the mitral valve of 6/3 mmHg, respectively, no MR, s/p TV repair with a mean gradient of 1 mmHg, trace TR, normal pericardium without effusion.
Plan:
s/p mitral valve repair, tricuspid valve repair, left and right atrial maze, and NENA clip 11/08/2024 w/ Dr. Osborne
-Intra-op there was concern for micro air emboli w/ episode of VF requiring resuscitation. Post-op SARAI showed significant amount of residual air/gas in L atrium w/ mod to severe RV systolic dysfunction. CI 1.7 w/ SVR <2000, with rising lactate
level, so underwent RP Impella placement via RIJ.
-Cont post op care
-Cont to wean off IV Dobutamine
-Heart rate and blood pressure stable. wires d/c'd
-Remains in atrial fibrillation. Continues with IV amiodarone for rate control. Beta-daniella on hold while on dobutamine.
-Eliquis on hold since admission and being resumed PM November 13.
Status post NENA clip November 08.
-OOB/PT
-Discussed with nursing
HPI 11/08/2024: Patient is a 84-year-old female with severe symptomatic mitral valve regurgitation, moderate to severe tricuspid regurgitation, heart failure with preserved ejection fraction, paroxysmal atrial fibrillation on chronic anticoagulation
with Eliquis, history of TIA and migraine headache. Patient developed symptomatic mixed valvular disease and worsening heart failure symptoms requiring diuretic therapy. She underwent cardiac catheterization September 2024 which demonstrated no
significant coronary artery disease. She now presents for elective valve repair of mitral and tricuspid valves as well as maze and left atrial appendage clipping. Cardiology being asked to see patient postoperatively.
Progress Note - Screedman/Laborer
Subjective
Date of Service: November 13, 2024
Pt seen and examined. No cp or dyspnea
Objective
Labs:
11/13/24 12:00
11/13/24 12:00
Labs
Hgb Cancelled 11/13/24 12:00
Hct Cancelled 11/13/24 12:00
Plt Count Cancelled 11/13/24 12:00
PT 13.1 Sec (11.4-14.6) 11/13/24 07:55
INR 0.96 11/13/24 07:55
APTT 32.1 Sec (23.4-35.0) 11/13/24 07:55
Sodium Cancelled 11/13/24 12:00
Potassium Cancelled 11/13/24 12:00
BUN Cancelled 11/13/24 12:00
Creatinine Cancelled 11/13/24 12:00
Glucose Cancelled 11/13/24 12:00
Vital Signs and I&O:
Vital Signs
Temp Pulse Resp BP Pulse Ox
98.7 F 116 23 131/72 96
11/13/24 04:00 11/13/24 06:00 11/13/24 06:00 11/13/24 06:00 11/13/24 06:00
Vital Signs
Temp Pulse Resp BP Pulse Ox
98.7 F 116 23 131/72 96
11/13/24 04:00 11/13/24 06:00 11/13/24 06:00 11/13/24 06:00 11/13/24 06:00
Intake & Output
11/11/24 11/12/24 11/13/24 11/14/24
06:59 06:59 06:59 06:59
Intake Total 2655.3 / 2700.5 1208.5 / 1236.0 1157.0 / 1183.0 78 / 78
Output Total 800 / 845 525 / 540 850 / 870 55 / 55
Balance 1855.3 / 1855.5 683.5 / 696.0 307.0 / 313.0
Physical Exam
Physical Exam
General: No acute distress, AAOX3
Neck: Negative JVD
Heart: Irregularly irregular, Negative S3 positive S1/S2, Negative S4, No murmur
Lungs: CTA b/l, negative wheezes/rales/rhonchi
Abd: Positive BS, NT/ND, neg rebound/rigidity/guarding
Ext: Negative cyanosis/clubbing/edema
Neuro: nonfocal
--- NOTE | 2024-11-13 12:30 | PTCARENOTE ---
A&V wires removed with PA; Dobutamine decreased to 3ml/Hr; CVP attached to cordis
--- NOTE | 2024-11-13 13:02 | W.PN.INTV ---
Today's Communication / Plan
Recommendations
- Wean Dobutamine as tolerated
- Diurese as tolerated
Assessment
-
Patient is a very pleasant 84-year-old female with known history of severe mitral regurgitation and tricuspid regurgitation with resultant heart failure with preserved ejection fraction and worsening dyspnea. She had a coronary angiogram performed
in September 2024 which was negative for any significant coronary artery disease. Patient subsequently was seen by CT surgery and was admitted for an elective mitral valve and tricuspid valve repair. She had the above procedure performed on 11/08/2024
along with right and left atrial maze procedure. At the separation from heart-lung machine, paradoxical septal wall motion was noted with brief episode of V-fib necessitating resuscitation suspected due to micro air emboli. SARAI showed significant
amount of residual air/gas in the left atrium along with moderate to severe right ventricular systolic dysfunction. Patient subsequently was brought to CVICU. She developed rising lactate level and cardiogenic shock and a 2D echo cardiogram showed
significantly worse RV function. Patient was taken to Labor Representative and had RP Impella placed for right ventricular support. Subsequently lactate has improved. Patient has been successfully extubated since and is doing well. Advertising Strategist consultation
was requested for further input.
S/p left and right atrial maze procedure, left atrial appendage exclusion, radical mitral valve repair, tricuspid valve repair POD #5
11/08/2024, Post-op, Acute RV dysfunction, S/p RP Impella (pRVAD), removed 11/11
Titrate off pressors per protocol, Impella removed, Dobutamine @3 now, off heparin now
Blood pressure MAP 80. Noted to be in A fib with RVR 113/min
ECHO reviewed, 11/08, severely reduced RV systolic function. Normal LVEF
Chest tube removed, 11/11
Extubated, currently on RA, mid 's. Work of breathing normal
CXR with no obvious opacities/infiltrates, ?trace pleural effusions.
No prior history of pulmonary disease
Can add nebulizers if needed
Aspiration precautions
Encouraged incentive spirometry, OOB/ambulation/early mobility
Advance diet as tolerated following extubation
GI prophylaxis: Pantoprazole
Monitor critical I/O's
Zee/chest tube output
Hemoglobin 9.8, platelet at 80K.
LDH 709 > 557 > 476 > 352
Trend CBC for now
#1. Severe symptomatic Mitral valve regurgitation, moderate to severe TR. s/p MV and TV repair (11/08/2024)
#2. Post-op Acute RV dysfunction and cardiogenic shock. s/p RP Impella placed (11/08/2024), Dobutamine down to 3 now, Impella removed 11/11
#3. HFpEF, due to MR and TR. CXR without pulmonary edema today. s/p Albumin IV. Also received lasix
#4. Paroxysmal A Fib with RVR. Off Heparin now. PO Amiodarone resumed.
#5. H/o TIA. On aspirin
#6. Thrombocytopenia. Fibrinogen normal, D-dimer elevated. Platelet count improving
Critical Care time 39 mins -- The patient is admitted for acute critical illness for the treatment of vital organ failure and/or prevention of further life-threatening conditions. Total care includes time spent in review of history, physical exam,
medications, hemodynamic/ventilator parameters, laboratory data, imaging and discussion with house staff, pharmacy, respiratory therapy, government affairs researcher, and nursing.
Data:
ECHO 10/2024: Normal left ventricular size, wall thickness and systolic function. No regional
wall motion abnormalities are seen. LV ejection fraction is 50-55% by visual
assessment.
Severely reduced right ventricular systolic function. Right ventricle is top
normal in size.
Mitral valve repair with peak/mean gradients across the mitral valve of 6/3
mmHg, respectively. No mitral regurgitation is seen.
Tricuspid valve repair with a mean gradient of 1 mmHg. Trace tricuspid
regurgitation.
Normal pericardium without effusion.
Compared to transesophageal echo dated 10/20/2024: mitral and tricuspid valves
have been repaired; right ventricular systolic function is severely reduced and
was previously normal.
CT Chest/Abd/Pelvis: 10/2024: 1. No aortic aneurysm or dissection.
2. Mild coronary artery calcifications. Minimal atherosclerotic calcifications.
3. Trace right pleural effusion.
Cardiac Cath 09/2024: 1: Normal coronary arteries.
2: Severe mitral regurgitation with preserved LV systolic function.
Subjective Dataa
Subjective Data
Date of Service:
Date of Service: November 13, 2024
Subjective:
Comfortably sitting in chair, no acute distress
Review of Systems
Genitourinary: Other (No new symptoms reported )
Objective Data
Data Reviewed
Vital Signs / I&O / Oxygen:
Vital Signs
Temp Pulse Resp BP Pulse Ox
98.2 F 118 19 101/61 96
11/13/24 10:00 11/13/24 11:00 11/13/24 11:00 11/13/24 11:00 11/13/24 08:15
Intake and Output
11/12/24 11/13/24 11/14/24
06:59 06:59 06:59
Intake Total 1208.5 / 1236.0 1157.0 / 1183.0 127.0 / 127.0
Output Total 525 / 540 850 / 870 210 / 210
Balance 683.5 / 696.0 307.0 / 313.0 -83.0 / -83.0
SaO2 [SIMV] 100
SaO2 96
Nasal Cannula flow liters per 97
minute
Physical Exam
General: Comfortable
HEENT: Normocephalic
Cardiovascular: S1-S2 and Peripheral Edema
Respiratory: Clear and Non-Labored Respirations
GI: Soft
Neurology: Awake and Alert
Skin: Warm
Labs/Micro/Reports
Lab Data
11/13/24 12:00
11/13/24 12:00
Laboratory Results
11/13/24
07:55
PT 13.1
INR 0.96
APTT 32.1
[2024-11-13] MEDS: TYLENOL PO (16:17)
[2024-11-13] MEDS: NSS IV (16:18)
--- NOTE | 2024-11-13 17:52 | PTCARENOTE ---
no change from previous assessment; see worklist for detailed assessment
--- NOTE | 2024-11-13 20:32 | PTCARENOTE ---
assumed care of patient @ 1900. received pt laying in bed, Aox3. Afib on tele HRs 100-120s. BP 100s/70s. CVP ~ 12. + 2 generalized edema. Lungs clear on room air. +BS, had BM yesterday. boogie present draining lino colored urine. Sternal HOTEL RECREATIONAL FACILITIES MANAGER with
glue. L IJ cordis with SLIC present, PIV present. Dobut running at 3. pt resting comfortably in bed with call florence within reach .
[2024-11-13] MEDS: ELIQUIS 5 MG PO (20:55)
[2024-11-14] VITALS (28 sets, daily range): BP systolic 71–147; BP diastolic 51–104; PULSE 106–118; BMI 26.2
--- NOTE | 2024-11-14 03:53 | W.PN.CT ---
Addendum entered and electronically signed by Dangelo Lester MD 11/14/24 09:21:
I saw and examined the patient.
The PA's note was reviewed and I agree with the note.
Comment:
Dobutamine to 2
Lasix 20mg x 1 today
OOB/IS/ambulate
Hgb 9.4 - follow
Original Note:
Today's Communication / Plan
-
Plan:
-No major issues overnight. Hemodynamically and neurologically intact
-Dobutamine weaned to 3 from 4 mcg/kg/min yesterday
-MVO2 66.3%
-Impella d/c'd 11/11
-Received 1 {5pk} plts prior to Impella removal for plt of 51, Plts 86 today, up from 83 yesterday, resumed ASA and Eliquis yesterday 11/13
-Has been in A-fib postop, rate coming down with decrease in Dobutamine
-Wean Dobutamine today, should help with tachycardia/a-fib
-Monitor postop hyponatremia 130, was 131 yesterday, cont. with gentle diuresis
-Encourage use of IS
-OOB into chair/Ambulate
-Will consult PT/OT
Assessment / Plan
-
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
maze [combination of RF and cryoablation]; Left atrial appendage exclusion [45 mm clip] on 11/08/[address] Osborne, pod #6
- s/p Successful placement of an Impella RP flex via the right internal jugular vein on 11/08/[address] Camejo
- Intraop SARAI: LVEF preop was 55% with no significant regional wma. She does have a history of cardiomyopathy with mildly dilated right and left ventricles. Her left atrium and right atrium are also dilated. Following surgery EF did reduce to
+45% and she had some septal inferior wall hypokinesis with dyskinesia. The lateral wall was moving appropriately. Her right ventricle did appear to be mild to mild to moderately depressed after valve repair. At the conclusion of the case off
cardiopulmonary bypass there was no residual mitral valve insufficiency and no residual tricuspid valve insufficiency. The mean gradient across the mitral valve was 2 mmHg and the mean gradient across tricuspid valve was 1 mmHg. She did have
significant PACs conclusion of the case and required defibrillation x 2 likely secondary to air entrainment down the coronary. Follow-up transesophageal echocardiogram demonstrated that there was still residual air coming out of her pulmonary veins
and sitting in her left atrium.
- Degenerative mitral valve disease with severe insufficiency, type II pathology with some component of type I pathology
- Functional tricuspid valve insufficiency
- PVCs
- TIA
- Atrial fibrillation
- Osteoporosis
- Supraventricular tachycardia
- CHF, significant volume overload
- Acute postop blood loss anemia - s/p 1 pRBC on 11/08
- Acute postop thrombocytopenia - s/p 1 unit platelet on 11/09
- Acute postop hypovolemia with subsequent hypervolemia
- Acute postop atelectasis
Discussed patient care with: Cardiology, Nursing, Respiratory Therapy, Pharmacy and Care Team
Subjective
-
Date of Service: November 14, 2024
Pt c/o mild incisional pain, insomnia and mild weakness
Objective Data
-
PT 13.1 Sec (11.4-14.6) 11/13/24 07:55
INR 0.96 11/13/24 07:55
APTT 32.1 Sec (23.4-35.0) 11/13/24 07:55
Vital Signs
Vital Signs
Temp Pulse Resp BP Pulse Ox
98.2 F 98 22 119/51 97
11/13/24 20:00 11/14/24 00:45 11/14/24 00:45 11/14/24 00:00 11/14/24 00:45
CT Intake/Output/Weight
11/13/24 11/13/24 11/14/24
06:59 18:59 06:59
Intake Total 312 / 1183.0 278.5 / 365.5 87.0 / 365.5
Output Total 425 / 870 590 / 770 180 / 770
Balance -113 / 313.0 -311.5 / -404.5 -93.0 / -404.5
SaO2: 97 (RA)
Physical Exam
-
General: Awake, Oriented and AOx3
Cardiovascular: Irregular rate & rhythm, No Murmurs, No Rub and No Gallop
Respiratory: Decreased Breath Sounds (at bases, otherwise clear)
Sternum: Stable
Incision: Clean, Dry, Intact and Dressing Intact
Extremities: Edema +1
Data Reviewed
-
Lab Results: Results Reviewed
Medications: Active Meds Reviewed
Chest X-Ray: Report Reviewed and Image Reviewed
ECG: Report Reviewed and Image Reviewed
[2024-11-14 03:55] LABS: Mixed Venous O2 Saturation 66.3 %
--- NOTE | 2024-11-14 04:00 | PTCARENOTE ---
pt had large BM on commode. chest tube dressings draining serosang fluid, CT dressing changed. now back in bed resting comfortably. labs drawn and sent, no change in assessment .
[2024-11-14 04:26] LABS: Hematocrit 27.4 % (37.0-47.0); Hemoglobin 9.4 g/dL (12.0-16.0); Mean Corp Hgb Conc. 34.3 g/dL (33.0-37.0); Mean Corpuscular Hgb 31.1 pg (27.0-31.0); Mean Corpuscular Volume 90.7 fL (81.0-99.0); Mean Platelet Volume 10.3 fL (7.4-10.4); Platelet Count 86 10^3/uL (130-400); Red Blood Cell Count 3.02 10^6/uL (4.20-5.40); Red Cell Dist. Width 15.2 % (11.5-14.5); White Blood Cell Count 8.1 10^3/uL (4.8-10.8)
[2024-11-14 04:34] LABS: Lactic Acid 1.1 mmol/L (0.7-2.0)
[2024-11-14 04:51] LABS: ALT (SGPT) 25 U/L (0-35); AST (SGOT) 29 U/L (14-36); Albumin 3.1 g/dl (3.5-5.0); Alkaline Phosphatase 68 U/L (38-126); Blood Urea Nitrogen 22 mg/dl (7-17); Calcium 8.3 mg/dl (8.4-10.2); Carbon Dioxide 25 mmol/L (22-30); Chloride 103 mmol/L (98-107); Direct Bilirubin 0.4 mg/dl (0.0-0.4); Estimated Creatinine Clearance 49 ml/min; Glucose 118 mg/dl (70-99); Magnesium 2.1 mg/dl (1.6-2.3); Potassium 4.3 mmol/L (3.5-5.1); Sodium 130 mmol/L (135-145); Total Bilirubin 1.6 mg/dl (0.2-1.3); Total Protein 4.9 g/dl (6.3-8.2); eGFR > 60.00
[2024-11-14] MEDS: DOBUTREX 500 MG 250 IV (06:02)
[2024-11-14] MEDS: SENOKOT-S 1 TABLET PO ×2 (07:39→20:22)
[2024-11-14] MEDS: VITAMIN C 500 MG PO (07:39)
[2024-11-14] MEDS: NEURONTIN 100 MG PO ×3 (07:39→21:35)
[2024-11-14] MEDS: THERAGRAN 1 TABLET PO (07:39)
[2024-11-14] MEDS: PACERONE 200 MG PO ×3 (07:39→21:35)
[2024-11-14] MEDS: ELIQUIS 5 MG PO ×2 (07:39→20:22)
[2024-11-14] MEDS: PROTONIX 40 MG PO (07:39)
[2024-11-14] MEDS: MAGNESIUM OXIDE 500 MG PO ×2 (07:39→20:23)
[2024-11-14] MEDS: ZINC 50 MG PO (07:39)
[2024-11-14] MEDS: LOW STRENGTH ASPIRIN 81 MG PO (07:40)
[2024-11-14] MEDS: VITAMIN D3 (cholecalciferol) 25 MCG PO (07:40)
[2024-11-14] MEDS: TYLENOL 1000 MG PO ×2 (07:40→16:38)
[2024-11-14] MEDS: OSCAL CAL 500 1000 MG PO ×2 (07:40→20:23)
[2024-11-14] MEDS: LASIX 20 MG IV (08:23)
[2024-11-14] MEDS: CORDARONE 103 MG IV (08:24)
--- NOTE | 2024-11-14 08:30 | PTCARENOTE ---
received PT from nightshift RN; PT AAOx4 w/o complaints of pain; PT ambulated to chair w/ assistance of RN; afib on the monitor VSS; RA 98% O2, clear lung sounds; GI wnl; boogie in place, lasix given; sternum incision CDI; RIJC and IV CDI; see
worklist for detailed assessment
--- NOTE | 2024-11-14 13:12 | W.PN.INTV ---
Today's Communication / Plan
Recommendations
- Wean dobutamine as tolerated
- Continue diuresis
Assessment
-
Patient is a very pleasant 84-year-old female with known history of severe mitral regurgitation and tricuspid regurgitation with resultant heart failure with preserved ejection fraction and worsening dyspnea. She had a coronary angiogram performed
in September 2024 which was negative for any significant coronary artery disease. Patient subsequently was seen by CT surgery and was admitted for an elective mitral valve and tricuspid valve repair. She had the above procedure performed on 11/08/2024
along with right and left atrial maze procedure. At the separation from heart-lung machine, paradoxical septal wall motion was noted with brief episode of V-fib necessitating resuscitation suspected due to micro air emboli. SARAI showed significant
amount of residual air/gas in the left atrium along with moderate to severe right ventricular systolic dysfunction. Patient subsequently was brought to CVICU. She developed rising lactate level and cardiogenic shock and a 2D echo cardiogram showed
significantly worse RV function. Patient was taken to [facility] and had RP Impella placed for right ventricular support. Subsequently lactate has improved. Patient has been successfully extubated since and is doing well. Chucking And Sawing Machine Operator consultation
was requested for further input.
S/p left and right atrial maze procedure, left atrial appendage exclusion, radical mitral valve repair, tricuspid valve repair POD #6
11/08/2024, Post-op, Acute RV dysfunction, S/p RP Impella (pRVAD), removed 11/11
Titrate off pressors per protocol, Impella removed, Dobutamine @2 now, off heparin now
Blood pressure 72, patient noted to be in atrial fibrillation, rate controlled, mid 90s to 100/min.
ECHO reviewed, 11/08, severely reduced RV systolic function. Normal LVEF
Chest tube removed, 11/11
Extubated, currently on RA, mid 90's. Work of breathing normal
CXR with no obvious opacities/infiltrates, ?trace pleural effusions.
No prior history of pulmonary disease
Can add nebulizers if needed
Aspiration precautions
Encouraged incentive spirometry, OOB/ambulation/early mobility
Advance diet as tolerated following extubation
GI prophylaxis: Pantoprazole
Monitor critical I/O's
Zee/chest tube output
Hemoglobin 9.4, platelet at 86K.
LDH 709 > 557 > 476 > 352
Trend CBC for now
#1. Severe symptomatic Mitral valve regurgitation, moderate to severe TR. s/p MV and TV repair (11/08/2024)
#2. Post-op Acute RV dysfunction and cardiogenic shock. s/p RP Impella placed (11/08/2024), Dobutamine down to 2 now, Impella removed 11/11
#3. HFpEF, due to MR and TR. CXR without pulmonary edema today. s/p Albumin IV. Also received lasix. -389 ml
#4. Paroxysmal A Fib with RVR. Off Heparin now. PO Amiodarone resumed. rate controlled. PO Eliquis.
#5. H/o TIA. On aspirin
#6. Thrombocytopenia. Fibrinogen normal, D-dimer elevated. Platelet count improving
Critical Care time 42 mins -- The patient is admitted for acute critical illness for the treatment of vital organ failure and/or prevention of further life-threatening conditions. Total care includes time spent in review of history, physical exam,
medications, hemodynamic/ventilator parameters, laboratory data, imaging and discussion with house staff, pharmacy, respiratory therapy, clinic clerk, and nursing.
Data:
ECHO 10/2024: Normal left ventricular size, wall thickness and systolic function. No regional
wall motion abnormalities are seen. LV ejection fraction is 50-55% by visual
assessment.
Severely reduced right ventricular systolic function. Right ventricle is top
normal in size.
Mitral valve repair with peak/mean gradients across the mitral valve of 6/3
mmHg, respectively. No mitral regurgitation is seen.
Tricuspid valve repair with a mean gradient of 1 mmHg. Trace tricuspid
regurgitation.
Normal pericardium without effusion.
Compared to transesophageal echo dated 10/20/2024: mitral and tricuspid valves
have been repaired; right ventricular systolic function is severely reduced and
was previously normal.
CT Chest/Abd/Pelvis: 10/2024: 1. No aortic aneurysm or dissection.
2. Mild coronary artery calcifications. Minimal atherosclerotic calcifications.
3. Trace right pleural effusion.
Cardiac Cath 09/2024: 1: Normal coronary arteries.
2: Severe mitral regurgitation with preserved LV systolic function.
Subjective Dataa
Subjective Data
Date of Service:
Date of Service: November 14, 2024
Subjective:
Patient comfortably sitting in chair, no acute distress.
Review of Systems
Genitourinary: Other (All 14 systems reviewed and negative except as stated above in the history of present illness. Pedal edema resolving)
Objective Data
Data Reviewed
Vital Signs / I&O / Oxygen:
Vital Signs
Temp Pulse Resp BP Pulse Ox
98 F 99 18 87/63 98
11/14/24 08:00 11/14/24 10:00 11/14/24 10:00 11/14/24 10:00 11/14/24 08:56
Intake and Output
11/13/24 11/14/24 11/15/24
06:59 06:59 06:59
Intake Total 1157.0 / 1183.0 452.5 / 467.0 54.0 / 54.0
Output Total 850 / 870 860 / 880 190 / 190
Balance 307.0 / 313.0 -407.5 / -413.0 -136.0 / -136.0
SaO2 [SIMV] 100
SaO2 98
Nasal Cannula flow liters per 97
minute
Physical Exam
General: Comfortable
HEENT: Normocephalic
Cardiovascular: S1-S2 and Peripheral Edema (Improving)
Respiratory: Clear and Non-Labored Respirations
GI: Soft
Neurology: Awake and Alert
Skin: Warm
Labs/Micro/Reports
Lab Data
11/14/24 03:45
11/14/24 03:45
[2024-11-14] MEDS: TYLENOL PO (15:01)
[2024-11-14] MEDS: NSS 500 IV (16:40)
--- NOTE | 2024-11-14 20:00 | PTCARENOTE ---
Assumed care of patient at 1900. Patient found oob in chair at time of assessment. Patient is AOx4, follows commands appropriately, moves all extremities. Lung sounds are diminished in the bases, saO2 95% on RA. Heart sounds are audible, patient is
in afib on the monitor HR 100s-120, patient has normal palpable radial and weak but palpable dorsalis pedis pulses. Patient is clearly edematous on observation there is trace generalized anasarca present, +1 edema in the R hand, trace in the L hand,
and +1 BLE edema. Antiembolic stockings in place. Patient has active BS, reports +BM yesterday, there is an indwelling urinary catheter draining clear lino urine. Patient has L IJ cordis receiving KVO and dobut@2 as well as L FA 20G. Patient has
sternal incision approx with surg adhesive LUDWIG. ABD dressing over CT wounds saturated with moderate serosanguineous drainage. Dressing changed. There is some soft nontender bruising present over the L hip. No c/o pain. Call florence within reach.
[2024-11-14] MEDS: MELATONIN 5 MG PO (21:35)
[2024-11-15] VITALS (22 sets, daily range): BP systolic 99–133; BP diastolic 49–93; PULSE 108; O2SAT 94; BMI 26.5
[2024-11-15] MEDS: MUCINEX 600 MG PO ×3 (01:33→19:29)
--- NOTE | 2024-11-15 01:46 | PTCARENOTE ---
Patient reassessed. Hygiene care provided to patient upon return to bed. Patient tolerated ambulation with RW. Patient with frequent harsh somewhat productive cough overnight. Orders received for administration of mucinex. Patient reports hearing
someone singing 'like a chorus'. Assured by this RN that no one was singing outside her room. Patient answered all orientation questions appropriately upon assessment. Remains in Afib on the monitor.
[2024-11-15 03:49] LABS: Mixed Venous O2 Saturation 71.1 %
--- NOTE | 2024-11-15 04:13 | W.PN.CT ---
Today's Communication / Plan
-
Plan:
-No major issues overnight. Hemodynamically and neurologically intact
-Dobutamine weaned to 2 from 3 mcg/kg/min yesterday. Wean cont. to wean as tolerated
-MVO2 71.1%
-Impella d/c'd 11/11
-Received 1 {5pk} plts prior to Impella removal for plt of 51, Plts 92 today, up from 86 yesterday, resumed ASA and Eliquis 11/13
-Has been in A-fib postop, rate coming down with decrease in Dobutamine
-Monitor postop hyponatremia 130, was 131 yesterday, cont. with gentle diuresis
-Encourage use of IS
-OOB into chair/Ambulate
-PT/OT F/U
-Eventual acute rehab placement per PT/OT
Assessment / Plan
-
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
maze [combination of RF and cryoablation]; Left atrial appendage exclusion [45 mm clip] on 11/08/[address] Osborne, pod #7
- s/p Successful placement of an Impella RP flex via the right internal jugular vein on 11/08/[address] Camejo
- Intraop SARAI: LVEF preop was 55% with no significant regional wma. She does have a history of cardiomyopathy with mildly dilated right and left ventricles. Her left atrium and right atrium are also dilated. Following surgery EF did reduce to
+45% and she had some septal inferior wall hypokinesis with dyskinesia. The lateral wall was moving appropriately. Her right ventricle did appear to be mild to mild to moderately depressed after valve repair. At the conclusion of the case off
cardiopulmonary bypass there was no residual mitral valve insufficiency and no residual tricuspid valve insufficiency. The mean gradient across the mitral valve was 2 mmHg and the mean gradient across tricuspid valve was 1 mmHg. She did have
significant PACs conclusion of the case and required defibrillation x 2 likely secondary to air entrainment down the coronary. Follow-up transesophageal echocardiogram demonstrated that there was still residual air coming out of her pulmonary veins
and sitting in her left atrium.
- Degenerative mitral valve disease with severe insufficiency, type II pathology with some component of type I pathology
- Functional tricuspid valve insufficiency
- PVCs
- TIA
- Atrial fibrillation
- Osteoporosis
- Supraventricular tachycardia
- CHF, significant volume overload
- Acute postop blood loss anemia - s/p 1 pRBC on 11/08
- Acute postop thrombocytopenia - s/p 1 unit platelet on 11/09
- Acute postop hypovolemia with subsequent hypervolemia
- Acute postop atelectasis
Discussed patient care with: Cardiology, Nursing, Respiratory Therapy, Pharmacy and Care Team
Subjective
-
Date of Service: November 15, 2024
Pt c/o mild incisional pain and cough, otherwise feels well
Objective Data
-
Lab Results
11/14/24 03:45
PT 13.1 Sec (11.4-14.6) 11/13/24 07:55
INR 0.96 11/13/24 07:55
APTT 32.1 Sec (23.4-35.0) 11/13/24 07:55
Vital Signs
Vital Signs
Temp Pulse Resp BP Pulse Ox
98.4 F 102 18 113/67 98
11/15/24 00:00 11/15/24 01:00 11/15/24 01:00 11/15/24 01:00 11/15/24 01:00
CT Intake/Output/Weight
11/14/24 11/14/24 11/15/24
06:59 18:59 06:59
Intake Total 174.0 / 467.0 162.0 / 253.0 91 / 253.0
Output Total 270 / 880 550 / 840 290 / 840
Balance -96.0 / -413.0 -388.0 / -587.0 -199 / -587.0
SaO2: 98 (RA)
Physical Exam
-
General: Awake, Oriented and AOx3
Cardiovascular: Regular rate & rhythm, No Murmurs, No Rub and No Gallop
Respiratory: Decreased Breath Sounds (at bases, otherwise clear)
Sternum: Stable
Incision: Clean, Dry, Intact and Dressing Intact
Extremities: Edema +1
Data Reviewed
-
Lab Results: Results Reviewed
Medications: Active Meds Reviewed
Chest X-Ray: Report Reviewed and Image Reviewed
ECG: Report Reviewed and Image Reviewed
[2024-11-15 04:27] LABS: Lactic Acid 0.8 mmol/L (0.7-2.0)
[2024-11-15 04:28] LABS: ALT (SGPT) 24 U/L (0-35); AST (SGOT) 27 U/L (14-36); Albumin 2.9 g/dl (3.5-5.0); Alkaline Phosphatase 68 U/L (38-126); Blood Urea Nitrogen 19 mg/dl (7-17); Calcium 7.8 mg/dl (8.4-10.2); Carbon Dioxide 25 mmol/L (22-30); Chloride 105 mmol/L (98-107); Direct Bilirubin 0.3 mg/dl (0.0-0.4); Estimated Creatinine Clearance 57 ml/min; Glucose 106 mg/dl (70-99); Potassium 4.1 mmol/L (3.5-5.1); Sodium 131 mmol/L (135-145); Total Bilirubin 1.4 mg/dl (0.2-1.3); Total Protein 4.7 g/dl (6.3-8.2); eGFR > 60.00
[2024-11-15 05:40] LABS: Hematocrit 27.3 % (37.0-47.0); Hemoglobin 9.3 g/dL (12.0-16.0); Mean Corp Hgb Conc. 34.1 g/dL (33.0-37.0); Mean Corpuscular Hgb 31.2 pg (27.0-31.0); Mean Corpuscular Volume 91.6 fL (81.0-99.0); Mean Platelet Volume 9.4 fL (7.4-10.4); Platelet Count 92 10^3/uL (130-400); Red Blood Cell Count 2.98 10^6/uL (4.20-5.40); Red Cell Dist. Width 15.5 % (11.5-14.5)
[2024-11-15] MEDS: TYLENOL 1000 MG PO ×3 (06:22→21:22)
[2024-11-15] MEDS: NSS 500 IV (06:30)
--- NOTE | 2024-11-15 06:30 | PTCARENOTE ---
Patient reassessed. Remains afib on the monitor. Hygiene care provided. CT wound dressing saturated again. Changed. OOB to chair without incident. Dobut remains @2. AM labs obtained.
--- NOTE | 2024-11-15 08:00 | PTCARENOTE ---
pt received from previous RN, oriented, OOB in chair. A-fib on the monitor, HR 100-120s. SBP 110-120s, palpable pulses. +1 RUE edema, +2 LE edema, trace generalized. CVP ~9. Dobutamine gtt running as ordered. pt on RA, 96% POX. lungs diminished in
bases, occasional productive cough. IS encouraged. pt abdomen s/n, denies n/v. diet tolerated. Zee in place. +BS, pt states has had BM. sternal incision LUDWIG, approximated. chest tube site intact. L groin/hip ecchymosis, s/n. RIJ stitch w/ stopper
intact. LIJ cordis w/ [place]. PIV. see worklist for VS, I&O, and assessment.
--- NOTE | 2024-11-15 08:18 | W.PN.INTV ---
Today's Communication / Plan
Recommendations
- Wean dobutamine as tolerated
- Continue diuresis
Assessment
-
Patient is a very pleasant 84-year-old female with known history of severe mitral regurgitation and tricuspid regurgitation with resultant heart failure with preserved ejection fraction and worsening dyspnea. She had a coronary angiogram performed
in September 2024 which was negative for any significant coronary artery disease. Patient subsequently was seen by CT surgery and was admitted for an elective mitral valve and tricuspid valve repair. She had the above procedure performed on 11/08/2024
along with right and left atrial maze procedure. At the separation from heart-lung machine, paradoxical septal wall motion was noted with brief episode of V-fib necessitating resuscitation suspected due to micro air emboli. SARAI showed significant
amount of residual air/gas in the left atrium along with moderate to severe right ventricular systolic dysfunction. Patient subsequently was brought to CVICU. She developed rising lactate level and cardiogenic shock and a 2D echo cardiogram showed
significantly worse RV function. Patient was taken to [facility] and had RP Impella placed for right ventricular support. Subsequently lactate has improved. Patient has been successfully extubated since and is doing well. Job Recruiter consultation
was requested for further input.
S/p left and right atrial maze procedure, left atrial appendage exclusion, radical mitral valve repair, tricuspid valve repair POD #7
11/08/2024, Post-op, Acute RV dysfunction, S/p RP Impella (pRVAD), removed 11/11
Titrate off pressors per protocol, Impella removed, Dobutamine @1 now, off heparin now and on Eliquis
Patient noted to be in atrial fibrillation, rate controlled, mid 90s to 100/min.
ECHO reviewed, 11/08, severely reduced RV systolic function. Normal LVEF --> repeat echo on 11/11/2024 shows reduced RV systolic function
Chest tube removed, 11/11
Extubated, currently on RA, high 90's. Work of breathing normal
CXR with no obvious opacities/infiltrates with bilateral pleural effusions --> currently on 20 mg IV Lasix BID
No prior history of pulmonary disease
Can add nebulizers if needed
Aspiration precautions
Encouraged incentive spirometry, OOB/ambulation/early mobility
Advance diet as tolerated following extubation
GI prophylaxis: Pantoprazole
Monitor critical I/O
Transfuse if needed to keep H&H >7-8 g/dL, platelets >50 K given her postoperative status
Goal BG 110-140
Continue ASA, amiodarone + metoprolol
#1. Severe symptomatic Mitral valve regurgitation, moderate to severe TR. s/p MV and TV repair (11/08/2024)
#2. Post-op Acute RV dysfunction and cardiogenic shock. s/p RP Impella placed (11/08/2024), Dobutamine down to 2 now, Impella removed 11/11
#3. HFpEF, due to MR and TR. CXR without pulmonary edema today. s/p Albumin IV. Also received lasix. -389 ml
#4. Paroxysmal A Fib with RVR. Off Heparin now. PO Amiodarone resumed. rate controlled. PO Eliquis.
#5. H/o TIA. On aspirin
#6. Thrombocytopenia. Fibrinogen normal, D-dimer elevated. Platelet count improving
Critical care statement: A total of 37 minutes of critical care time was provided for this patient today. This includes management of unstable vital signs, evaluation of the patient at bedside, reviewing the patient's pertinent medical records
including radiographs, microbiology, laboratory evaluations, and discussion with primary team, consultants, pharmacy, nutrition, physical therapy, case management, charge nurse, critical care nursing, and respiratory therapy.
Data:
ECHO 10/2024: Normal left ventricular size, wall thickness and systolic function. No regional
wall motion abnormalities are seen. LV ejection fraction is 50-55% by visual
assessment.
Severely reduced right ventricular systolic function. Right ventricle is top
normal in size.
Mitral valve repair with peak/mean gradients across the mitral valve of 6/3
mmHg, respectively. No mitral regurgitation is seen.
Tricuspid valve repair with a mean gradient of 1 mmHg. Trace tricuspid
regurgitation.
Normal pericardium without effusion.
Compared to transesophageal echo dated 10/20/2024: mitral and tricuspid valves
have been repaired; right ventricular systolic function is severely reduced and
was previously normal.
CT Chest/Abd/Pelvis: 10/2024: 1. No aortic aneurysm or dissection.
2. Mild coronary artery calcifications. Minimal atherosclerotic calcifications.
3. Trace right pleural effusion.
Cardiac Cath 09/2024: 1: Normal coronary arteries.
2: Severe mitral regurgitation with preserved LV systolic function.
Subjective Dataa
Subjective Data
Date of Service:
Date of Service: November 15, 2024
Chief Complaint: Job Recruiter Follow Up
Subjective:
Patient seen this morning. Remains on dobutamine drip, currently at 1 mcg/kg/min. BP 1 9/60, heart rate 101 and saturating 99% on room air. She currently denies shortness of breath or chest pain.
Review of Systems
General: Other (Negative unless mentioned above)
Objective Data
Data Reviewed
Vital Signs / I&O / Oxygen:
Vital Signs
Temp Pulse Resp BP Pulse Ox
98 F 125 25 115/78 96
11/15/24 08:00 11/15/24 09:00 11/15/24 09:00 11/15/24 09:00 11/15/24 08:00
Intake and Output
11/14/24 11/15/24 11/16/24
06:59 06:59 06:59
Intake Total 452.5 / 467.0 318.0 / 331.0 136.0 / 136.0
Output Total 860 / 880 1020 / 1020 35 / 35
Balance -407.5 / -413.0 -702.0 / -689.0 101.0 / 101.0
SaO2 [SIMV] 100
SaO2 96
Nasal Cannula flow liters per 97
minute
Physical Exam
General: Respiratory Distress (negative), Comfortable, Chills (negative) and Sweats (negative)
HEENT: Normocephalic and Anicteric
Cardiovascular: Irregular Rhythm and Peripheral Edema (+1 lower extremity pitting edema bilaterally)
Respiratory: Wheeze (negative), Crackles (Faintly bibasilar), Rhonchi (negative) and Non-Labored Respirations
GI: Soft, Non Distended, Non Tender and Normal Bowel Sounds
Neurology: AO x 3 and Tremors (negative)
Skin: Warm, Dry, Cyanosis (negative) and Jaundice (negative)
Labs/Micro/Reports
Lab Data
11/15/24 05:18
11/15/24 06:00
[2024-11-15] MEDS: SENOKOT-S 1 TABLET PO (08:52)
[2024-11-15] MEDS: LOW STRENGTH ASPIRIN 81 MG PO (08:52)
[2024-11-15] MEDS: PACERONE 200 MG PO ×3 (08:52→21:23)
[2024-11-15] MEDS: OSCAL CAL 500 1000 MG PO ×2 (08:52→19:30)
[2024-11-15] MEDS: ELIQUIS 5 MG PO ×2 (08:52→19:30)
[2024-11-15] MEDS: NEURONTIN 100 MG PO ×3 (08:52→21:22)
[2024-11-15] MEDS: PROTONIX 40 MG PO (08:52)
[2024-11-15] MEDS: THERAGRAN 1 TABLET PO (08:52)
[2024-11-15] MEDS: MAGNESIUM OXIDE 500 MG PO ×2 (08:53→19:30)
[2024-11-15] MEDS: VITAMIN C 500 MG PO (08:53)
[2024-11-15] MEDS: ZINC 50 MG PO (08:53)
[2024-11-15] MEDS: VITAMIN D3 (cholecalciferol) 25 MCG PO (08:53)
[2024-11-15] MEDS: LASIX 20 MG IV ×2 (08:53→16:24)
[2024-11-15] MEDS: CALCIUM GLUCONATE 100 IV (08:53)
--- NOTE | 2024-11-15 08:57 | W.PN.CARDCBS ---
Today's Communication / Plan
-
-Cont to wean off IV Dobutamine hopefully next 24 hrs.
-Heart rate and blood pressure remain stable.
-Cont Lasix IV diuresis.
-Remains in atrial fibrillation. Continues with PO amiodarone for rate control. Beta-daniella on hold while on dobutamine.
-Back on Eliquis
Status post NENA clip November 08.
Impression / Plan
-
.
PCP: Dayana Dotson
Senior Principal Architect: Quinten Pepper
Impression:
Severe Mitral valve regurgitation
s/p mitral valve repair with 34 mm band annuloplasty band 11/08/2024
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
s/p tricuspid repair with 30 mm band annuloplasty band 11/08/2024
Paroxysmal atrial fibrillation
s/p right and left atrial maze (combination of cryo and RF ablation) 11/08/2024
Left atrial appendage clip 45 mm device 11/08/2024, Dr. Osborne
PVCs
h/o TIA
Paroxysmal Atrial fibrillation
Osteoporosis
Supraventricular tachycardia
Heart failure with preserved ejection fraction
Hypernatremia
Cardiac catheterization 10/05/2024: LM: Patent. LAD: Patent. Left circumflex: Patent. RCA: Patent. HEMODYNAMIC FINDINGS (mmHg): LV(s/d,EDP): 115/12, 17; Ao(s/d,m): 115/67, 90. LVG EF 65%, +4 MR
Echo 09/12/2024: EF 50 to 55%. No regional wall motion abnormalities. Mild concentric LVH. Normal RV size and function. Severely dilated left atrium with volume index 57.0 mL/m2. Severe mitral regurgitation with moderate mitral annular
calcification. Moderate tricuspid regurgitation. RVSP 33.3 mmHg.
Intra-op SARAI 11/08/2024: Severe MR with prolapse of P2 with flail segment. Mild to moderate TR. By atrial enlargement. Post operative SARAI status post MV repair with annuloplasty band no paravalvular leak and leaflets functioning appropriately.
Mean gradient 2. Status post TR repair with 30 mm annuloplasty band with residual trace TR, mean gradient 1 mmHg. EF 45%. Status post left atrial appendage exclusion clip well-seated no flow seen into the left atrial appendage. Significant amount
of residual gas/air in left atrium. Moderate to severe RV systolic dysfunction.
Echo 11/08/2024: EF 50-55%, RV top normal size, s/p MV repair with peak/mean gradients across the mitral valve of 6/3 mmHg, respectively, no MR, s/p TV repair with a mean gradient of 1 mmHg, trace TR, normal pericardium without effusion.
Plan:
s/p mitral valve repair, tricuspid valve repair, left and right atrial maze, and NENA clip 11/08/2024 w/ Dr. Osborne
-Intra-op there was concern for micro air emboli w/ episode of VF requiring resuscitation. Post-op SARAI showed significant amount of residual air/gas in L atrium w/ mod to severe RV systolic dysfunction. CI 1.7 w/ SVR <2000, with rising lactate
level, so underwent RP Impella placement via RIJ.
-Cont post op care
-Cont to wean off IV Dobutamine hopefully next 24 hrs.
-Heart rate and blood pressure remain stable.
-Cont Lasix IV diuresis.
-Remains in atrial fibrillation. Continues with PO amiodarone for rate control. Beta-daniella on hold while on dobutamine.
-Back on Eliquis
Status post NENA clip November 08.
-OOB/PT
-Discussed with nursing
HPI 11/08/2024: Patient is a 84-year-old female with severe symptomatic mitral valve regurgitation, moderate to severe tricuspid regurgitation, heart failure with preserved ejection fraction, paroxysmal atrial fibrillation on chronic anticoagulation
with Eliquis, history of TIA and migraine headache. Patient developed symptomatic mixed valvular disease and worsening heart failure symptoms requiring diuretic therapy. She underwent cardiac catheterization September 2024 which demonstrated no
significant coronary artery disease. She now presents for elective valve repair of mitral and tricuspid valves as well as maze and left atrial appendage clipping. Cardiology being asked to see patient postoperatively.
Progress Note - Senior Principal Architect
Subjective
Date of Service: November 15, 2024
Pt seen and examined. No complaints. No chest pain or shortness of breath.
Objective
Labs:
11/15/24 05:18
11/15/24 06:00
Labs
Hgb 9.3 g/dL (12.0-16.0) L 11/15/24 05:18
Hct 27.3 % (37.0-47.0) L 11/15/24 05:18
Plt Count 92 10^3/uL (130-400) L 11/15/24 05:18
PT 13.1 Sec (11.4-14.6) 11/13/24 07:55
INR 0.96 11/13/24 07:55
APTT 32.1 Sec (23.4-35.0) 11/13/24 07:55
Sodium Cancelled 11/15/24 06:00
Potassium Cancelled 11/15/24 06:00
BUN Cancelled 11/15/24 06:00
Creatinine Cancelled 11/15/24 06:00
Glucose Cancelled 11/15/24 06:00
Vital Signs and I&O:
Vital Signs
Temp Pulse Resp BP Pulse Ox
98 F 118 19 121/80 96
11/15/24 08:00 11/15/24 08:05 11/15/24 08:05 11/15/24 08:05 11/15/24 08:00
Vital Signs
Temp Pulse Resp BP Pulse Ox
98 F 118 19 121/80 96
11/15/24 08:00 11/15/24 08:05 11/15/24 08:05 11/15/24 08:05 11/15/24 08:00
Intake & Output
11/13/24 11/14/24 11/15/24 11/16/24
06:59 06:59 06:59 06:59
Intake Total 1157.0 / 1183.0 452.5 / 467.0 318.0 / 331.0 24.5 / 24.5
Output Total 850 / 870 860 / 880 1020 / 1020
Balance 307.0 / 313.0 -407.5 / -413.0 -702.0 / -689.0 24.5 / 24.5
Physical Exam
Physical Exam
General: No acute distress, AAOX3
Neck: Negative JVD
Heart: Regular, Negative S3 positive S1/S2, Negative S4, No murmur
Lungs: CTA b/l, negative wheezes/rales/rhonchi
Abd: Positive BS, NT/ND, neg rebound/rigidity/guarding
Ext: Negative cyanosis/clubbing/edema
Neuro: nonfocal
--- NOTE | 2024-11-15 10:05 | PTCARENOTE ---
chuyita williamson as ordered, voided in BSC. pt ambulated in hallway w/ PT/OT. OOB in chair.
--- NOTE | 2024-11-15 12:00 | PTCARENOTE ---
pt VSS, no changes in assessment. OOB in chair for lunch. IS encouraged. voiding in BSC. oral hygiene performed.
--- NOTE | 2024-11-15 14:07 | CM ---
Chart reviewed. Patient is independent of ADLS, lives alone in a 1 STH, 2 TOBY, 0 DME. PT recommending Acute Rehab. Patient told me her sister is coming to stay with her for 2 weeks and would prefer to go home. Patient said she hasn't really
been up walking and her legs are still swollen from all the fluid. Patient hopes after diuresis she will be able to ambulate better. Plan is for the patient to return home with sister and CT Transitional RN vs Acute Rehab based on functional
needs. Referrals sent to [facility] and [facility]. CM to follow
[2024-11-15] MEDS: SENOKOT-S PO (19:31)
--- NOTE | 2024-11-15 20:00 | PTCARENOTE ---
Received pt from [facility]. pt is resting comfortably in chair. pt is AAOx4, denies pain. Afib on monitor, VSS. heart sounds audible, radial and DP pulses palpable, trace anasarca, +2 JOSIANE. crackles in left posterior base, anterior lung field clear,
spo2 96% on RA. +BS x4 quadrants, abdomen soft, non tender, LBM 11/15. pt voiding clear yellow urine. surgical sites maintained, left hip ecchymotic, chest tube dressing changed. left IJ cordis/slick and PIV maintained, leveled, and zeroed.
dobutamine gtt infusing. pt cleaned with CHG wipes, new tele leads and gown provided. call florence within reach. will continue to monitor.
[2024-11-15] MEDS: XANAX 0.25 MG PO (21:33)
--- NOTE | 2024-11-15 23:45 | PTCARENOTE ---
Pt assessment unchanged. Afib on monitor. VSS. pt resting comfortably in bed. call florence within reach. will continue to monitor.
[2024-11-16] VITALS (9 sets, daily range): BP systolic 105–126; BP diastolic 49–82; PULSE 141; BMI 26.0
[2024-11-16 03:44] LABS: Mixed Venous O2 Saturation 64.8 %
[2024-11-16 03:47] LABS: Hematocrit 28.3 % (37.0-47.0); Hemoglobin 9.8 g/dL (12.0-16.0); Mean Corp Hgb Conc. 34.6 g/dL (33.0-37.0); Mean Corpuscular Hgb 31.9 pg (27.0-31.0); Mean Corpuscular Volume 92.2 fL (81.0-99.0); Mean Platelet Volume 9.3 fL (7.4-10.4); Platelet Count 124 10^3/uL (130-400); Red Blood Cell Count 3.07 10^6/uL (4.20-5.40); White Blood Cell Count 7.2 10^3/uL (4.8-10.8)
--- NOTE | 2024-11-16 03:57 | PTCARENOTE ---
pt assessment unchanged. Afib on monitor confirmed by EKG. VSS. Labs obtained and sent. pt assisted to void. pt weighted and assisted back to bed. call florence within reach. will continue to monitor.
[2024-11-16 04:04] LABS: Lactic Acid 1.1 mmol/L (0.7-2.0)
[2024-11-16 04:24] LABS: ALT (SGPT) 23 U/L (0-35); AST (SGOT) 28 U/L (14-36); Albumin 3.2 g/dl (3.5-5.0); Alkaline Phosphatase 76 U/L (38-126); Blood Urea Nitrogen 19 mg/dl (7-17); Calcium 8.4 mg/dl (8.4-10.2); Carbon Dioxide 26 mmol/L (22-30); Chloride 103 mmol/L (98-107); Direct Bilirubin 0.2 mg/dl (0.0-0.4); Estimated Creatinine Clearance 49 ml/min; Glucose 97 mg/dl (70-99); Potassium 4.2 mmol/L (3.5-5.1); Sodium 132 mmol/L (135-145); Total Bilirubin 1.4 mg/dl (0.2-1.3); Total Protein 5.1 g/dl (6.3-8.2); eGFR > 60.00
--- NOTE | 2024-11-16 04:45 | W.PN.CT ---
Today's Communication / Plan
-
Plan:
-No major issues overnight. Hemodynamically and neurologically intact
-Dobutamine weaned to 1 from 2 mcg/kg/min yesterday. Will cont. to wean as tolerated
-MVO2 64.8%
-Impella d/c'd 11/11
-Received 1 {5pk} plts prior to Impella removal for plt of 51, Plts 124 today, up from 92 yesterday, resumed ASA and Eliquis 11/13
-Has been in A-fib postop, rate coming down with decrease in Dobutamine
-Monitor postop hyponatremia 132, was 131 yesterday, cont. with gentle diuresis
-F/U 2-view cxr
-Will d/c cordis if able to wean off dobutamine
-Has retention suture to RIJ
-Encourage use of IS
-OOB into chair/Ambulate
-PT/OT F/U
-Physiatry to evaluate for Kelly placement
-Transfer to acute rehab in 1-2 days (wants to go home, states sister is traveling from [place] to stay with her)
Assessment / Plan
-
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
maze [combination of RF and cryoablation]; Left atrial appendage exclusion [45 mm clip] on 11/08/[address] Osborne, pod #8
- s/p Successful placement of an Impella RP flex via the right internal jugular vein on 11/08/[address] Camejo
- Intraop SARAI: LVEF preop was 55% with no significant regional wma. She does have a history of cardiomyopathy with mildly dilated right and left ventricles. Her left atrium and right atrium are also dilated. Following surgery EF did reduce to
+45% and she had some septal inferior wall hypokinesis with dyskinesia. The lateral wall was moving appropriately. Her right ventricle did appear to be mild to mild to moderately depressed after valve repair. At the conclusion of the case off
cardiopulmonary bypass there was no residual mitral valve insufficiency and no residual tricuspid valve insufficiency. The mean gradient across the mitral valve was 2 mmHg and the mean gradient across tricuspid valve was 1 mmHg. She did have
significant PACs conclusion of the case and required defibrillation x 2 likely secondary to air entrainment down the coronary. Follow-up transesophageal echocardiogram demonstrated that there was still residual air coming out of her pulmonary veins
and sitting in her left atrium.
- Degenerative mitral valve disease with severe insufficiency, type II pathology with some component of type I pathology
- Functional tricuspid valve insufficiency
- PVCs
- TIA
- Atrial fibrillation
- Osteoporosis
- Supraventricular tachycardia
- CHF, significant volume overload
- Acute postop blood loss anemia - s/p 1 pRBC on 11/08
- Acute postop thrombocytopenia - s/p 1 unit platelet on 11/09
- Acute postop hypovolemia with subsequent hypervolemia
- Acute postop atelectasis
Discussed patient care with: Cardiology, Nursing, Respiratory Therapy, Pharmacy and Care Team
Subjective
-
Date of Service: November 16, 2024
Pt c/o mild incisional, cough has subsided and slept better
Objective Data
-
Lab Results
11/16/24 03:21
11/16/24 03:21
PT 13.1 Sec (11.4-14.6) 11/13/24 07:55
INR 0.96 11/13/24 07:55
APTT 32.1 Sec (23.4-35.0) 11/13/24 07:55
Vital Signs
Vital Signs
Temp Pulse Resp BP Pulse Ox
98.7 F 104 16 99/49 98
11/16/24 03:54 11/15/24 23:45 11/16/24 03:54 11/15/24 23:37 11/16/24 03:54
CT Intake/Output/Weight
11/15/24 11/15/24 11/16/24
06:59 18:59 06:59
Intake Total 156 / 331.0 328.0 / 339.5 11.5 / 339.5
Output Total 470 / 1020 1385 / 2205 820 / 2205
Balance -314 / -689.0 -1057.0 / -1865.5 -808.5 / -1865.5
SaO2: 98 (RA)
Physical Exam
-
General: Awake, Oriented and AOx3
Cardiovascular: Irregular rate & rhythm, No Murmurs, No Rub and No Gallop
Respiratory: Decreased Breath Sounds (at bases, otherwise clear)
Sternum: Stable
Incision: Clean, Dry, Intact and Dressing Intact
Extremities: Edema +1
Data Reviewed
-
Lab Results: Results Reviewed
Medications: Active Meds Reviewed
Chest X-Ray: Report Reviewed and Image Reviewed
ECG: Report Reviewed and Image Reviewed
[2024-11-16] MEDS: TYLENOL 1000 MG PO ×3 (06:26→21:23)
--- NOTE | 2024-11-16 08:10 | W.PN.INTV ---
Today's Communication / Plan
Recommendations
- Continue diuresis
- Up OOB as tolerated
- Encourage IS
Patient transferred to CVICU�telemetry status. No additional recommendations at this time. Trim Attacher/Pulmonary service will now sign off. Please reconsult if there are any additional questions/concerns, or if patient's respiratory status
deteriorates.
Assessment
-
Patient is a very pleasant 84-year-old female with known history of severe mitral regurgitation and tricuspid regurgitation with resultant heart failure with preserved ejection fraction and worsening dyspnea. She had a coronary angiogram performed
in September 2024 which was negative for any significant coronary artery disease. Patient subsequently was seen by CT surgery and was admitted for an elective mitral valve and tricuspid valve repair. She had the above procedure performed on 11/08/2024
along with right and left atrial maze procedure. At the separation from heart-lung machine, paradoxical septal wall motion was noted with brief episode of V-fib necessitating resuscitation suspected due to micro air emboli. SARAI showed significant
amount of residual air/gas in the left atrium along with moderate to severe right ventricular systolic dysfunction. Patient subsequently was brought to CVICU. She developed rising lactate level and cardiogenic shock and a 2D echo cardiogram showed
significantly worse RV function. Patient was taken to [facility] and had RP Impella placed for right ventricular support. Subsequently lactate has improved. Patient has been successfully extubated since and is doing well. Trim Attacher consultation
was requested for further input.
S/p left and right atrial maze procedure, left atrial appendage exclusion, radical mitral valve repair, tricuspid valve repair POD #8
11/08/2024, Post-op, Acute RV dysfunction, S/p RP Impella (pRVAD), removed 11/11
Titrated off dobutamine this morning; s/p Impella, off heparin now and on Eliquis
Patient noted to be in atrial fibrillation, rate controlled, mid 90s to 100/min.
ECHO reviewed, 11/08, severely reduced RV systolic function. Normal LVEF --> repeat echo on 11/11/2024 shows reduced RV systolic function
Chest tube removed, 11/11
Extubated, currently on RA, high 90's. Work of breathing normal
CXR with no obvious opacities/infiltrates with bilateral pleural effusions --> currently on 20 mg IV Lasix BID
No prior history of pulmonary disease
Can add nebulizers if needed
Aspiration precautions
Encouraged incentive spirometry, OOB/ambulation/early mobility
Advance diet as tolerated following extubation
GI prophylaxis: Pantoprazole
Monitor critical I/O
Transfuse if needed to keep H&H >7-8 g/dL, platelets >50 K given her postoperative status
Goal BG 110-140
Continue ASA, amiodarone + metoprolol
#1. Severe symptomatic Mitral valve regurgitation, moderate to severe TR. s/p MV and TV repair (11/08/2024)
#2. Post-op Acute RV dysfunction and cardiogenic shock. s/p RP Impella placed (11/08/2024), Impella removed 11/11, dobutamine now off as stated above
#3. HFpEF, due to MR and TR. Continue IV lasix
#4. Paroxysmal A Fib with RVR. Off Heparin now. PO Amiodarone resumed. rate controlled. PO Eliquis.
#5. H/o TIA. On aspirin
#6. Thrombocytopenia. Fibrinogen normal, D-dimer elevated. Platelet count improving
Patient transferred to CVICU�telemetry status. No additional recommendations at this time. Trim Attacher/Pulmonary service will now sign off. Thank you for allowing us to be involved in the care of this patient. Please reconsult if there are any
additional questions/concerns, or if patient's respiratory status deteriorates.
Data:
ECHO 10/2024: Normal left ventricular size, wall thickness and systolic function. No regional
wall motion abnormalities are seen. LV ejection fraction is 50-55% by visual
assessment.
Severely reduced right ventricular systolic function. Right ventricle is top
normal in size.
Mitral valve repair with peak/mean gradients across the mitral valve of 6/3
mmHg, respectively. No mitral regurgitation is seen.
Tricuspid valve repair with a mean gradient of 1 mmHg. Trace tricuspid
regurgitation.
Normal pericardium without effusion.
Compared to transesophageal echo dated 10/20/2024: mitral and tricuspid valves
have been repaired; right ventricular systolic function is severely reduced and
was previously normal.
CT Chest/Abd/Pelvis: 10/2024: 1. No aortic aneurysm or dissection.
2. Mild coronary artery calcifications. Minimal atherosclerotic calcifications.
3. Trace right pleural effusion.
Cardiac Cath 09/2024: 1: Normal coronary arteries.
2: Severe mitral regurgitation with preserved LV systolic function.
Total time spent today was 56 minutes for this encounter. Time includes reviewing laboratory test/imaging results, reviewing pertinent medical records, obtaining and reviewing medical history, performing an appropriate exam, ordering medications,
tests and procedures. Time also includes documentation of this encounter, coordinating patient care and communicating with other healthcare professionals. Total time does not include separately billed tests performed on this date of service.
Subjective Dataa
Subjective Data
Date of Service:
Date of Service: November 16, 2024
Chief Complaint: Trim Attacher Follow Up
Subjective:
Patient seen and evaluated today at bedside. Weaned off dobutamine earlier this morning. She is currently tachycardic to 133 as she was just working with PT. She denies shortness of breath or chest pain. Also denies ALMANZA, nausea, fevers or chills.
Review of Systems
General: Other (Negative unless mentioned above)
Objective Data
Data Reviewed
Vital Signs / I&O / Oxygen:
Vital Signs
Temp Pulse Resp BP Pulse Ox
98.0 F 110 16 123/73 98
11/16/24 07:46 11/16/24 07:47 11/16/24 07:46 11/16/24 07:47 11/16/24 07:46
Intake and Output
11/15/24 11/16/24 11/17/24
06:59 06:59 06:59
Intake Total 318.0 / 331.0 339.5 / 339.5
Output Total 1020 / 1020 2205 / 2205 300 / 300
Balance -702.0 / -689.0 -1865.5 / -1865.5 -300 / -300
SaO2 [SIMV] 100
SaO2 98
Nasal Cannula flow liters per 97
minute
Physical Exam
General: Respiratory Distress (negative), Comfortable, Chills (negative) and Sweats (negative)
HEENT: Normocephalic and Anicteric
Cardiovascular: Irregular Rhythm and Peripheral Edema (+1 lower extremity pitting edema bilaterally)
Respiratory: Wheeze (negative), Crackles (Faintly bibasilar), Rhonchi (negative) and Non-Labored Respirations
GI: Soft, Non Distended, Non Tender and Normal Bowel Sounds
Neurology: AO x 3 and Tremors (negative)
Skin: Warm, Dry, Cyanosis (negative) and Jaundice (negative)
Labs/Micro/Reports
Lab Data
11/16/24 03:21
11/16/24 03:21
[2024-11-16] MEDS: VITAMIN D3 (cholecalciferol) 25 MCG PO (08:31)
[2024-11-16] MEDS: THERAGRAN 1 TABLET PO (08:31)
[2024-11-16] MEDS: SENOKOT-S 1 TABLET PO (08:31)
[2024-11-16] MEDS: VITAMIN C 500 MG PO (08:31)
[2024-11-16] MEDS: NEURONTIN 100 MG PO ×3 (08:32→21:24)
[2024-11-16] MEDS: ZINC 50 MG PO (08:32)
[2024-11-16] MEDS: OSCAL CAL 500 1000 MG PO ×2 (08:32→19:27)
[2024-11-16] MEDS: LASIX 20 MG IV ×2 (08:32→15:59)
[2024-11-16] MEDS: LOW STRENGTH ASPIRIN 81 MG PO (08:32)
[2024-11-16] MEDS: ELIQUIS 5 MG PO ×2 (08:32→19:28)
[2024-11-16] MEDS: PACERONE 200 MG PO ×3 (08:32→21:23)
[2024-11-16] MEDS: MUCINEX 600 MG PO ×2 (08:32→19:27)
[2024-11-16] MEDS: MAGNESIUM OXIDE 500 MG PO ×2 (08:32→19:27)
[2024-11-16] MEDS: PROTONIX 40 MG PO (08:32)
--- NOTE | 2024-11-16 09:00 | PTCARENOTE ---
Patient received from cnc machinist 2nd shift RN; AAOx3, responds spontaneously to RN and follows commands; MATCH-E-BE-NASH-SHE-WISH BAND, Flat affect; VSS; Afib on monitor; +2 anasarca; +1 DP and +2 radial pulses; CRUZ; Lungs with fine, crackles at left base; SpO2 92-96% on RA; IS 500
ml; Patient urinating lino urine; Surgical sites intact; LIJ Cordis with SLIC; PIVx1 - #22 LAC; KVO and Dobutamine infusing - see nursing flowsheets for further details; See nursing documentation for further information
[2024-11-16] MEDS: NSS IV (11:28)
--- NOTE | 2024-11-16 12:30 | PTCARENOTE ---
Patient ambulating in hallways with assist x1 with RW; Urinating in bathroom and OOB in chair; PT in room with patient
--- NOTE | 2024-11-16 15:59 | W.PN.CARDCBS ---
Addendum entered and electronically signed by Gomez Kramer DO 11/16/24 21:36:
I saw and examined the patient.
The Supervisor Kennel's note was reviewed and I agree with the note.
Comment:
Plan:
Cont post op care
She is now off Dobutamine
Remains AFib
PT/OT
Discussed with nursing.
Original Note:
Today's Communication / Plan
-
Remains in Afib
Dobutamine off
Impression / Plan
-
.
PCP: Dayana Dotson
Safety Consultant: Quinten Pepper
Impression:
Severe Mitral valve regurgitation
s/p mitral valve repair with 34 mm band annuloplasty band 11/08/2024
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
s/p tricuspid repair with 30 mm band annuloplasty band 11/08/2024
Paroxysmal atrial fibrillation
s/p right and left atrial maze (combination of cryo and RF ablation) 11/08/2024
Left atrial appendage clip 45 mm device 11/08/2024, Dr. Osborne
PVCs
h/o TIA
Paroxysmal Atrial fibrillation
Osteoporosis
Supraventricular tachycardia
Heart failure with preserved ejection fraction
Hypernatremia
Cardiac catheterization 10/05/2024: LM: Patent. LAD: Patent. Left circumflex: Patent. RCA: Patent. HEMODYNAMIC FINDINGS (mmHg): LV(s/d,EDP): 115/12, 17; Ao(s/d,m): 115/67, 90. LVG EF 65%, +4 MR
Echo 09/12/2024: EF 50 to 55%. No regional wall motion abnormalities. Mild concentric LVH. Normal RV size and function. Severely dilated left atrium with volume index 57.0 mL/m2. Severe mitral regurgitation with moderate mitral annular
calcification. Moderate tricuspid regurgitation. RVSP 33.3 mmHg.
Intra-op SARAI 11/08/2024: Severe MR with prolapse of P2 with flail segment. Mild to moderate TR. By atrial enlargement. Post operative SARAI status post MV repair with annuloplasty band no paravalvular leak and leaflets functioning appropriately.
Mean gradient 2. Status post TR repair with 30 mm annuloplasty band with residual trace TR, mean gradient 1 mmHg. EF 45%. Status post left atrial appendage exclusion clip well-seated no flow seen into the left atrial appendage. Significant amount
of residual gas/air in left atrium. Moderate to severe RV systolic dysfunction.
Echo 11/08/2024: EF 50-55%, RV top normal size, s/p MV repair with peak/mean gradients across the mitral valve of 6/3 mmHg, respectively, no MR, s/p TV repair with a mean gradient of 1 mmHg, trace TR, normal pericardium without effusion.
Echo 11/11/2024: EF 50 to 55%, reduced RV systolic function, status post MV repair and mitral valve opens normally with trace MR
Plan:
-Dobutamine weaned off 11/16/24 AM
-Outpatient dose of Lopressor 50 mg BID remains on hold
-EF 50-55% by echo 11/11/24 following RP Impella removal
-Tele reviewed by me 11/16/24 and remains in Afib. Patient with known paroxysmal Afib and had left and right atrial maze (combination of cryo and RF ablation) on 11/08/24
-Outpatient dose of Eliquis 5 mg BID restarted 11/13/24. Patient had NENA exclusion 45 mm device 11/08/24
-Lopressor as above. New to amiodarone 200 mg TID and QTc 472 ms on 11/16/24 ECG as reviewed by me.
HPI 11/08/2024: Patient is a 84-year-old female with severe symptomatic mitral valve regurgitation, moderate to severe tricuspid regurgitation, heart failure with preserved ejection fraction, paroxysmal atrial fibrillation on chronic anticoagulation
with Eliquis, history of TIA and migraine headache. Patient developed symptomatic mixed valvular disease and worsening heart failure symptoms requiring diuretic therapy. She underwent cardiac catheterization September 2024 which demonstrated no
significant coronary artery disease. She now presents for elective valve repair of mitral and tricuspid valves as well as maze and left atrial appendage clipping. Cardiology being asked to see patient postoperatively.
Progress Note - Safety Consultant
Subjective
Date of Service: November 16, 2024
Minimal pain
Objective
Labs:
11/16/24 03:21
11/16/24 03:21
Labs
Hgb 9.8 g/dL (12.0-16.0) L 11/16/24 03:21
Hct 28.3 % (37.0-47.0) L 11/16/24 03:21
Plt Count 124 10^3/uL (130-400) L D 11/16/24 03:21
PT 13.1 Sec (11.4-14.6) 11/13/24 07:55
INR 0.96 11/13/24 07:55
APTT 32.1 Sec (23.4-35.0) 11/13/24 07:55
Sodium 132 mmol/L (135-145) L 11/16/24 03:21
Potassium 4.2 mmol/L (3.5-5.1) 11/16/24 03:21
BUN 19 mg/dl (7-17) H 11/16/24 03:21
Creatinine 0.7 mg/dL (0.6-1.0) 11/16/24 03:21
Glucose 97 mg/dl (70-99) 11/16/24 03:21
Vital Signs and I&O:
Vital Signs
Temp Pulse Resp BP Pulse Ox
97.8 F 117 17 126/82 98
11/16/24 12:00 11/16/24 10:30 11/16/24 12:00 11/16/24 10:22 11/16/24 12:00
Vital Signs
Temp Pulse Resp BP Pulse Ox
97.8 F 117 17 126/82 98
11/16/24 12:00 11/16/24 10:30 11/16/24 12:00 11/16/24 10:22 11/16/24 12:00
Intake & Output
11/14/24 11/15/24 11/16/24 11/17/24
06:59 06:59 06:59 06:59
Intake Total 452.5 / 467.0 318.0 / 331.0 339.5 / 339.5 291.5 / 291.5
Output Total 860 / 880 1020 / 1020 2205 / 2205 650 / 650
Balance -407.5 / -413.0 -702.0 / -689.0 -1865.5 / -1865.5 -358.5 / -358.5
Physical Exam
Physical Exam
GEN: NAD. AAOx3
LUNGS: RA.
CV: Afib on tele.
--- NOTE | 2024-11-16 16:00 | CM ---
Chart reviewed. Patient is independent of ADLS, lives alone in a 1 STH, 2 TOBY, 0 DME. PT recommends Acute vs Home PT. OT reevaluated patient in the afternoon and found patient to be a 2 person assist recommending Acute Rehab. Patient would like
to go home and said her sister is traveling here from [place] to stay with the patient for 2 weeks. CM to assess patient's functional needs closer to discharge. Plan is for the patient to return Home vs Acute Rehab. CM to assess
--- NOTE | 2024-11-16 16:15 | DOWNTIME ---
There was a [employer] Client Mechanical Door [employer]r Downtime on 11/16/2024 from 1230 to 11/16/2024 at 1550. Downtime documentation of patient's care, including medication administrations, has been reconciled in the electronic record per guidelines. Refer to the
patient's paper chart under the miscellaneous tab to see printed paper medication records and downtime forms.
--- NOTE | 2024-11-16 16:30 | PTCARENOTE ---
Patient continues to ambulate with RN in hallway; OT in room to work with patient at bedside
[2024-11-16] MEDS: SENOKOT-S PO (19:28)
--- NOTE | 2024-11-16 20:00 | PTCARENOTE ---
Received pt from [facility]. pt is resting comfortably in chair. pt is AAOx4, denies pain. Afib on monitor, VSS. heart sounds audible, radial and DP pulses palpable, trace anasarca, +2 JOSIANE. crackles in left posterior base, anterior lung field clear,
spo2 95% on RA. +BS x4 quadrants, abdomen soft, non tender, LBM 5/28. pt voiding clear yellow urine. surgical sites maintained, left hip ecchymotic, chest tube dressing changed and left LUDWIG. left IJ cordis/slick and PIV maintained, leveled,zeroed,
and flushed. dobutamine gtt d/c during . pt assisted via rolling walker to bathroom. pt assisted back to bed. pt cleaned with CHG wipes, new tele leads and gown provided. call florence within reach. will continue to monitor.
[2024-11-16] MEDS: XANAX 0.25 MG PO (21:23)
[2024-11-17] VITALS (12 sets, daily range): BP systolic 108–139; BP diastolic 47–83; PULSE 95; O2SAT 98; BMI 25.6
--- NOTE | 2024-11-17 | PTCARENOTE ---
Pt assessment unchanged. Afib on monitor. VSS. pt resting comfortably in bed. will continue to monitor. call florence within reach.
[2024-11-17 03:35] LABS: Hematocrit 26.3 % (37.0-47.0); Hemoglobin 8.9 g/dL (12.0-16.0); Mean Corp Hgb Conc. 33.8 g/dL (33.0-37.0); Mean Corpuscular Hgb 31.1 pg (27.0-31.0); Mean Platelet Volume 8.7 fL (7.4-10.4); Platelet Count 128 10^3/uL (130-400); Red Blood Cell Count 2.86 10^6/uL (4.20-5.40)
[2024-11-17 03:55] LABS: Lactic Acid 0.8 mmol/L (0.7-2.0)
--- NOTE | 2024-11-17 04:00 | PTCARENOTE ---
pt assessment unchanged. labs drawn and sent. call florence within reach.
[2024-11-17 04:27] LABS: Blood Urea Nitrogen 23 mg/dl (7-17); Calcium 7.9 mg/dl (8.4-10.2); Carbon Dioxide 26 mmol/L (22-30); Chloride 105 mmol/L (98-107); Estimated Creatinine Clearance 49 ml/min; Glucose 92 mg/dl (70-99); Potassium 3.5 mmol/L (3.5-5.1); Sodium 134 mmol/L (135-145); eGFR > 60.00
--- NOTE | 2024-11-17 05:44 | W.PN.CT ---
Today's Communication / Plan
-
-pod #9
-no significant issues overnight
-feels better overall
-Dobutamine is off 11/16. BB has been on hold postop
-remains in a-fib. Eliquis started 11/13 (on ASA and Eliquis)
-continue diuresis (Cr is stable 0.7)
-ordered 40 po KCL this am (K 3.5)
-follow b/l pleural effusions
-continue PT/OT. Did better with PT yesterday, wants to go home
-plans for d/c [facility] vs home when ready
-
Assessment / Plan
-
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
maze [combination of RF and cryoablation]; Left atrial appendage exclusion [45 mm clip] on 11/08/[address] Osbrone, pod #9
- s/p Successful placement of an Impella RP flex via the right internal jugular vein on 11/08/[address] Camejo (dcd on 11/11)
- Intraop SARAI: LVEF preop was 55% with no significant regional wma. She does have a history of cardiomyopathy with mildly dilated right and left ventricles. Her left atrium and right atrium are also dilated. Following surgery EF did reduce to
+45% and she had some septal inferior wall hypokinesis with dyskinesia. The lateral wall was moving appropriately. Her right ventricle did appear to be mild to mild to moderately depressed after valve repair. At the conclusion of the case off
cardiopulmonary bypass there was no residual mitral valve insufficiency and no residual tricuspid valve insufficiency. The mean gradient across the mitral valve was 2 mmHg and the mean gradient across tricuspid valve was 1 mmHg. She did have
significant PACs conclusion of the case and required defibrillation x 2 likely secondary to air entrainment down the coronary. Follow-up transesophageal echocardiogram demonstrated that there was still residual air coming out of her pulmonary veins
and sitting in her left atrium.
- Degenerative mitral valve disease with severe insufficiency, type II pathology with some component of type I pathology
- Functional tricuspid valve insufficiency
- PVCs
- TIA
- Atrial fibrillation
- Osteoporosis
- Supraventricular tachycardia
- CHF, significant volume overload
- Acute postop blood loss anemia - s/p 1 pRBC on 11/08
- Acute postop thrombocytopenia - s/p 1 unit platelet on 11/09
- Acute postop hypovolemia with subsequent hypervolemia
- Acute postop atelectasis, b/l small pleural effusions, R>L
Discussed patient care with: Nursing and Care Team
Subjective
-
Date of Service: November 17, 2024
Objective Data
-
PT 13.1 Sec (11.4-14.6) 11/13/24 07:55
INR 0.96 11/13/24 07:55
APTT 32.1 Sec (23.4-35.0) 11/13/24 07:55
Vital Signs
Vital Signs
Temp Pulse Resp BP Pulse Ox
98.1 F 88 16 105/67 94
11/16/24 23:50 11/16/24 23:00 11/16/24 23:50 11/16/24 19:27 11/16/24 23:50
CT Intake/Output/Weight
11/16/24 11/16/24 11/17/24
06:59 18:59 06:59
Intake Total 11.5 / 339.5 711.5 / 711.5
Output Total 820 / 2205 1400 / 1600 200 / 1600
Balance -808.5 / -1865.5 -688.5 / -888.5 -200 / -888.5
SaO2: 94
Physical Exam
-
General: Awake, Oriented and AOx3
Cardiovascular: Irregular rate & rhythm, No Murmurs, No Rub and No Gallop
Respiratory: Decreased Breath Sounds (at bases, otherwise clear)
Sternum: Stable
Incision: Clean, Dry, Intact and Dressing Intact
Extremities: Edema +1
Data Reviewed
-
Lab Results: Results Reviewed
Medications: Active Meds Reviewed
Chest X-Ray: Report Reviewed and Image Reviewed
ECG: Report Reviewed and Image Reviewed
[2024-11-17] MEDS: TYLENOL 1000 MG PO ×3 (05:46→22:50)
[2024-11-17] MEDS: OSCAL CAL 500 1000 MG PO ×2 (07:44→20:14)
[2024-11-17] MEDS: VITAMIN C 500 MG PO (07:44)
[2024-11-17] MEDS: PROTONIX 40 MG PO (07:44)
[2024-11-17] MEDS: MAGNESIUM OXIDE 500 MG PO ×2 (07:44→20:14)
[2024-11-17] MEDS: ELIQUIS 5 MG PO ×2 (07:44→20:13)
[2024-11-17] MEDS: SENOKOT-S 1 TABLET PO (07:44)
[2024-11-17] MEDS: ZINC 50 MG PO (07:44)
[2024-11-17] MEDS: LOW STRENGTH ASPIRIN 81 MG PO (07:44)
[2024-11-17] MEDS: LASIX 20 MG IV ×2 (07:44→15:38)
[2024-11-17] MEDS: VITAMIN D3 (cholecalciferol) 25 MCG PO (07:44)
[2024-11-17] MEDS: THERAGRAN 1 TABLET PO (07:44)
[2024-11-17] MEDS: KCL 20 MEQ PO ×2 (07:44→20:13)
[2024-11-17] MEDS: NEURONTIN 100 MG PO ×3 (07:44→22:49)
[2024-11-17] MEDS: PACERONE 200 MG PO ×3 (07:44→22:49)
[2024-11-17] MEDS: MUCINEX 600 MG PO ×2 (07:45→20:14)
[2024-11-17] MEDS: KCL 40 MEQ PO (07:57)
--- NOTE | 2024-11-17 08:30 | PTCARENOTE ---
Patient received from disability insurance hearing officer RN; AAOx3, responds spontaneously to RN and follows commands; AKUTAN, Flat affect; VSS; Afib with PVC's on monitor; +2 anasarca; +1 DP and +2 radial pulses; CRUZ; Lungs with fine, crackles at left base; SpO2 95-98% on
RA; IS 500 ml; Patient urinating yellow, concentrated urine; Surgical sites intact; LIJ Cordis with SLIC; PIVx1 - #22 LAC; See nursing documentation for further information
--- NOTE | 2024-11-17 09:15 | PTCARENOTE ---
LIJ Cordis and SLIC removed at bedside by RN; No complications noted and VSS; Patient lying comfortably in bed
--- NOTE | 2024-11-17 09:29 | CM ---
Pricing on Eliquis under the patient's [employer], ID# [id number], is covered at $564.52. The patient has a $590 deductible and then she is responsible for 23% of cost, which is approx $130 for a 30 day supply. I will place a free 30 day coupon in
her red discharge folder.
[2024-11-17] MEDS: NSS IV (11:39)
[2024-11-17] MEDS: LOPRESSOR 12.5 MG PO ×2 (11:39→20:13)
[2024-11-17] MEDS: MAGNESIUM SULFATE 102 GRAMS IV (12:08)
--- NOTE | 2024-11-17 12:16 | PTCARENOTE ---
Patient with frequent PVC's on monitor; VSS; Patient denies dizziness, lightheadedness, or palpitations; CVNP Sarahy Mendez notified - PO metoprolol restarted and IV Magnesium Sulfate 1 gm ordered and given
--- NOTE | 2024-11-17 12:19 | CM ---
Chart reviewed. Patient is independent of ADLS, lives alone in a 1 ST, 2 TOBY, 0 DME. Patient's sister is traveling from [place] to stay with the patient once medically ready for discharge. PT/OT evaluation recommending Acute Rehab. After
long discussion patient is agreeable. [facility] does not have any beds available until at least Thursday. Referral sent to [facility]. Waiting on phone call from [facility] to assess their bed availability. Plan is for the patient
to go to Acute Rehab when medically stable for discharge. CM to follow
--- NOTE | 2024-11-17 12:23 | CON.MD ---
Consultation - Medical
-
Chief Complaint:�Difficulty with daily activities after heart surgery
�
History of Present Illness:�84-year-old female with PMH (as below) presented to [facility] on 11/08/2024 for an elective left atrial maze, right atrial maze, left atrial appendage exclusion, radical mitral valve repair and tricuspid valve
repair by Dr. Salbador Osborne. Patient noted with a brief episode of V-fib necessitating resuscitation thought secondary to MicroAir emboli. Left atrium noted with moderate to severe right ventricular systolic dysfunction. Patient also had rising
lactate level and cardiogenic shock with 2D echo noting significantly worse RV function. Impella was placed for right ventricular support with improvement of lactic acid. Patient was successfully extubated. Also with thrombocytopenia requiring
platelet transfusion and holding of aspirin. Postoperative hyponatremia into the upper 120s improving to the low 130s. Eliquis resumed 11/13.
�
Past Medical History:�Mitral valve prolapse, mitral valve regurgitation, PVCs, tricuspid regurgitation, TIA, atrial fibrillation, migraine headaches, osteoporosis, hypercholesterolemia, supraventricular tachycardia, dextroscoliosis, heart murmur,
CHF with preserved ejection fraction, insomnia
Procedure History:�Right knee arthroscopy 2018, cardiac catheterization, tonsillectomy, cataract removal 2010
Family History:�Father with leukemia. Mother with colon cancer. Sibling with lung cancer. Son with hypertension.
�
Social History:�
Functional Level Premorbidly:�Independent with all activities�
Functional Level Currently:�Mod assist bed mobility, min assist transfer, min assist ambulate 45 feet x 2 with rolling walker. Max assist toileting, mod assist upper and lower body dressing.
�
Tobacco:�Denies�
Alcohol:�Denies�
Drug use:�Denies�
�
Lives with:�Alone,
24-hour assistance available:�Sister will stay with her postoperatively
Number of floors:�1+1
# steps to enter:�1
Driving:�Yes
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
�
�
Allergies:�
Allergy/AdvReac Type Severity Reaction Status Date / Time
No Known Allergies Allergy Verified 10/20/24 07:52
Review of Systems:�
Constitutional: (x) sbNormal _fatigue
Eye: (x) Normal _
Ear/Nose/Throat: (x) Normal _
Respiratory: (x) Normal _
Cardiovascular: (x) abNormal _valve surgery
Gastrointestinal: (x) Normal _
Genitourinary: (x) Normal _
Musculoskeletal: (x) Normal _denies chest pain
Integumentary: (x) Normal _
Neurologic: (x) Normal _
Psychiatric: (x) Normal _
Endocrine: (x) Normal _
Hematologic/Lymphatic: (x) Normal _
Allergic/Immunologic: (x) Normal _
�
Medications:�
Active Current Visit Medication List
Category Date Time Status
0.9% Sodium Chloride 500 ml [Nss] 500 ml Med 11/08/24 11:12 Active
IV CORDIS
0.9% Sodium Chloride 500 ml [Nss] 500 ml Med 11/08/24 17:00 Active
IV [id number]
Acetaminophen [Tylenol] Med 11/08/24 14:00 Active
1,000 mg PO TID@0600,1400,2200
Acetaminophen [Tylenol] Med 11/08/24 11:12 Active
650 mg PO Q4HPRN PRN
Amiodarone [Pacerone] Med 11/08/24 16:00 Active
200 mg PO TID
Apixaban [Eliquis] Med 11/13/24 20:00 Active
5 mg PO BID
Ascorbic Acid [Vitamin C] Med 11/08/24 11:12 Active
500 mg PO DAILY
Aspirin Chewable [Low Strength Aspirin] Med 11/09/24 08:00 Active
81 mg PO DAILY
Bisacodyl [Dulcolax] Med 11/08/24 11:12 Active
10 mg RECTAL DAILYPRN PRN
Calcium Carbonate [Oscal Greg 500] Med 11/08/24 20:00 Active
1,000 mg PO BID
Cholecalciferol (Vitamin D3) [VITAMIN D3 ( Med 11/09/24 08:00 Active
cholecalciferol)]
25 mcg PO DAILY
Cyclobenzaprine HCl [Flexeril] Med 11/08/24 11:12 Active
5 mg PO Q8HPRN PRN
Docusate W/Senna [Senokot-S] Med 11/08/24 20:00 Active
1 tablet PO Q12
Flush (0.9% Sodium Chloride) [Flush (Nss)] Med 11/08/24 12:00 Active
See Dose Instructions IV PER PROTOCOL
Furosemide [Lasix] Med 11/15/24 08:00 Active
20 mg IV BID AT 0800,1600
Gabapentin [Neurontin] Med 11/08/24 11:12 Active
100 mg PO TID
Guaifenesin [Mucinex] Med 11/15/24 08:00 Active
600 mg PO Q12
Magnesium Hydroxide [Milk of Magnesia] Med 11/08/24 11:12 Active
30 ml PO BIDPRN PRN
Magnesium Oxide Med 11/09/24 08:00 Active
500 mg PO BID
Metoprolol [Lopressor] Med 11/09/24 08:00 Active
12.5 mg PO Q12
Multivitamin [Theragran] Med 11/09/24 08:00 Active
1 tablet PO DAILY
Ondansetron Injectable [Zofran] Med 11/08/24 11:12 Active
4 mg IV Q8HPRN PRN
Oxycodone [Roxicodone] Med 11/08/24 11:12 Active
2.5 mg PO Q4HPRN PRN
Oxycodone [Roxicodone] Med 11/08/24 11:12 Active
5 mg PO Q4HPRN PRN
Pantoprazole [Protonix] Med 11/09/24 08:00 Active
40 mg PO DAILY
Potassium Chloride [KCl] Med 11/17/24 08:00 Active
20 meq PO BID
Remove Patch [Remove Lidocaine Patch] Med 11/09/24 20:00 Active
1 patch REMOVE DAILY@1999
Zinc 50mg (Zinc Sulfate 220mg) [Zinc] Med 11/09/24 08:00 Active
50 mg PO DAILY
�
Vitals:�
Temp Pulse Resp BP Pulse Ox
97.7 F 107 18 114/56 98
11/17/24 11:37 11/17/24 11:37 11/17/24 11:37 11/17/24 11:37 11/17/24 11:37
Height 5 ft
Actual Weight 59.5 kg
Body Mass Index (BMI) 25.6
�
Physical Exam:�
General Appearance/Observation: Well-developed, well-nourished female in no apparent distress.�
Pain/Comfort Assessment: Denies currently
Mood/Affect: Appropriate�
�
Integumentary/Operative Site:�Sternal incision healing well. Drain sites not evaluated.
�� Pressure Ulcer Evaluation: absent over heels.�
�
Eyes: Conjunctiva/Lids: normal��� Pupils: pupils equal round and reactive to light and Accommodation
Ears/Nose/Throat: oral mucosa moist, throat clear.������������ Lips/Teeth/Gums: normal
Cardiovascular: Heart: regular, no murmur�
Pulses: dorsalis pedis 2+ bilaterally�
Respiratory: Respiratory Effort/Chest Expansion: normal������ Auscultation: Clear to auscultation bilaterally
Gastrointestinal: abdomen not tender, no distension, normal abdominal bowel sounds
Genitourinary: No Zee�
Rectal Exam: Deferred�
Extremities:�Edema: None�Cyanosis: None�Trophic�changes: None
�
Neurology Exam:
Orientation: Alert, Oriented to self, Time, Place�
Memory: Intact for recent medical concerns
Comprehension: Intact
Two step command: Intact
Cranial Nerves:
�� CNII:�Pupillary light reflex: Intact���Visual Field: Intact
�� CN III, IV, : Extraocular muscles: Intact�
�� CN V:�Facial Sensation�at�Forehead: Intact,�Maxilla: Intact,�Mandible: Intact
�� CN VII:�Facial movement: Symmetric
�� CN VIII:�Hearing: Normal
�� CN IX/X:�Speech & swallow: Normal,�Position of Uvula: Midline
�� CN XI:�Shoulder shrug: Symmetric
�� CN XII:�Tongue protrusion: Midline
Sensory:
�� Light touch: Intact in bilateral upper and lower extremities
�
Reflexes:
�� Biceps: 2+ bilaterally
�� Brachioradialis: 2+ bilaterally
�� Triceps: 2+ bilaterally
�� Patellar: 2+ bilaterally
�� Achilles: 2+ bilaterally
�� Babinski: Down going bilaterally
�� Clonus: None
�� Denice: Negative bilaterally�
Cerebellar: Dysmetria/Ataxia: None�
Musculoskeletal: Motor: (Manual muscle scale 0-5)�
Muscle SA EF WE EE FF FA HF KE DF EHL PF
Right� NT >3 5 >3 5 5 4 5 5 5 5
Left NT >3 5 >3 5 5 4 5 5 5 5
�
Tone: Normal in all extremities�
Range of Motion: Passively within normal limits in all extremities�
�
Lab Results
Laboratory Data
11/17/24 03:18
11/17/24 03:18
PT 13.1 Sec (11.4-14.6) 11/13/24 07:55
INR 0.96 11/13/24 07:55
APTT 32.1 Sec (23.4-35.0) 11/13/24 07:55
Total Bilirubin 1.4 mg/dl (0.2-1.3) H 11/16/24 03:21
Direct Bilirubin 0.2 mg/dl (0.0-0.4) 11/16/24 03:21
AST 28 U/L (14-36) 11/16/24 03:21
ALT 23 U/L (0-35) 11/16/24 03:21
Alkaline Phosphatase 76 U/L (38-126) 11/16/24 03:21
Total Protein 5.1 g/dl (6.3-8.2) L 11/16/24 03:21
Albumin 3.2 g/dl (3.5-5.0) L 11/16/24 03:21
�
Diagnostic Results:�as per HPI�
�
Assessment
84-year-old female with PMH (Mitral valve prolapse, mitral valve regurgitation, PVCs, tricuspid regurgitation, TIA, atrial fibrillation, migraine headaches, osteoporosis, hypercholesterolemia, supraventricular tachycardia, dextroscoliosis, heart
murmur, CHF with preserved ejection fraction, insomnia�) with 11/08/2024 for an elective left atrial maze, right atrial maze, left atrial appendage exclusion, radical mitral valve repair and tricuspid valve repair by Dr. Salbador Osborne, with postop
anemia, thrombocytopenia requiring platelet transfusion and holding of aspirin, and hyponatremia into the upper 120s improving to the low 130s with ADL and ambulatory dysfunction
�
Plan�
PM&R�PT/OT to increase independence with ADLs, improve balance, coordination, endurance, strength, mobility, community reintegration, decreased burden of care on others and family education.�
�
Mitral/tricuspid valve repair 11/08/2024: Sternal precautions, apixaban
Hypercholesterolemia: Not currently on medication
Atrial fibrillation: Apixaban anticoagulation and rate control with amiodarone and metoprolol. Had maze and left atrial appendage exclusion.������������������������������������������
CHF: EF 50�55%, beta daniella, monitor fluid status�
Postoperative anemia: 8.9 from 9.8 from 9.3.� Continue to monitor.�
Thrombocytopenia: Trending up, monitor. If platelets less than 50,000 recommend keeping therapies to bedside. If platelets less than 20,000 will use further caution with activity levels and hold therapy for platelets less than 10,000.�
Hypokalemia: Replace as necessary and monitor.
Psych: Monitor mood, medications as needed.�
Skin: monitor for pressure sores/rashes/lesions.�
Pain: acetaminophen or oxycodone as needed.�
Bowel: Colace and Senna, PRN bisacodyl.�
Bladder: Time void, PVRs, PRN straight cath.�
GI Prophylaxis: Pantoprazole�
DVT Prophylaxis: Mechanical and Eliquis.�
Pulmonary: Incentive spirometry�
Safety: Continue to reinforce assistance with all transfers.�
Code Status:� Full code
Dispo�(date/plan/equipment needs): Home with family care.� Social history reviewed.�
Functional and Medical Goals:�Modified Independent with ADL�s, ambulation, transfers�
Discharge Destination:�Acute inpatient rehabilitation�
�
Thank you for allowing me to care for your patient. Please contact me with any questions or concerns.
Consultation
-
Date/Time Consultation Performed: 11/17/2024
Requesting Provider: Dr. Salbador Osborne
Performing Provider: Dr. Andres Moreno
Reason for Consultation: Rehab placement
--- NOTE | 2024-11-17 16:46 | W.PN.CARDCBS ---
Addendum entered and electronically signed by Lucie Aden MD 11/17/24 18:38:
I saw and examined the patient.
The Road Roller Operator's note was reviewed and I agree with the note.
Comment:
Complex hospital course requiring multiple pressors and Impella device.
She is s/p mitral valve repair, tricuspid repair. She has had Paroxysmal atrial fibrillation for which she remains in atrial fibrillation currently on oral anticoagulation although interrupted during hospital stay and on amiodarone. She did undergo
surgical right and left atrial maze. She is status post Left atrial appendage clip. She continues to slowly improve.
She continues to appear volume overloaded today although hemodynamically stable and oxygenating well. She has lower extremity edema to thighs. She tells me her dry weight is generally 110 pounds while currently of 131 pounds. She is diuresing
each day.
-Continue current diuretic. Continue to follow volume status.
-Continue usual postop care
-Continue anticoagulation
-Continue amiodarone
-Once euvolemic and 4 weeks post anticoagulation consider cardioversion at that time. If clinical change could consider SARAI/cardioversion sooner
-Follow telemetry and EKGs
Original Note:
Today's Communication / Plan
-
She's had a 3.8 gram amio PO load thus far
Back on Eliquis since 11/13/24
Recommend outpatient elective CV in 4 weeks if remains in Afib
Impression / Plan
-
PCP: Dayana Dotson
Mechanical Engineering Draftsperson: Quinten Pepper
Impression:
Severe Mitral valve regurgitation
s/p mitral valve repair with 34 mm band annuloplasty band 11/08/2024
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
s/p tricuspid repair with 30 mm band annuloplasty band 11/08/2024
Paroxysmal atrial fibrillation
s/p right and left atrial maze (combination of cryo and RF ablation) 11/08/2024
Left atrial appendage clip 45 mm device 11/08/2024, Dr. Osborne
PVCs
h/o TIA
Paroxysmal Atrial fibrillation
Osteoporosis
Supraventricular tachycardia
Heart failure with preserved ejection fraction
Hypernatremia
Cardiac catheterization 10/05/2024: LM: Patent. LAD: Patent. Left circumflex: Patent. RCA: Patent. HEMODYNAMIC FINDINGS (mmHg): LV(s/d,EDP): 115/12, 17; Ao(s/d,m): 115/67, 90. LVG EF 65%, +4 MR
Echo 09/12/2024: EF 50 to 55%. No regional wall motion abnormalities. Mild concentric LVH. Normal RV size and function. Severely dilated left atrium with volume index 57.0 mL/m2. Severe mitral regurgitation with moderate mitral annular
calcification. Moderate tricuspid regurgitation. RVSP 33.3 mmHg.
Intra-op SARAI 11/08/2024: Severe MR with prolapse of P2 with flail segment. Mild to moderate TR. By atrial enlargement. Post operative SARAI status post MV repair with annuloplasty band no paravalvular leak and leaflets functioning appropriately.
Mean gradient 2. Status post TR repair with 30 mm annuloplasty band with residual trace TR, mean gradient 1 mmHg. EF 45%. Status post left atrial appendage exclusion clip well-seated no flow seen into the left atrial appendage. Significant amount
of residual gas/air in left atrium. Moderate to severe RV systolic dysfunction.
Echo 11/08/2024: EF 50-55%, RV top normal size, s/p MV repair with peak/mean gradients across the mitral valve of 6/3 mmHg, respectively, no MR, s/p TV repair with a mean gradient of 1 mmHg, trace TR, normal pericardium without effusion.
Echo 11/11/2024: EF 50 to 55%, reduced RV systolic function, status post MV repair and mitral valve opens normally with trace MR
Plan:
-HD stable off of dobutamine for more than 24 hours
-Outpatient dose of Lopressor 50 mg BID was decreased to 12.5 mg BID and dose held for symptomatic hypotension, but experiencing more frequent PVCs on telemetry 11/17/2024 and so plan is for dose to be given along with magnesium sulfate rider
-EF 50-55% by echo 11/11/24 following RP Impella removal
-Tele reviewed by me 11/17/24 and remains in Afib. Patient with known paroxysmal Afib and had left and right atrial maze (combination of cryo and RF ablation) on 11/08/24. Patient being loaded with amiodarone 200 mg TID and has received a 3.8 gram
load as of 11/17/2024. Recommend ongoing OAC and amiodarone and if remains in A-fib after 4 weeks as an outpatient could perform elective outpatient CV
-Outpatient dose of Eliquis 5 mg BID restarted 11/13/24. Patient had NENA exclusion 45 mm device 11/08/24
-Patient being evaluated for [facility]
HPI 11/08/2024: Patient is a 84-year-old female with severe symptomatic mitral valve regurgitation, moderate to severe tricuspid regurgitation, heart failure with preserved ejection fraction, paroxysmal atrial fibrillation on chronic anticoagulation
with Eliquis, history of TIA and migraine headache. Patient developed symptomatic mixed valvular disease and worsening heart failure symptoms requiring diuretic therapy. She underwent cardiac catheterization September 2024 which demonstrated no
significant coronary artery disease. She now presents for elective valve repair of mitral and tricuspid valves as well as maze and left atrial appendage clipping. Cardiology being asked to see patient postoperatively.
Progress Note - Mechanical Engineering Draftsperson
Subjective
Date of Service: November 17, 2024
Feels well, she was too tired to try steps during PT today
Objective
Labs:
11/17/24 03:18
11/17/24 03:18
Labs
Hgb 8.9 g/dL (12.0-16.0) L 11/17/24 03:18
Hct 26.3 % (37.0-47.0) L 11/17/24 03:18
Plt Count 128 10^3/uL (130-400) L 11/17/24 03:18
PT 13.1 Sec (11.4-14.6) 11/13/24 07:55
INR 0.96 11/13/24 07:55
APTT 32.1 Sec (23.4-35.0) 11/13/24 07:55
Sodium 134 mmol/L (135-145) L 11/17/24 03:18
Potassium 3.5 mmol/L (3.5-5.1) 11/17/24 03:18
BUN 23 mg/dl (7-17) H 11/17/24 03:18
Creatinine 0.7 mg/dL (0.6-1.0) 11/17/24 03:18
Glucose 92 mg/dl (70-99) 11/17/24 03:18
Vital Signs and I&O:
Vital Signs
Temp Pulse Resp BP Pulse Ox
97.6 F 68 15 112/52 96
11/17/24 15:36 11/17/24 15:38 11/17/24 15:36 11/17/24 15:38 11/17/24 15:38
Vital Signs
Temp Pulse Resp BP Pulse Ox
97.6 F 68 15 112/52 96
11/17/24 15:36 11/17/24 15:38 11/17/24 15:36 11/17/24 15:38 11/17/24 15:38
Intake & Output
11/15/24 11/16/24 11/17/24 11/18/24
06:59 06:59 06:59 06:59
Intake Total 318.0 / 331.0 339.5 / 339.5 711.5 / 711.5 520 / 520
Output Total 1020 / 1020 2205 / 2205 1800 / 1800 1300 / 1300
Balance -702.0 / -689.0 -1865.5 / -1865.5 -1088.5 / -1088.5 -780 / -780
Physical Exam
Physical Exam
GEN: NAD. AAOx3
LUNGS: RA.
CV: Afib on tele.
--- NOTE | 2024-11-17 16:50 | PTCARENOTE ---
Patient ambulating with RN in hallway this afternoon; Resting comfortably in chair
[2024-11-17] MEDS: SENOKOT-S PO (20:05)
--- NOTE | 2024-11-17 20:30 | PTCARENOTE ---
Patient received OOB in chair watching television. Patient A+A+Ox3. No neurological deficits noted. Patient assisted to bathroom with assist x1 and use of rolling walker. Sternal Precautions. No c/o headache, dizziness or lightheadedness.
Patient voided. Small brown BM. Patient brushed teeth. Patient assisted to bed. Mild CRUZ. Room air. SpO2 97%. Atrial Fibrillation. Heart rate 60-80's. Patient with no c/o chest pain, pressure or discomfort. Abdomen soft, nontender.
Normoactive bowel sounds. No c/o nausea. No vomiting. Bilateral lower extremity edema. Positive, palpable pulses. Sternal incision intact - Surgical adhesive - Open to air. Dressing to right neck region intact. Patient with no c/o back or
flank pain. Assessment as documented.
[2024-11-17] MEDS: XANAX 0.25 MG PO (22:50)
[2024-11-18] VITALS (15 sets, daily range): BP systolic 91–127; BP diastolic 49–76; PULSE 71; O2SAT 97; BMI 25.5
--- NOTE | 2024-11-18 00:30 | PTCARENOTE ---
Patient sleeping without difficulty. Xanax 0.25 mg PO given for sleep. No further changes from previous assessment.
--- NOTE | 2024-11-18 02:58 | W.PN.CT ---
Today's Communication / Plan
-
-pod #10
-no significant issues overnight
-Dobutamine is off 11/16. Metoprolol started yesterday
-remains in a-fib. Eliquis started 11/13 (on ASA and Eliquis)
-continue diuresis, transitioned to oral yesterday (Cr is stable 0.7)
-follow b/l pleural effusions
-continue PT/OT.
-plans for d/c [facility] vs home when ready
Assessment / Plan
-
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
maze [combination of RF and cryoablation]; Left atrial appendage exclusion [45 mm clip] on 11/08/[address] Osborne, pod #9
- s/p Successful placement of an Impella RP flex via the right internal jugular vein on 11/08/[address] Camejo (dcd on 11/11)
- Intraop SARAI: LVEF preop was 55% with no significant regional wma. She does have a history of cardiomyopathy with mildly dilated right and left ventricles. Her left atrium and right atrium are also dilated. Following surgery EF did reduce to
+45% and she had some septal inferior wall hypokinesis with dyskinesia. The lateral wall was moving appropriately. Her right ventricle did appear to be mild to mild to moderately depressed after valve repair. At the conclusion of the case off
cardiopulmonary bypass there was no residual mitral valve insufficiency and no residual tricuspid valve insufficiency. The mean gradient across the mitral valve was 2 mmHg and the mean gradient across tricuspid valve was 1 mmHg. She did have
significant PACs conclusion of the case and required defibrillation x 2 likely secondary to air entrainment down the coronary. Follow-up transesophageal echocardiogram demonstrated that there was still residual air coming out of her pulmonary veins
and sitting in her left atrium.
- Degenerative mitral valve disease with severe insufficiency, type II pathology with some component of type I pathology
- Functional tricuspid valve insufficiency
- PVCs
- TIA
- Atrial fibrillation
- Osteoporosis
- Supraventricular tachycardia
- CHF, significant volume overload
- Acute postop blood loss anemia - s/p 1 pRBC on 11/08
- Acute postop thrombocytopenia - s/p 1 unit platelet on 11/09
- Acute postop hypovolemia with subsequent hypervolemia
- Acute postop atelectasis, b/l small pleural effusions, R>L
Subjective
Procedure
s/p Radical mitral valve repair; Tricuspid valve repair [30 mm band annuloplasty]; Open surgical left atrial maze and right atrial maze [combination of RF and cryoablation]; Left atrial appendage exclusion [45 mm clip] on 11/08/[address] Osborne
-
Date of Service: November 18, 2024
Objective Data
-
Lab Results
11/18/24 05:00
11/18/24 05:00
PT 13.1 Sec (11.4-14.6) 11/13/24 07:55
INR 0.96 11/13/24 07:55
APTT 32.1 Sec (23.4-35.0) 11/13/24 07:55
Vital Signs
Vital Signs
Temp Pulse Resp BP Pulse Ox
98.1 F 69 16 133/83 97
11/17/24 22:35 11/18/24 04:00 11/17/24 22:35 11/17/24 22:49 11/18/24 03:02
CT Intake/Output/Weight
11/17/24 11/17/24 11/18/24
06:59 18:59 06:59
Intake Total 880 / 1120 240 / 1120
Output Total 400 / 1800 1600 / 2000 400 / 2000
Balance -400 / -1088.5 -720 / -880 -160 / -880
SaO2: 97
Physical Exam
-
General: AOx3
Cardiovascular: Irregular rate & rhythm
Respiratory: Decreased Breath Sounds
Sternum: Stable
Incision: Clean, Dry and Intact
Extremities: Edema +2
[2024-11-18 05:25] LABS: Hematocrit 29.6 % (37.0-47.0); Mean Corp Hgb Conc. 33.8 g/dL (33.0-37.0); Mean Corpuscular Hgb 31.5 pg (27.0-31.0); Mean Corpuscular Volume 93.4 fL (81.0-99.0); Mean Platelet Volume 8.8 fL (7.4-10.4); Platelet Count 160 10^3/uL (130-400); Red Blood Cell Count 3.17 10^6/uL (4.20-5.40); Red Cell Dist. Width 17.1 % (11.5-14.5); White Blood Cell Count 6.9 10^3/uL (4.8-10.8)
[2024-11-18 05:35] LABS: Blood Urea Nitrogen 24 mg/dl (7-17); Calcium 8.5 mg/dl (8.4-10.2); Carbon Dioxide 29 mmol/L (22-30); Chloride 103 mmol/L (98-107); Estimated Creatinine Clearance 48 ml/min; Glucose 100 mg/dl (70-99); Potassium 4.5 mmol/L (3.5-5.1); Sodium 135 mmol/L (135-145); eGFR > 60.00
[2024-11-18] MEDS: TYLENOL PO (06:00)
--- NOTE | 2024-11-18 06:00 | PTCARENOTE ---
Patient A+A+Ox3. No neurological deficits noted. No c/o pain or discomfort. AM lab work collected and sent. Patient given CHG bath and linens changed. New surgical bra. Patient assisted to bathroom with assist x1 and use of rolling walker
without difficulty. Patient voided - 100 ml dark red urine - No clots noted - No c/o bladder pain, discomfort, burning or spasms - PA for CT Surgery, Andres Diallo PA-C, made aware and arrived to see urine and speak with patient. Standing scale
weight 59.3 kg. Patient now sitting in chair. Assessment/Interventions as documented.
[2024-11-18] MEDS: PROTONIX 40 MG PO (08:18)
[2024-11-18] MEDS: VITAMIN C 500 MG PO (08:18)
[2024-11-18] MEDS: ZINC 50 MG PO (08:18)
[2024-11-18] MEDS: KCL 20 MEQ PO ×3 (08:18→20:14)
[2024-11-18] MEDS: SENOKOT-S 1 TABLET PO ×2 (08:18→20:11)
[2024-11-18] MEDS: MUCINEX 600 MG PO ×2 (08:19→20:11)
[2024-11-18] MEDS: OSCAL CAL 500 1000 MG PO ×2 (08:19→20:13)
[2024-11-18] MEDS: THERAGRAN 1 TABLET PO (08:19)
[2024-11-18] MEDS: LASIX 20 MG PO (08:19)
[2024-11-18] MEDS: MAGNESIUM OXIDE 500 MG PO ×2 (08:19→20:13)
[2024-11-18] MEDS: LOPRESSOR 12.5 MG PO ×2 (08:19→20:11)
[2024-11-18] MEDS: VITAMIN D3 (cholecalciferol) 25 MCG PO (08:20)
[2024-11-18] MEDS: NEURONTIN PO ×2 (08:20→16:28)
[2024-11-18] MEDS: PACERONE 200 MG PO ×3 (08:20→22:09)
--- NOTE | 2024-11-18 08:49 | PTCARENOTE ---
Patient received from hotel night auditor RN; AAOx3, responds spontaneously to RN and follows commands; [place] affect; VSS; Afib with PVC's on monitor; +2 B/L LE edema and trace anasarca; +1 DP and +2 radial pulses; CRUZ; Shallow respirations; Lungs with
fine, crackles at left base; SpO2 94-99% on RA; IS 750 ml; Patient urinated bloody urine overnight; Surgical sites intact; PIVx1 - #22 LAC; See nursing documentation for further information
[2024-11-18] MEDS: LASIX 20 MG IV (09:02)
[2024-11-18] MEDS: NSS IV (10:23)
[2024-11-18] MEDS: LOW STRENGTH ASPIRIN 81 MG PO (11:07)
[2024-11-18] MEDS: ELIQUIS 5 MG PO (11:07)
[2024-11-18 11:13] LABS: Urine Albumin 2+ (Neg - Trace); Urine Bilirubin Negative (Negative); Urine Character Slightly Cloudy (Clear); Urine Color Yellow; Urine Glucose Negative (Negative); Urine Ketone Negative (Negative); Urine Leukocyte 3+ (Negative); Urine Nitrite Negative (Negative); Urine Occult Blood 4+ (Negative); Urine Urobilinogen Negative (Neg - 1+)
[2024-11-18] MEDS: LASIX 40 MG IV ×2 (11:33→17:24)
--- NOTE | 2024-11-18 11:45 | CM ---
Chart reviewed. Patient is OOB sitting in the chair. Cardiology would like to diurese the patient. Patient is independent of ADLS, lives alone in a 1 STH, 2 TOBY, 0 DME. Patient's sister was traveling from [facility] to stay with the patient when
medically stable. PT evaluation recommending Acute Rehab. Patient prefers [facility], but willing to go to [facility] if no beds available at [place]. Plan is for the patient to go to Acute Rehab. CM to follow
[2024-11-18 11:48] LABS: Urine Squamous Cell 13 /LPF (Few)
[2024-11-18 11:49] LABS: Urine Amorphous Seen
[2024-11-18 11:50] LABS: Urine White Cell 40-50 /HPF (0-5)
[2024-11-18 11:51] LABS: Urine Bacteria Many (Negative)
--- NOTE | 2024-11-18 12:30 | PTCARENOTE ---
Bloody urine in AM but now resolved - urology consulted and UA with reflex UC sent to lab; IV Lasix increased to 40 mg BID; PO Potassium 20 mEq ordered and given; Knee high TEDs removed and thigh high TEDs applied due to increased thigh swelling
--- NOTE | 2024-11-18 12:36 | W.PN.CARDCBS ---
Addendum entered and electronically signed by Lucie Aden MD 11/18/24 13:09:
I saw and examined the patient.
The Wagon Winder's note was reviewed and I agree with the note.
Comment: Complex history with recent mitral valve repair, tricuspid valve repair, right and left atrial maze, left atrial appendage clip and Impella support.
She remains significantly volume overloaded with preprocedure weight around 110 pounds and currently [address] surgery service. Slow steady diuresis. Lasix 40 mg IV twice daily. Will receive 60 mg total this morning.
Continue to watch input/output and daily weights. Replete electrolytes as needed. Follow blood pressure.
Eliquis dosing decreased given age and weight to 2.5 mg twice daily. Agree. She has atrial fibrillation which has been persistent and plan will be as an outpatient once euvolemic and on anticoagulation for at least 4 weeks consider confucianism of
sinus rhythm with cardioversion. Continue amiodarone for now.
Exam today irregularly irregular without significant murmur. Decreased breath sounds at the bases bilateral. +2 lower extremity edema. Healing ecchymosis left posterior thigh.
I have reviewed independently patient's telemetry, labs and vital signs. Echo also reviewed from 11/17/2024.
Chest x-ray remains with moderate-sized left pleural effusion.
Original Note:
Today's Communication / Plan
-
diurese
decrease eliquis to 2.5mg BID
continue post op care
OP follow up with ATC
Impression / Plan
-
PCP: Dayana Dotson
Beeswax Bleacher: Quinten Pepper
Impression:
Severe Mitral valve regurgitation
s/p mitral valve repair with 34 mm band annuloplasty band 11/08/2024
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
s/p tricuspid repair with 30 mm band annuloplasty band 11/08/2024
Paroxysmal atrial fibrillation
s/p right and left atrial maze (combination of cryo and RF ablation) 11/08/2024
Left atrial appendage clip 45 mm device 11/08/2024, Dr. Osborne
PVCs
h/o TIA
Paroxysmal Atrial fibrillation
Osteoporosis
Supraventricular tachycardia
Heart failure with preserved ejection fraction
Hypernatremia
Cardiac catheterization 10/05/2024: LM: Patent. LAD: Patent. Left circumflex: Patent. RCA: Patent. HEMODYNAMIC FINDINGS (mmHg): LV(s/d,EDP): 115/12, 17; Ao(s/d,m): 115/67, 90. LVG EF 65%, +4 MR
Echo 09/12/2024: EF 50 to 55%. No regional wall motion abnormalities. Mild concentric LVH. Normal RV size and function. Severely dilated left atrium with volume index 57.0 mL/m2. Severe mitral regurgitation with moderate mitral annular
calcification. Moderate tricuspid regurgitation. RVSP 33.3 mmHg.
Intra-op SARAI 11/08/2024: Severe MR with prolapse of P2 with flail segment. Mild to moderate TR. By atrial enlargement. Post operative SARAI status post MV repair with annuloplasty band no paravalvular leak and leaflets functioning appropriately.
Mean gradient 2. Status post TR repair with 30 mm annuloplasty band with residual trace TR, mean gradient 1 mmHg. EF 45%. Status post left atrial appendage exclusion clip well-seated no flow seen into the left atrial appendage. Significant amount
of residual gas/air in left atrium. Moderate to severe RV systolic dysfunction.
Echo 11/08/2024: EF 50-55%, RV top normal size, s/p MV repair with peak/mean gradients across the mitral valve of 6/3 mmHg, respectively, no MR, s/p TV repair with a mean gradient of 1 mmHg, trace TR, normal pericardium without effusion.
Echo 11/11/2024: EF 50 to 55%, reduced RV systolic function, status post MV repair and mitral valve opens normally with trace MR
Plan:
-looks well, however weight remains up 20 pounds from presurgical weight. recommend aggressive diuresis with IV lasix 40mg BID. Cr stable at 0.7. prior to admission was on bumex 0.5mg daily. d/w CT surgery
-EF 50-55% by echo 11/11/24 following RP Impella removal. EF remains normal s/p MV repair with peak/mean gradients 16/4mmHg and trace MR by repeat echo 11/17.
-remains in rate controlled afib. Patient with known paroxysmal Afib and had left and right atrial maze (combination of cryo and RF ablation) on 11/08/24. continue lopressor 12.5mg Q12H, amiodarone. Recommend ongoing OAC and amiodarone and if remains
in A-fib after 4 weeks as an outpatient could perform elective outpatient CV
-reduce eliquis dose to 2.5mg BID due to age >80 and weight<60Kg.
-Patient being evaluated for [facility]. continue PT/OT
-OP cardiac follow up with ATC
HPI 11/08/2024: Patient is a 84-year-old female with severe symptomatic mitral valve regurgitation, moderate to severe tricuspid regurgitation, heart failure with preserved ejection fraction, paroxysmal atrial fibrillation on chronic anticoagulation
with Eliquis, history of TIA and migraine headache. Patient developed symptomatic mixed valvular disease and worsening heart failure symptoms requiring diuretic therapy. She underwent cardiac catheterization September 2024 which demonstrated no
significant coronary artery disease. She now presents for elective valve repair of mitral and tricuspid valves as well as maze and left atrial appendage clipping. Cardiology being asked to see patient postoperatively.
Progress Note - Beeswax Bleacher
Subjective
Date of Service: November 18, 2024
feeling well. reports continued LE edema
Objective
Labs:
11/18/24 05:00
11/18/24 05:00
Labs
Hgb 10.0 g/dL (12.0-16.0) L 11/18/24 05:00
Hct 29.6 % (37.0-47.0) L 11/18/24 05:00
Plt Count 160 10^3/uL (130-400) D 11/18/24 05:00
PT 13.1 Sec (11.4-14.6) 11/13/24 07:55
INR 0.96 11/13/24 07:55
APTT 32.1 Sec (23.4-35.0) 11/13/24 07:55
Sodium 135 mmol/L (135-145) 11/18/24 05:00
Potassium 4.5 mmol/L (3.5-5.1) D 11/18/24 05:00
BUN 24 mg/dl (7-17) H 11/18/24 05:00
Creatinine 0.7 mg/dL (0.6-1.0) 11/18/24 05:00
Glucose 100 mg/dl (70-99) H 11/18/24 05:00
Vital Signs and I&O:
Vital Signs
Temp Pulse Resp BP Pulse Ox
97.8 F 93 16 100/62 98
11/18/24 11:37 11/18/24 11:35 11/18/24 11:37 11/18/24 11:35 11/18/24 11:37
Vital Signs
Temp Pulse Resp BP Pulse Ox
97.8 F 93 16 100/62 98
11/18/24 11:37 11/18/24 11:35 11/18/24 11:37 11/18/24 11:35 11/18/24 11:37
Intake & Output
11/16/24 11/17/24 11/18/24 11/19/24
07:59 07:59 07:59 07:59
Intake Total 326.5 / 326.5 711.5 / 721.5 1240 / 1360 360 / 360
Output Total 2205 / 2205 1800 / 2150 2100 / 2100 1650 / 1650
Balance -1878.5 / -1878.5 -1088.5 / -1428.5 -860 / -740 -1290 / -1290
Physical Exam
Physical Exam
GEN: No distress, awake, alert, oriented x3. sitting in chair
HEENT: supple, anicteric, mmm, eomi
LUNGS: CTA B/L, no wheezes/rales
CV: Irreg, S1/S2, no murmur
ABD: soft, BS+, NT/ND
EXT: No cyanosis, clubbing. 3+ edema to thighs
NEURO: Gross non-focal
SKIN: Warm, pink, dry. No rash. Sternotomy incision c/d/i.
[2024-11-18] MEDS: TYLENOL 1000 MG PO ×2 (13:45→22:10)
--- NOTE | 2024-11-18 14:58 | PN.CDI ---
CDI
- -
CDI:
Physician Documentation Request
Admit Date: 11/08/24 04:54
Dear Doctor India,
Please review the following and provide your response in the progress notes.
Clinical Indicators:
Cardiology, PN, 11/18
#Chest x-ray remains with moderate-sized left pleural effusion.
#...Heart failure with preserved ejection fraction
#-looks well, however weight remains up 20 pounds from presurgical weight.
#...recommend aggressive diuresis with IV lasix 40mg BID.
PN, 11/18
#-pod #10
#...-continue diuresis, transitioned to oral yesterday (Cr is stable 0.7)
#...-follow b/l pleural effusions
#...- CHF, significant volume overload
#...- Acute postop hypovolemia with subsequent hypervolemia
Based on the above and your clinical assessment, please clarify the acuity and etiology of the volume overload:
Acute on chronic diastolic heart failure
Hypervolemia/volume overload only
Acute non-cardiac pulmonary edema due to other cause (please specify)
Other(please specify)
Use of terms such as suspected, likely, concern for, or probable (associated with a specific diagnosis that is being evaluated, monitored, or treated as if it exists) are acceptable and can be coded in the inpatient setting, when documented at the
time of discharge.
Thank you,
Aziza Hawley RN BSN CCDS
CDI Specialist
please contact via tiger text
Please use your independent medical judgment in providing your response.
--- NOTE | 2024-11-18 15:28 | W.PN.UPDATE ---
Update Note
Progress Note Update
CDI query:
#acute on chronic diastolic heart failure
- discharge delayed due to significant fluid retention
- continue aggressive diureses. Will switch to PO regimen over the weekend
--- NOTE | 2024-11-18 16:36 | PTCARENOTE ---
Patient's BP 91/55 and IV Lasix 40 mg scheduled - CVNP Abi Mendez notified and aware; To recheck BP in an hour and reevaluate if scheduled IV Lasix dose is appropriate
--- NOTE | 2024-11-18 18:15 | CONS.URO ---
Consultation
-
Date/Time Consultation Performed: 11/18/24 1600
Performing Provider: Peffer
Reason for Consultation: Hematuria
Medical History
History of Present Illness
84F with episode of gross hematuria POD 10 after cardiac/mitral valve surgery
No urologic hx
No c/o flank pain, clots, difficulty voiding
No dysuria
Frequency but in setting of active diuresis
Following initial episode hematuria resolved
Urinalysis + for bld, LE, cloudy, many bacteria
Past Medical History
Past Medical History: Other (Mitral valve prolapse, mitral valve regurgitation, PVCs, tricuspid regurgitation, TIA, atrial fibrillation, migraine headaches, osteoporosis, hypercholesterolemia, supraventricular tachycardia, dextroscoliosis, heart
murmur, CHF with preserved ejection fraction, insomnia)
Social History
Tobacco: Non-smoker
Alcohol: None
Family History
Family History: Reviewed & Not Pertinent
Allergies/Home Medications
Allergies
Allergy/AdvReac Type Severity Reaction Status Date / Time
No Known Allergies Allergy Verified 10/20/24 07:52
Home Medications
�Medication �Instructions �Recorded �Confirmed �Type
Lactobacillus acidophilus 10 10,000 mmu cells PO DAILY 10/05/24 11/08/24 History
billion cell capsule (Probiotic) Supplement
Magnesium Maleate 100 mg PO BID Supplement 10/05/24 11/08/24 History
[place] 3 [place] Oil 1 tab PO DAILY Supplement 10/05/24 11/08/24 History
apixaban 5 mg tablet (Eliquis) 5 mg PO BID Blood Clot 10/05/24 11/08/24 History
Prevention/Tx
ascorbic acid (vitamin C) 500 mg 500 mg PO DAILY Supplement 10/05/24 10/20/24 History
tablet (Vitamin C)
bumetanide 1 mg tablet 0.5 mg PO DAILY Fluid 10/05/24 11/08/24 History
Retention/Swelling
cholecalciferol (vitamin D3) 25 25 mcg PO DAILY Supplement 10/05/24 10/20/24 History
mcg (1,000 unit) capsule (Vitamin
D3)
coQ10 (ubiquinol) 100 mg capsule 100 mg PO DAILY Supplement 10/05/24 11/08/24 History
metoprolol tartrate 50 mg tablet 50 mg PO BID Blood Pressure 10/05/24 11/08/24 History
multivitamin with minerals-folic 1 tab PO DAILY Supplement 10/05/24 10/20/24 History
acid 0.4 mg tablet
zinc 50 mg tablet 50 mg PO DAILY Supplement 10/05/24 11/08/24 History
sumatriptan succinate 25 mg tablet 25 mg PO ONCE migraine 10/17/24 11/08/24 History
calcium 500 mg tablet 1,000 mg PO BID Supplement 10/20/24 11/08/24 History
Physical Exam
Vital Signs
Vital Signs
Temp Pulse Resp BP Pulse Ox
97.6 F 80 16 124/56 100
11/18/24 16:26 11/18/24 17:24 11/18/24 16:26 11/18/24 17:24 11/18/24 16:26
Lab / Testing Results
Laboratory Results
11/18/24 05:00
11/18/24 05:00
Physical Exam
General: Well Developed, Well Nourished and No Apparent Distress
Respiratory: Clear
GI: Soft and Non Tender
Genito-urinary: No Costovertebral Tend
Psych: Calm and Intact Judgement
Assessment / Plan
-
84F post cardiac surgery with episode of gross hematuria, resolved on next void
Urine observed PM 11/18 - no gross blood
- UA consistent with UTI
- Start 5 day course Augmentin BID for cystitis pending culture
- change antibiotic PRN if not sensitive to augmentin
- Outpatient follow up for further workup if gross hematuria recurs post discharge
Will sign off - please call with any questions
--- NOTE | 2024-11-18 20:00 | PTCARENOTE ---
2000-Assumed care of patient at 1900. Patient alert and oriented Follows commands,Generalized weakness. patient denies pain at this time. Afib on monitor, heart rate stable in 70's. Pulses normal in bilateral radials and weak on palpation in
pedals pulses, +1 to +2 edema in lower extremities . Teds on. BP stable 105/76
On room air O2 Sat 100%. Lungs diminished and with fine crackles. patient abdomen soft and non tender rounded, bowel sounds present and normal. Toleration po intake. Patient voiding blood tinged urine. Sternal midline incision clean dry and
intact. Chest tube dressing CDI has Surgical Bra in place. Patient ambulated with rolling walker and 1 person assist from bed to bath room Xanax needed for sleep Please see worklist for detail assessment.
[2024-11-18] MEDS: ELIQUIS 2.5 MG PO (20:11)
[2024-11-18] MEDS: AUGMENTIN 875 MG/125 MG 1 TABLET PO (20:11)
[2024-11-18] MEDS: NEURONTIN 100 MG PO (22:10)
[2024-11-18] MEDS: XANAX 0.25 MG PO (22:10)
[2024-11-19] VITALS (8 sets, daily range): BP systolic 104–127; BP diastolic 52–77; PULSE 65; O2SAT 97; BMI 24.2
--- NOTE | 2024-11-19 | PTCARENOTE ---
0000- patient resting comfortably, vital signs stable. denies pain at this time.
--- NOTE | 2024-11-19 04:05 | W.PN.CT ---
Today's Communication / Plan
-
-pod #11
-no significant issues overnight
-remains in a-fib. Eliquis started 11/13 (on ASA and Eliquis)
-continue diuresis with IV diuretics (switch to PO closer to discharge) for fluid overload (Cr is stable )
-follow b/l pleural effusions
-continue PT/OT.
-plans for d/c [facility] when ready
Assessment / Plan
-
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
maze [combination of RF and cryoablation]; Left atrial appendage exclusion [45 mm clip] on 11/08/[address] Osborne, pod #11
- s/p Successful placement of an Impella RP flex via the right internal jugular vein on 11/08/[address] Camejo (dcd on 11/11)
- Intraop SARAI: LVEF preop was 55% with no significant regional wma. She does have a history of cardiomyopathy with mildly dilated right and left ventricles. Her left atrium and right atrium are also dilated. Following surgery EF did reduce to
+45% and she had some septal inferior wall hypokinesis with dyskinesia. The lateral wall was moving appropriately. Her right ventricle did appear to be mild to mild to moderately depressed after valve repair. At the conclusion of the case off
cardiopulmonary bypass there was no residual mitral valve insufficiency and no residual tricuspid valve insufficiency. The mean gradient across the mitral valve was 2 mmHg and the mean gradient across tricuspid valve was 1 mmHg. She did have
significant PACs conclusion of the case and required defibrillation x 2 likely secondary to air entrainment down the coronary. Follow-up transesophageal echocardiogram demonstrated that there was still residual air coming out of her pulmonary veins
and sitting in her left atrium.
- Degenerative mitral valve disease with severe insufficiency, type II pathology with some component of type I pathology
- Functional tricuspid valve insufficiency
- PVCs
- TIA
- Atrial fibrillation
- Osteoporosis
- Supraventricular tachycardia
- CHF, significant volume overload
- Acute postop blood loss anemia - s/p 1 pRBC on 11/08
- Acute postop thrombocytopenia - s/p 1 unit platelet on 11/09
- Acute postop hypovolemia with subsequent hypervolemia
- Acute postop atelectasis, b/l small pleural effusions, R>L
Subjective
Procedure
s/p Radical mitral valve repair; Tricuspid valve repair [30 mm band annuloplasty]; Open surgical left atrial maze and right atrial maze [combination of RF and cryoablation]; Left atrial appendage exclusion [45 mm clip] on 11/08/[address] Osborne
-
Date of Service: November 19, 2024
Objective Data
-
Lab Results
11/18/24 05:00
11/18/24 05:00
PT 13.1 Sec (11.4-14.6) 11/13/24 07:55
INR 0.96 11/13/24 07:55
APTT 32.1 Sec (23.4-35.0) 11/13/24 07:55
Vital Signs
Vital Signs
Temp Pulse Resp BP Pulse Ox
98.2 F 75 16 110/57 97
11/19/24 03:30 11/19/24 03:30 11/19/24 03:30 11/19/24 03:30 11/19/24 03:30
CT Intake/Output/Weight
11/18/24 11/18/24 11/19/24
06:59 18:59 06:59
Intake Total 360 / 1240 360 / 530 170 / 530
Output Total 500 / 2100 2850 / 4250 1400 / 4250
Balance -140 / -860 -2490 / -3720 -1230 / -3720
SaO2: 97
Physical Exam
-
General: AOx3
Cardiovascular: Irregular rate & rhythm
Respiratory: Clear
Sternum: Stable
Incision: Clean, Dry and Intact
Extremities: Edema +1
--- NOTE | 2024-11-19 05:19 | PTCARENOTE ---
Patient up out of bed to chair. denies pain this morning. CHG bath completed,leads changed. Linens and gown changed. VItal sign stable.
[2024-11-19] MEDS: TYLENOL PO ×2 (05:22→12:42)
[2024-11-19 06:06] LABS: Blood Urea Nitrogen 26 mg/dl (7-17); Calcium 8.6 mg/dl (8.4-10.2); Carbon Dioxide 30 mmol/L (22-30); Chloride 102 mmol/L (98-107); Estimated Creatinine Clearance 38 ml/min; Glucose 99 mg/dl (70-99); Potassium 4.4 mmol/L (3.5-5.1); Sodium 136 mmol/L (135-145); eGFR > 60.00
--- NOTE | 2024-11-19 08:00 | PTCARENOTE ---
Resumed care of patient from previous RN. AAOx3 Afib on monitor, HR in 70's. + Pulses +2 edema. CELESTE stockings on. 97% RA. Lungs diminished + bowel sounds. Small BM this AM. Patient voiding blood tinged urine. Foul odor. MSI clean dry and intact.
Chest tube dressing CDI. min assist with rolling walker . IV lasix to be given this AM. will continue ot monitor.
[2024-11-19] MEDS: VITAMIN C 500 MG PO (09:12)
[2024-11-19] MEDS: PACERONE 200 MG PO ×3 (09:12→21:25)
[2024-11-19] MEDS: OSCAL CAL 500 1000 MG PO ×2 (09:13→20:18)
[2024-11-19] MEDS: ZINC 50 MG PO (09:13)
[2024-11-19] MEDS: PROTONIX 40 MG PO (09:13)
[2024-11-19] MEDS: MUCINEX 600 MG PO ×2 (09:13→20:19)
[2024-11-19] MEDS: KCL 20 MEQ PO ×2 (09:14→20:19)
[2024-11-19] MEDS: NEURONTIN 100 MG PO ×3 (09:15→21:25)
[2024-11-19] MEDS: LOW STRENGTH ASPIRIN 81 MG PO (09:15)
[2024-11-19] MEDS: ELIQUIS 2.5 MG PO ×2 (09:15→20:20)
[2024-11-19] MEDS: VITAMIN D3 (cholecalciferol) 25 MCG PO (09:15)
[2024-11-19] MEDS: LOPRESSOR 12.5 MG PO ×2 (09:16→20:21)
[2024-11-19] MEDS: NSS IV (09:17)
[2024-11-19] MEDS: AUGMENTIN 875 MG/125 MG 1 TABLET PO ×2 (09:17→20:16)
[2024-11-19] MEDS: MAGNESIUM OXIDE 500 MG PO ×2 (09:17→20:21)
[2024-11-19] MEDS: SENOKOT-S PO (09:17)
[2024-11-19] MEDS: THERAGRAN 1 TABLET PO (09:17)
[2024-11-19] MEDS: LASIX IV (09:19)
[2024-11-19] MEDS: KCL PO (09:19)
--- NOTE | 2024-11-19 12:22 | W.PN.CARDCBS ---
Today's Communication / Plan
-
Lasix 40 mg IV now as a one-time dose
Bumex 1 mg p.o. twice daily as maintenance will initiate with this evening's dose.
Will need proBNP and magnesium in 1 week
Following acute bed discharge if her weight drops below 115 pounds will be concerned to be over diuresed her and would drop Bumex back to her original outpatient dose of 0.5 mg daily
Impression / Plan
-
PCP: Dayana Dotson
Coding Support Specialist: Quinten Pepper
Impression:
Severe Mitral valve regurgitation
s/p mitral valve repair with 34 mm band annuloplasty band 11/08/2024
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
s/p tricuspid repair with 30 mm band annuloplasty band 11/08/2024
Paroxysmal atrial fibrillation
s/p right and left atrial maze (combination of cryo and RF ablation) 11/08/2024
Left atrial appendage clip 45 mm device 11/08/2024, Dr. Osborne
PVCs
h/o TIA
Paroxysmal Atrial fibrillation
Osteoporosis
Supraventricular tachycardia
Heart failure with preserved ejection fraction
Hypernatremia
Cardiac catheterization 10/05/2024: LM: Patent. LAD: Patent. Left circumflex: Patent. RCA: Patent. HEMODYNAMIC FINDINGS (mmHg): LV(s/d,EDP): 115/12, 17; Ao(s/d,m): 115/67, 90. LVG EF 65%, +4 MR
Echo 09/12/2024: EF 50 to 55%. No regional wall motion abnormalities. Mild concentric LVH. Normal RV size and function. Severely dilated left atrium with volume index 57.0 mL/m2. Severe mitral regurgitation with moderate mitral annular
calcification. Moderate tricuspid regurgitation. RVSP 33.3 mmHg.
Intra-op SARAI 11/08/2024: Severe MR with prolapse of P2 with flail segment. Mild to moderate TR. By atrial enlargement. Post operative SARAI status post MV repair with annuloplasty band no paravalvular leak and leaflets functioning appropriately.
Mean gradient 2. Status post TR repair with 30 mm annuloplasty band with residual trace TR, mean gradient 1 mmHg. EF 45%. Status post left atrial appendage exclusion clip well-seated no flow seen into the left atrial appendage. Significant amount
of residual gas/air in left atrium. Moderate to severe RV systolic dysfunction.
Echo 11/08/2024: EF 50-55%, RV top normal size, s/p MV repair with peak/mean gradients across the mitral valve of 6/3 mmHg, respectively, no MR, s/p TV repair with a mean gradient of 1 mmHg, trace TR, normal pericardium without effusion.
Echo 11/11/2024: EF 50 to 55%, reduced RV systolic function, status post MV repair and mitral valve opens normally with trace MR
Plan:
- Volume status is improving with a brisk response of diuresis to IV Lasix yesterday. Weight is down 7 pounds and fluid balance -2.5 L. Renal function stable with BUN and creatinine of 26 and 0.8 and potassium 4.4
Still volume overloaded and will benefit from ongoing diuresis
Her IV Lasix has been stopped with plan to switch her to oral diuretic at an increased dose of Bumex of 1 mg p.o. twice daily
She has not received any diuretic yet this morning, she still volume overloaded so we will give a one-time dose of Lasix 40 mg IV now and orals can start tonight as maintenance
When she is discharged from acute inpatient she will need BMP and magnesium within a week
When she is discharged from acute inpatient if her weight drops to below 115 pounds we will be concerned she is over diuresed and would drop Bumex back to 0.5 mg daily
-EF 50-55% by echo 11/11/24 following RP Impella removal. EF remains normal s/p MV repair with peak/mean gradients 16/4mmHg and trace MR by repeat echo 11/17.
-remains in rate controlled afib. Patient with known paroxysmal Afib and had left and right atrial maze (combination of cryo and RF ablation) on 11/08/24. continue lopressor 12.5mg Q12H, amiodarone. Recommend ongoing OAC and amiodarone and if remains
in A-fib after 4 weeks as an outpatient could perform elective outpatient CV
-reduce eliquis dose to 2.5mg BID due to age >80 and weight<60Kg.
-Patient being evaluated for [facility]. continue PT/OT
-OP cardiac follow up with [facility]
HPI 11/08/2024: Patient is a 84-year-old female with severe symptomatic mitral valve regurgitation, moderate to severe tricuspid regurgitation, heart failure with preserved ejection fraction, paroxysmal atrial fibrillation on chronic anticoagulation
with Eliquis, history of TIA and migraine headache. Patient developed symptomatic mixed valvular disease and worsening heart failure symptoms requiring diuretic therapy. She underwent cardiac catheterization September 2024 which demonstrated no
significant coronary artery disease. She now presents for elective valve repair of mitral and tricuspid valves as well as maze and left atrial appendage clipping. Cardiology being asked to see patient postoperatively.
Progress Note - Coding Support Specialist
Subjective
Date of Service: November 19, 2024
She tells me that overall she feels okay. No shortness of breath or chest pain. She tells me that she still feels 'bloated'
Objective
Labs:
11/18/24 05:00
11/19/24 05:31
Labs
Hgb 10.0 g/dL (12.0-16.0) L 11/18/24 05:00
Hct 29.6 % (37.0-47.0) L 11/18/24 05:00
Plt Count 160 10^3/uL (130-400) D 11/18/24 05:00
PT 13.1 Sec (11.4-14.6) 11/13/24 07:55
INR 0.96 11/13/24 07:55
APTT 32.1 Sec (23.4-35.0) 11/13/24 07:55
Sodium 136 mmol/L (135-145) 11/19/24 05:31
Potassium 4.4 mmol/L (3.5-5.1) 11/19/24 05:31
BUN 26 mg/dl (7-17) H 11/19/24 05:31
Creatinine 0.8 mg/dL (0.6-1.0) 11/19/24 05:31
Glucose 99 mg/dl (70-99) 11/19/24 05:31
Vital Signs and I&O:
Vital Signs
Temp Pulse Resp BP Pulse Ox
98.2 F 79 16 127/71 97
11/19/24 03:30 11/19/24 09:16 11/19/24 03:30 11/19/24 09:16 11/19/24 04:07
Vital Signs
Temp Pulse Resp BP Pulse Ox
98.2 F 79 16 127/71 97
11/19/24 03:30 11/19/24 09:16 11/19/24 03:30 11/19/24 09:16 11/19/24 04:07
Intake & Output
11/17/24 11/18/24 11/19/24 11/20/24
06:59 06:59 06:59 06:59
Intake Total 711.5 / 711.5 1240 / 1240 770 / 770
Output Total 1800 / 1800 2100 / 2100 4350 / 4350 200 / 200
Balance -1088.5 / -1088.5 -860 / -860 -3580 / -3580 -200 / -200
Physical Exam
Physical Exam
Elderly woman no acute distress
Heart is irregularly irregular normal S1 and S2 no S3 no S4 is grade 1/6 apical holosystolic murmur no rubs
Lungs are clear to auscultation bilaterally
Extremities show +2 lower extremity edema bilaterally, legs currently wrapped.
[2024-11-19] MEDS: LASIX 40 MG IV (13:37)
--- NOTE | 2024-11-19 16:00 | PTCARENOTE ---
urine yellow now, remains cloudy and foul smelling. will continue to montior. VSS.
[2024-11-19] MEDS: BUMEX 1 MG PO (20:21)
[2024-11-19] MEDS: SENOKOT-S 1 TABLET PO (20:22)
--- NOTE | 2024-11-19 20:40 | PTCARENOTE ---
received pt from previous rn. pt resting in chair at time of assessment. VSS, Pt AAOx4, A-fib per tele monitor HR 80s. +2 lower extremity edema, weak DP pulses, pox 98% on RA lungs diminished, fine crackles at left base noted, voids spontaneously in
bathroom, +bs, +BM, all surgical incisions intact, PIVx1 flushes, plan of care discussed and questions encouraged, call florence within reach
[2024-11-19] MEDS: TYLENOL 1000 MG PO (21:25)
[2024-11-19] MEDS: XANAX 0.25 MG PO (21:42)
[2024-11-20] VITALS (14 sets, daily range): BP systolic 87–128; BP diastolic 46–106; PULSE 84; BMI 23.4
--- NOTE | 2024-11-20 00:08 | PTCARENOTE ---
pt resting comfortably in bed, A fib per tele monitor, VSS, assessment remains unchanged
--- NOTE | 2024-11-20 04:35 | PTCARENOTE ---
routine labs obtained, a-fib per tele monitor, VSS, assessment unchanged
[2024-11-20 05:12] LABS: Blood Urea Nitrogen 26 mg/dl (7-17); Calcium 8.9 mg/dl (8.4-10.2); Chloride 102 mmol/L (98-107); Magnesium 2.1 mg/dl (1.6-2.3); Potassium 4.5 mmol/L (3.5-5.1); Sodium 136 mmol/L (135-145)
[2024-11-20 05:22] LABS: Carbon Dioxide 29 mmol/L (22-30); Estimated Creatinine Clearance 43 ml/min; Glucose 102 mg/dl (70-99); eGFR > 60.00
--- NOTE | 2024-11-20 05:24 | W.PN.CT ---
Today's Communication / Plan
-
-pod #12
-no significant issues overnight
-remains in a-fib. Eliquis started 11/13 (on ASA and Eliquis)
-continue diuresis, transitioned to PO, appreciate cards recs
-follow b/l pleural effusions
-continue PT/OT.
-plans for d/c [facility] when ready (Thursday?)
Assessment / Plan
-
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
maze [combination of RF and cryoablation]; Left atrial appendage exclusion [45 mm clip] on 11/08/[address] Osborne, pod #12
- s/p Successful placement of an Impella RP flex via the right internal jugular vein on 11/08/[address] Camejo (dcd on 11/11)
- Intraop SARAI: LVEF preop was 55% with no significant regional wma. She does have a history of cardiomyopathy with mildly dilated right and left ventricles. Her left atrium and right atrium are also dilated. Following surgery EF did reduce to
+45% and she had some septal inferior wall hypokinesis with dyskinesia. The lateral wall was moving appropriately. Her right ventricle did appear to be mild to mild to moderately depressed after valve repair. At the conclusion of the case off
cardiopulmonary bypass there was no residual mitral valve insufficiency and no residual tricuspid valve insufficiency. The mean gradient across the mitral valve was 2 mmHg and the mean gradient across tricuspid valve was 1 mmHg. She did have
significant PACs conclusion of the case and required defibrillation x 2 likely secondary to air entrainment down the coronary. Follow-up transesophageal echocardiogram demonstrated that there was still residual air coming out of her pulmonary veins
and sitting in her left atrium.
- Degenerative mitral valve disease with severe insufficiency, type II pathology with some component of type I pathology
- Functional tricuspid valve insufficiency
- PVCs
- TIA
- Atrial fibrillation
- Osteoporosis
- Supraventricular tachycardia
- CHF, significant volume overload
- Acute postop blood loss anemia - s/p 1 pRBC on 11/08
- Acute postop thrombocytopenia - s/p 1 unit platelet on 11/09
- Acute postop hypovolemia with subsequent hypervolemia
- Acute postop atelectasis, b/l small pleural effusions, R>L
Subjective
Procedure
s/p Radical mitral valve repair; Tricuspid valve repair [30 mm band annuloplasty]; Open surgical left atrial maze and right atrial maze [combination of RF and cryoablation]; Left atrial appendage exclusion [45 mm clip] on 11/08/[address] Osborne
-
Date of Service: November 20, 2024
Objective Data
-
Lab Results
11/18/24 05:00
11/20/24 04:20
PT 13.1 Sec (11.4-14.6) 11/13/24 07:55
INR 0.96 11/13/24 07:55
APTT 32.1 Sec (23.4-35.0) 11/13/24 07:55
Vital Signs
Vital Signs
Temp Pulse Resp BP Pulse Ox
97.6 F 71 20 108/67 98
11/20/24 04:00 11/20/24 04:23 11/20/24 04:00 11/20/24 04:23 11/20/24 04:00
CT Intake/Output/Weight
11/19/24 11/19/24 11/20/24
06:59 18:59 06:59
Intake Total 410 / 770
Output Total 1500 / 4350 2024
Balance -1090 / -3580 -825 / -2024 -1199
SaO2: 98
Physical Exam
-
General: Awake and Oriented
Cardiovascular: Irregular rate & rhythm, No Murmurs and No Rub
Respiratory: Clear and Equal
Sternum: Stable
Incision: Clean and Dry
Extremities: Edema +1
Data Reviewed
-
Lab Results: Results Reviewed
Medications: Active Meds Reviewed
Chest X-Ray: Report Reviewed
ECG: Report Reviewed
[2024-11-20] MEDS: TYLENOL PO ×2 (07:23→13:45)
--- NOTE | 2024-11-20 08:00 | PTCARENOTE ---
Resumed care of patient from previous RN. AAOx3. Afib on monitor, HR in 70's. wk Pulses +2 edema. 97% RA. Lungs diminished but clear. SOB on exert for longer walks. + bowel sounds. Urine clear today. Yellow. MSI clean dry and intact. PO bumex this
AM. will continue to monitor.
[2024-11-20] MEDS: LOW STRENGTH ASPIRIN 81 MG PO (08:47)
[2024-11-20] MEDS: OSCAL CAL 500 1000 MG PO ×2 (08:47→19:25)
[2024-11-20] MEDS: BUMEX 1 MG PO ×2 (08:48→15:52)
[2024-11-20] MEDS: VITAMIN C 500 MG PO (08:48)
[2024-11-20] MEDS: MAGNESIUM OXIDE 500 MG PO ×2 (08:49→19:25)
[2024-11-20] MEDS: LOPRESSOR 12.5 MG PO ×2 (08:49→19:25)
[2024-11-20] MEDS: AUGMENTIN 875 MG/125 MG 1 TABLET PO ×2 (08:50→19:24)
[2024-11-20] MEDS: MUCINEX 600 MG PO ×2 (08:50→19:25)
[2024-11-20] MEDS: PROTONIX 40 MG PO (08:50)
[2024-11-20] MEDS: ZINC 50 MG PO (08:50)
[2024-11-20] MEDS: PACERONE 200 MG PO ×3 (08:51→21:29)
[2024-11-20] MEDS: ELIQUIS 2.5 MG PO ×2 (08:51→19:24)
[2024-11-20] MEDS: NEURONTIN 100 MG PO ×3 (08:51→21:29)
[2024-11-20] MEDS: SENOKOT-S PO (08:51)
[2024-11-20] MEDS: THERAGRAN 1 TABLET PO (08:51)
[2024-11-20] MEDS: VITAMIN D3 (cholecalciferol) 25 MCG PO (08:51)
[2024-11-20] MEDS: KCL 20 MEQ PO ×2 (08:51→19:24)
[2024-11-20] MEDS: NSS IV (08:52)
--- NOTE | 2024-11-20 14:59 | PTCARENOTE ---
Rec'd pt from CVICU. Pt OOB in recliner chair. Surgical sites intact. Tele- afib. BP 103/59. POX 97% RA. Pt has no complaints pain/discomfort. Oriented pt to room. Plan of care discussed w/ pt and verbalizes understanding. Call ludivina w/in reach.
[2024-11-20] MEDS: SENOKOT-S 1 TABLET PO (19:26)
--- NOTE | 2024-11-20 21:13 | PTCARENOTE ---
Rec'd pt at change of shift. Pt AAO*3, VSS, and AFib on TELE monitor. Pt denies any pain or discomfort and updated on plan of care, Pt awaiting bed at rehab , verbalizing understanding of care plan. Pt resting with call florence in reach and plan of
care ongoing. See MAR and flowchart for full pt care and assessment.
[2024-11-20] MEDS: XANAX 0.25 MG PO (21:29)
[2024-11-20] MEDS: TYLENOL 1000 MG PO (21:29)
[2024-11-20 22:05] LABS: Glucose - Point of Care 135 mg/dl (70-99)
[2024-11-21] VITALS (7 sets, daily range): BP systolic 100–129; BP diastolic 55–76; O2SAT 98; BMI 23.6
--- NOTE | 2024-11-21 02:55 | W.PN.CT ---
Today's Communication / Plan
-
No significant issues overnight�
Remains in a-fib. Eliquis started 11/13 (on ASA and Eliquis)�
Continue diuresis, transitioned to PO, appreciate cards recs �
Follow b/l pleural effusions�
Continue PT/OT.�
Plans for d/c to [facility] �
Assessment / Plan
-
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
maze [combination of RF and cryoablation]; Left atrial appendage exclusion [45 mm clip] on 11/08/[address] Osborne, pod #13
- s/p Successful placement of an Impella RP flex via the right internal jugular vein on 11/08/[address] Camejo (dcd on 11/11)
- Intraop SARAI: LVEF preop was 55% with no significant regional wma. She does have a history of cardiomyopathy with mildly dilated right and left ventricles. Her left atrium and right atrium are also dilated. Following surgery EF did reduce to
+45% and she had some septal inferior wall hypokinesis with dyskinesia. The lateral wall was moving appropriately. Her right ventricle did appear to be mild to mild to moderately depressed after valve repair. At the conclusion of the case off
cardiopulmonary bypass there was no residual mitral valve insufficiency and no residual tricuspid valve insufficiency. The mean gradient across the mitral valve was 2 mmHg and the mean gradient across tricuspid valve was 1 mmHg. She did have
significant PACs conclusion of the case and required defibrillation x 2 likely secondary to air entrainment down the coronary. Follow-up transesophageal echocardiogram demonstrated that there was still residual air coming out of her pulmonary veins
and sitting in her left atrium.
- Degenerative mitral valve disease with severe insufficiency, type II pathology with some component of type I pathology
- Functional tricuspid valve insufficiency
- PVCs
- TIA
- Atrial fibrillation
- Osteoporosis
- Supraventricular tachycardia
- CHF, significant volume overload
- Acute postop blood loss anemia - s/p 1 pRBC on 11/08
- Acute postop thrombocytopenia - s/p 1 unit platelet on 11/09
- Acute postop hypovolemia with subsequent hypervolemia
- Acute postop atelectasis, b/l small pleural effusions, R>L
Subjective
Procedure
s/p Radical mitral valve repair; Tricuspid valve repair [30 mm band annuloplasty]; Open surgical left atrial maze and right atrial maze [combination of RF and cryoablation]; Left atrial appendage exclusion [45 mm clip] on 11/08/[address] Osborne
-
Date of Service: November 21, 2024
Objective Data
-
Lab Results
11/18/24 05:00
11/20/24 04:20
PT 13.1 Sec (11.4-14.6) 11/13/24 07:55
INR 0.96 11/13/24 07:55
APTT 32.1 Sec (23.4-35.0) 11/13/24 07:55
Vital Signs
Vital Signs
Temp Pulse Resp BP Pulse Ox
98.6 F 66 16 111/71 95
11/20/24 22:16 11/20/24 22:16 11/20/24 22:16 11/20/24 21:29 11/20/24 23:02
CT Intake/Output/Weight
11/20/24 11/20/24 11/21/24
06:59 18:59 06:59
Intake Total 400 / 400
Output Total 1199 1475 / 1475
Balance -1200 / -2024 -1075 / -1075
SaO2: 95
[2024-11-21] MEDS: TYLENOL 1000 MG PO ×2 (04:28→13:39)
[2024-11-21] MEDS: ELIQUIS 2.5 MG PO (09:12)
[2024-11-21] MEDS: AUGMENTIN 875 MG/125 MG 1 TABLET PO (09:12)
[2024-11-21] MEDS: LOPRESSOR 12.5 MG PO (09:13)
[2024-11-21] MEDS: KCL 20 MEQ PO (09:13)
[2024-11-21] MEDS: MUCINEX 600 MG PO (09:14)
[2024-11-21] MEDS: MAGNESIUM OXIDE 500 MG PO (09:14)
[2024-11-21] MEDS: PACERONE 200 MG PO ×2 (09:14→15:58)
[2024-11-21] MEDS: NEURONTIN 100 MG PO ×2 (09:14→15:58)
[2024-11-21] MEDS: LOW STRENGTH ASPIRIN 81 MG PO (09:14)
[2024-11-21] MEDS: OSCAL CAL 500 1000 MG PO (09:14)
[2024-11-21] MEDS: SENOKOT-S 1 TABLET PO (09:15)
[2024-11-21] MEDS: PROTONIX 40 MG PO (09:15)
[2024-11-21] MEDS: THERAGRAN 1 TABLET PO (09:15)
[2024-11-21] MEDS: VITAMIN C 500 MG PO (09:15)
[2024-11-21] MEDS: VITAMIN D3 (cholecalciferol) 25 MCG PO (09:16)
[2024-11-21] MEDS: ZINC 50 MG PO (09:16)
[2024-11-21] MEDS: NSS IV (09:16)
[2024-11-21] MEDS: FLUSH (NSS) 1 FLUSH IV (09:16)
[2024-11-21] MEDS: BUMEX PO ×2 (09:16→15:58)
[2024-11-21] MEDS: BUMEX 1 MG PO (09:29)
--- NOTE | 2024-11-21 09:57 | W.PN.CARDCBS ---
Today's Communication / Plan
-
Stable for discharge to rehab
Continue outpatient diuretic
Check blood work in 1 week.
Impression / Plan
-
PCP: Dayana Dotson
Diffusion Furnace Operator: Quinten Pepper
Impression:
Severe Mitral valve regurgitation
s/p mitral valve repair with 34 mm band annuloplasty band 11/08/2024
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
s/p tricuspid repair with 30 mm band annuloplasty band 11/08/2024
Paroxysmal atrial fibrillation
s/p right and left atrial maze (combination of cryo and RF ablation) 11/08/2024
Left atrial appendage clip 45 mm device 11/08/2024, Dr. Osborne
PVCs
h/o TIA
Paroxysmal Atrial fibrillation
Osteoporosis
Supraventricular tachycardia
Heart failure with preserved ejection fraction
Hypernatremia
Cardiac catheterization 10/05/2024: LM: Patent. LAD: Patent. Left circumflex: Patent. RCA: Patent. HEMODYNAMIC FINDINGS (mmHg): LV(s/d,EDP): 115/12, 17; Ao(s/d,m): 115/67, 90. LVG EF 65%, +4 MR
Echo 09/12/2024: EF 50 to 55%. No regional wall motion abnormalities. Mild concentric LVH. Normal RV size and function. Severely dilated left atrium with volume index 57.0 mL/m2. Severe mitral regurgitation with moderate mitral annular
calcification. Moderate tricuspid regurgitation. RVSP 33.3 mmHg.
Intra-op SARAI 11/08/2024: Severe MR with prolapse of P2 with flail segment. Mild to moderate TR. By atrial enlargement. Post operative SARAI status post MV repair with annuloplasty band no paravalvular leak and leaflets functioning appropriately.
Mean gradient 2. Status post TR repair with 30 mm annuloplasty band with residual trace TR, mean gradient 1 mmHg. EF 45%. Status post left atrial appendage exclusion clip well-seated no flow seen into the left atrial appendage. Significant amount
of residual gas/air in left atrium. Moderate to severe RV systolic dysfunction.
Echo 11/08/2024: EF 50-55%, RV top normal size, s/p MV repair with peak/mean gradients across the mitral valve of 6/3 mmHg, respectively, no MR, s/p TV repair with a mean gradient of 1 mmHg, trace TR, normal pericardium without effusion.
Echo 11/11/2024: EF 50 to 55%, reduced RV systolic function, status post MV repair and mitral valve opens normally with trace MR
Plan:
Doing well and feeling better overall. Volume status continues to improve.
- Volume status is improving with a brisk response of diuresis to IV Lasix yesterday. Weight is down 15 pounds total now 120 pounds with dry weight around 110 pounds preadmission according to patient. She is ambulating without problem to the
bathroom using her walker. Renal function stable yesterday and other labs and telemetry stable which I independently reviewed.
Continue outpatient oral diuretic
Follow labs as an outpatient closely
-EF 50-55% by echo 11/11/24 following RP Impella removal. EF remains normal s/p MV repair with peak/mean gradients 16/4mmHg and trace MR by repeat echo 11/17.
-remains in rate controlled afib. Patient with known paroxysmal Afib and had left and right atrial maze (combination of cryo and RF ablation) on 11/08/24.
Continue lopressor 12.5mg Q12H, amiodarone.
Recommend ongoing OAC and amiodarone and if remains in A-fib after 4 weeks as an outpatient could perform elective outpatient CV
Agree with discharge to [place] rehab. Discussed with primary service
HPI 11/08/2024: Patient is a 84-year-old female with severe symptomatic mitral valve regurgitation, moderate to severe tricuspid regurgitation, heart failure with preserved ejection fraction, paroxysmal atrial fibrillation on chronic anticoagulation
with Eliquis, history of TIA and migraine headache. Patient developed symptomatic mixed valvular disease and worsening heart failure symptoms requiring diuretic therapy. She underwent cardiac catheterization September 2024 which demonstrated no
significant coronary artery disease. She now presents for elective valve repair of mitral and tricuspid valves as well as maze and left atrial appendage clipping. Cardiology being asked to see patient postoperatively.
Progress Note - Diffusion Furnace Operator
Subjective
Date of Service: November 21, 2024
She is feeling better overall. Wants to work on strengthening.
Objective
Labs:
11/18/24 05:00
11/20/24 04:20
Labs
Hgb 10.0 g/dL (12.0-16.0) L 11/18/24 05:00
Hct 29.6 % (37.0-47.0) L 11/18/24 05:00
Plt Count 160 10^3/uL (130-400) D 11/18/24 05:00
PT 13.1 Sec (11.4-14.6) 11/13/24 07:55
INR 0.96 11/13/24 07:55
APTT 32.1 Sec (23.4-35.0) 11/13/24 07:55
Sodium 136 mmol/L (135-145) 11/20/24 04:20
Potassium 4.5 mmol/L (3.5-5.1) 11/20/24 04:20
BUN 26 mg/dl (7-17) H 11/20/24 04:20
Creatinine 0.7 mg/dL (0.6-1.0) 11/20/24 04:20
Glucose 102 mg/dl (70-99) H 11/20/24 04:20
Vital Signs and I&O:
Vital Signs
Temp Pulse Resp BP Pulse Ox
97.8 F 77 20 124/58 95
11/21/24 08:18 11/21/24 09:13 11/21/24 08:18 11/21/24 09:13 11/21/24 08:18
Vital Signs
Temp Pulse Resp BP Pulse Ox
97.8 F 77 20 124/58 95
11/21/24 08:18 11/21/24 09:13 11/21/24 08:18 11/21/24 09:13 11/21/24 08:18
Intake & Output
11/19/24 11/20/24 11/21/24 11/22/24
06:59 06:59 06:59 06:59
Intake Total 770 / 770 400 / 400
Output Total 4350 / 4350 2024 / 2024 172 / 172
Balance -0 / -358 -2024 / -2024 -1324 / -132
Physical Exam
Physical Exam
General: Elderly woman with walker
Heart: Irregularly irregular, no murmurs, No S3, S4, no rubs.
Lungs: Coarse breath sounds
Extremities: No clubbing, cyanosis and trace to +1 edema bilaterally.
--- NOTE | 2024-11-21 11:02 | PTCARENOTE ---
Patient assisted oob to the chair this morning. Patient hopeful to go to rehab today. TT to CT surgery NUCLEAR PLANT EQUIPMENT OPERATOR to remove RIJ bumper. Call florence in reach.
--- NOTE | 2024-11-21 11:30 | W.DCSUMMARY ---
Discharge Summary
Discharge Data
Date of Admission: 11/08/24
Date of Discharge: 11/21/24
-
Pending Results: No
Hospital Course
Primary care physician: Dayana Dotson
Outpatient life support technician: Quinten Pepper
Inpatient consultants: [facility] cardiology, pulmonary wireline supervisor, PT/OT, rehab services
Procedures:
1. Complex mitral valve repair, tricuspid valve repair, maze, left atrial appendage exclusion
2. RP Impella
Primary Diagnosis:
1. Degenerative mitral valve disease with functional tricuspid valve insufficiency, persistent atrial fibrillation
Secondary Diagnoses:
1. Functional tricuspid valve insufficiency
2. Hx TIA
3. Osteoporosis
4. Supraventricular tachycardia
5. Acute cardiogenic shock/RV failure with RP Impella
6. Acute postop blood loss anemia - s/p 1 pRBC on 11/08
7. Acute postop thrombocytopenia - s/p 1 unit platelet on 11/09
9. Acute postop hypovolemia with subsequent hypervolemia
10. Acute postop atelectasis, b/l small pleural effusions, R>L
11. UTI (GPCs in urine)
12. ambulatory dysfunction from deconditioning
HPI: 84-year-old female was admitted on 11/11/2024 for elective valve repair of mitral and tricuspid valves as well as maze and left atrial appendage clipping.
Hospital course: Patient underwent radical mitral valve repair [triangular resection of P2 flail segment with primary repair, cleft closure between P2 and P3 and P1 and P2, 34 mm band annuloplasty], tricuspid valve repair [30 mm band annuloplasty],
open surgical left atrial maze and right atrial maze [combination of RF and cryoablation], and left atrial appendage exclusion [45 mm clip] by Dr Salbador Osborne. Patient experienced a brief episode of V-fib intra-op, necessitating resuscitation,
likely due to MicroAir emboli. IntraOp SARAI reported EF of 45%, trace MR with mean MV gradient 2mmHg, trace TR with mean TV gradient 1mmHg, and moderate to severe right ventricular systolic dysfunction. Patient returned to CV ICU on epi at 6,
Levophed at 8, milrinone at 0.375, vasopressin at 0.04, Precedex and insulin. Repeat bedside TTE reported severe RV dysfunction. Dr. Osborne placed left IJ Cordis and patient brought to Airport Maintenance Laborer for RP Impella placement. Epinephrine was then weaned
off. Dobutamine was added. Impella was at P level 4. Patient continued on a slow wean of dobutamine following the mixed venous O2 saturations. The Impella was removed at bedside on postoperative day #3. Systemic heparin as needed for the device
was then discontinued. Patient began low-dose diuretic on postoperative day #4. Aspirin and Eliquis were initiated at this point as platelet count improved to 72,000. Epicardial atrial and ventricular pacing wires were removed. Zee catheter
removed on postoperative day #7. Dobutamine was weaned off on postoperative day #8. Beta-daniella was resumed on postoperative day #9 and patient continued with twice daily IV diuresis. L IJ cordis was removed. Patient transitioned to oral diuretics
on postoperative day #12. Right IJ retention suture was removed on postoperative day #13. Weight decreased to 54.7 kg (base 51 kg) with significant reduction in bilateral lower extremity edema. Patient was treated with Bactrim for GPC's noted in
urine and will complete antibiotic course on 11/24/24. Patient was deemed stable for discharge to [facility] acute rehab on postoperative day #13 with continuation of oral twice daily Bumex and amiodarone to maintain sinus rhythm. Patient should continue
with daily weights while on diuretic therapy and will need a CBC and BMP repeated in 1 week.
Home medication changes:
Bumex 0.5 mg daily increased to 1 mg twice daily
Eliquis 5 mg twice daily reduced to 2.5 mg twice daily due to age and weight
Protonix 40mg daily while on Eliquis
Bactrim x 3 days for UTI
Amiodarone 200mg daily
Metoprolol tartrate 50 mg twice daily changed to Toprol XL 25 mg daily
Stop magnesium maleate
Stop omega-3
Discharge Plan
-
Patient Disposition: Acute Rehab Facility
Discharge Diagnosis/Procedures: Mitral and tricuspid repair, MAZE, left atrial appendage clip, right sided Impella
Condition: Fair
Diet: Low Cholesterol and Low Sodium
Activity: No strenuous activity
Driving Restrictions: Not until seen by your Dr
Bathing Restrictions: OK to Shower
Blood Work: CBC and BMP in 1 week
Other Services: Cardiac Rehab
Wound Care: shower using soap and water, pat incisions dry.
Specialty Instructions: Weigh Daily- Call MD for wt gain/loss 3 lbs overnight/5 lbs in 1 week
Activity Restrictions/Additional Instructions:
Please call to make appointmetns for Phase II Cardiac Rehab:
1) [facility]
[phone] [facility]
[address] [place] [address]
Referrals:
Quinten Pepper MD [Active] - 12/22/24 2:00 pm
Dayana Dotson DO [Family Provider] - in four to six weeks
Referral Note: Please make an appointment in four to six weeks.
Salbador Osborne MD [Active] - 12/12/24 1:00 pm
Prescriptions:
New
acetaminophen 325 mg Tablet
650 mg PO Q4HPRN PRN (Reason: mild pain,headache,temp >101F ) Qty: 0 0RF
potassium chloride 20 mEq Tablet,Er Particles/Crystals
20 meq PO BID Qty: 0 0RF
aspirin 81 mg Tablet,Chewable
81 mg PO DAILY Qty: 0 0RF
bumetanide 1 mg Tablet
1 mg PO BID AT 0800,1600 Qty: 0 0RF
gabapentin 100 mg Capsule
100 mg PO TID Qty: 0 0RF
oxycodone 5 mg Tablet
5 mg PO Q4HPRN PRN (Reason: severe pain) Qty: 10 0RF
Eliquis 2.5 mg Tablet
2.5 mg PO BID Qty: 60 1RF
metoprolol succinate [Toprol XL] 25 mg tablet extended release 24 hr
25 mg PO DAILY Qty: 30 1RF
amiodarone 200 mg tablet
200 mg PO DAILY Qty: 30 1RF
amoxicillin-pot clavulanate 875-125 mg Tablet
1 tab PO Q12 Qty: 6 0RF
pantoprazole 40 mg Tablet,Delayed Release (Dr/Ec)
40 mg PO DAILY Qty: 0 1RF
Continued
ascorbic acid (vitamin C) [Vitamin C] 500 mg Tablet
500 mg PO DAILY
zinc 50 mg Tablet
50 mg PO DAILY
cholecalciferol (vitamin D3) [Vitamin D3] 25 mcg (1,000 unit) Capsule
25 mcg PO DAILY
multivit with min-folic acid 0.4 mg Tablet
1 tab PO DAILY
coQ10 (ubiquinol) 100 mg Capsule
100 mg PO DAILY
Probiotic 10 billion cell Capsule
10,000 mmu cells PO DAILY
calcium 500 mg Tablet
1,000 mg PO BID
Discontinued
metoprolol tartrate 50 mg Tablet
50 mg PO BID
bumetanide 1 mg Tablet
0.5 mg PO DAILY
Eliquis 5 mg Tablet
5 mg PO BID
Magnesium Maleate
100 mg PO BID
[place] 3 [place] Oil
1 tab PO DAILY
sumatriptan succinate 25 mg Tablet
25 mg PO ONCE
Discharge Orders:
Discharge Patient (As Directed); Ordered 11/21/24
Ordered By: Lianne Zamora
Discharge Date and Time
Print Language: ALBANIAN
--- NOTE | 2024-11-21 12:01 | CM ---
Addendum entered by Paradise Bridges 11/21/24 15:32:
all documentation completed, accepted to [facility]- transport today w[facility] van at 4pm. pt is aware it is $155, and she is agreeable to cost.
Original Note:
pt cleared for dc, has bed at [facility]. awaiting OT notes (was not seen since 11/18) to set up transfer. called OT to req her to be seen.
--- NOTE | 2024-11-21 17:39 | PTCARENOTE ---
Patient assisted with showering after RIJ biopatch and bumper removed by CT surgery DIGITAL COORDINATOR. Thigh high teds placed and patient assisted with dressing. Did not want to take PM bumex, worried about needing to urinate on route to the facility. Telephoned
SNF and report given to Mannie and told him about medications that would still be needed. Patient transferred with her belongings to rehab.
== END 2024-11-21 17:44 | DRG 215 ==
LOC: IVU 04:54
PROVIDERS: Anesthesiology; Clinical Nurse Specialist Acute Care; Nurse Practitioner; Physician Assistant; Physician Assistant Medical; Student in an Organized Health Care Education/Training Program; ADMITTING PHYSICIAN Thoracic Surgery (Cardiothoracic Vascular Surgery); CONSULT PHYSICIAN Internal Medicine; CONSULT PHYSICIAN Physical Medicine & Rehabilitation; CONSULT PHYSICIAN Urology; FAMILY PHYSICIAN Family Medicine; OTHER PHYSICIAN Internal Medicine Cardiovascular Disease
PROC: 02HA3RZ Insertion of Short-term External Heart Assist System into Heart, Percutaneous Approach (ICD-10-PCS; 2024-11-08)
PROC: 5A0221D Assistance with Cardiac Output using Impeller Pump, Continuous (ICD-10-PCS; 2024-11-08)
PROC: 02UG0JZ Supplement Mitral Valve with Synthetic Substitute, Open Approach (ICD-10-PCS; 2024-11-08)
PROC: 02L70CK Occlusion of Left Atrial Appendage with Extraluminal Device, Open Approach (ICD-10-PCS; 2024-11-08)
PROC: 30233N1 Transfusion of Nonautologous Red Blood Cells into Peripheral Vein, Percutaneous Approach (ICD-10-PCS; 2024-11-08)
PROC: 02UJ0JZ Supplement Tricuspid Valve with Synthetic Substitute, Open Approach (ICD-10-PCS; 2024-11-08)
PROC: 02580ZZ Destruction of Conduction Mechanism, Open Approach (ICD-10-PCS; 2024-11-08)
PROC: B24BZZ4 Ultrasonography of Heart with Aorta, Transesophageal (ICD-10-PCS; 2024-11-08)
PROC: 02HV33Z Insertion of Infusion Device into Superior Vena Cava, Percutaneous Approach (ICD-10-PCS; 2024-11-08)
PROC: 5A1221Z Performance of Cardiac Output, Continuous (ICD-10-PCS; 2024-11-08)
PROC: 30233R1 Transfusion of Nonautologous Platelets into Peripheral Vein, Percutaneous Approach (ICD-10-PCS; 2024-11-09)
PROC: 02PA3RZ Removal of Short-term External Heart Assist System from Heart, Percutaneous Approach (ICD-10-PCS; 2024-11-11)
DX: I34.0 Nonrheumatic mitral (valve) insufficiency (principal); I49.01 Ventricular fibrillation; I50.43 Acute on chronic combined systolic (congestive) and diastolic (congestive) heart failure; I51.1 Rupture of chordae tendineae, not elsewhere classified; R57.0 Cardiogenic shock; I48.19 Other persistent atrial fibrillation; I47.10 Supraventricular tachycardia, unspecified; E87.1 Hypo-osmolality and hyponatremia; N39.0 Urinary tract infection, site not specified; D62 Acute posthemorrhagic anemia; J98.11 Atelectasis; I42.9 Cardiomyopathy, unspecified; E87.0 Hyperosmolality and hypernatremia; I49.3 Ventricular premature depolarization; M81.0 Age-related osteoporosis without current pathological fracture; E78.00 Pure hypercholesterolemia, unspecified; M41.9 Scoliosis, unspecified; D69.59 Other secondary thrombocytopenia; E87.6 Hypokalemia; R31.0 Gross hematuria; E86.1 Hypovolemia; I34.1 Nonrheumatic mitral (valve) prolapse; I36.1 Nonrheumatic tricuspid (valve) insufficiency; Z79.01 Long term (current) use of anticoagulants; Z79.899 Other long term (current) drug therapy; Z86.73 Personal history of transient ischemic attack (TIA), and cerebral infarction without residual deficits
CPT/HCPCS: 93308; 33259; 33990; 36415; 71045; 71046; 71275; 74174; 80048; 80053; 80076; 81003; 81015; 82248; 82330; 82565; 82805; 82810; 82947; 82962; 83036; 83605; 83615; 83735; 84132; 84145; 84302; 84520; 85014; 85018; 85025; 85027; 85049; 85347; 85379; 85384; 85610; 85730; 86850; 86900; 86901; 86920; 87070; 87077; 87086; 87186; 93005; 93312; 93320; 93321; 93325; 93880; 94002; 97116; 97163; 97167; 97530; 97535; C1769; C1894; J2916; P9016; P9045; P9047; P9073; Q9967

== ENCOUNTER → 2025-06-01 14:36 | Outpatient (REF) | payer MEDICARE, OTHER, SELFPAY | LOC: RCS 14:36 | PROVIDERS: ATTENDING PHYSICIAN Nurse Practitioner Acute Care | DX: Z98.890 Other specified postprocedural states (principal); Z01.810 Encounter for preprocedural cardiovascular examination | CPT/HCPCS: 93306 ==